=== PATIENT | male | born 1965 | race Caucasian/White ===

== ENCOUNTER 2016-11-25 03:28 | Inpatient (IN) | payer MEDICARE, MEDICAID ==
[2016-11-25] VITALS (10 sets, daily range): BP systolic 122–159; BP diastolic 66–87; PULSE 102–120; RESP 16–21; O2SAT 92–97
[~2016-11-25] VITALS: Ht 170.2 cm; Wt 77.3 kg
[~2016-11-25 03:28] MED LIST: D-ME118S8 PO; GABA600T2 PO; GLPZ5T PO; HYDR-3797 PO; HYDR-656 PO; KEP500TA PO; METF500T4 PO; MILK THISTLE; VIT BCOMPLEX; Vit C; [UNRECOGNIZED DRUG - OTHER]
--- NOTE | 2016-11-25 03:39 | ED.REPORT ---
HPI-General Illness Date of Service Nov 25, 2016 ED Provider: Delonte Gustafson MD A 51 year old male with a history of schizophrenia, diabetes, hyperlipidemia, substance abuse, leukopenia, GI bleed, and alcoholism is brought to the ED via EMS due to nausea. The pt was found laying on the street dry heaving, but was not vomiting at the time. Per pt, his legs are in pain and his abdomen has been sore for weeks. History is limited due to pt condition. His initial blood alcohol level in the ED is 0.280. Nursing Notes Stated Complaint: NAUSEA Nursing Notes Reviewed: Yes Allergies: Coded Allergies: Penicillins (Verified Allergy, Severe, Anaphylaxis, 11/25/16) enoxaparin (Verified Allergy, Intermediate, aggitation, 10/06/16) Tetanus Vaccines and Toxoid (Verified Allergy, Unknown, Shortness of Breath, 11/25/16) Scheduled Ascorbic Acid (Vitamin C) 1,000 Mg Tab.chew 1,000 MG PO DAILY Gabapentin (Gabapentin) 600 Mg Tablet 600 MG PO BID Glipizide (Glipizide) 5 Mg Tablet 5 MG PO BIDWM Metformin (Metformin) 500 Mg Tablet 1,000 MG PO BID Milk Thistle Seed Extract (Milk Thistle) 140 Mg Capsule Unknown Dose PO DAILY Turmeric Root Extract (Turmeric) 500 Mg Capsule Unknown Dose PO DAILY Vit B Comp/C/FA/Iron/Vit E (Vitamin B Complex Tablet) 1 Each Tablet 1 EACH PO DAILY Scheduled PRN hydrOXYzine Hcl (HydrOXYzine Hcl) 25 Mg Tablet 25 MG PO TID PRN PRN For Itching General Time Seen by MD: 03:39 Chief Complaint Other (Nausea) Hx Obtained From: EMS Arrived By: Ambulance Sudden in Onset?: No Onset Occurred: Onset unknown Recent Healthcare: Recent doctor visit, Recent hospitalization Similar Sx Previous: Yes Past Medical History Past Medical History ho workup for seizures (negative EEG, was previously on Keppra, discontinued by neurology-see their consultation from February 2015) Admit 02/2015 - ETOH/GI Bleed (intubated) Alcoholic liver cirrhosis with a hx of encephalopathy Schizophrenia Diabetes Mellitus, type 2 with neuropathy Hyperlipidemia Active visual hallucinations History of violent behavior with long-term time served for assault History of substance abuse Thrombocytopenia Leukopenia Hyperammonemia Neuropathy in legs Reports: Diabetes mellitus, Gastritis, Hyperlipidemia Past Surgical History EGD on 02/28/2015 - revealed Ulcerative vs monilial esophagitis and Hypertensive portal gastropathy toe surgery Family History Noncontributory Smoking History Current Every Day Smoker Social History Patient is a daily drinker and has a long-standing history of alcoholism Alcohol Use: >5 per day Drug Use: THC Other Social History: Poor social support, Homeless Ambulatory Status Independent Review of Systems Unable to Obtain ROS Intoxicated Physical Exam Vital Signs Vital Signs Date Time Temp Pulse Resp B/P Pulse Ox O2 Delivery O2 Flow Rate FiO2 11/25/16 03:30 36.7 120 20 93 Room Air Initial VS: Reviewed, Vital signs abnormal General/Constitutional: Awake disheveled growling vomit in hair covered in large amount of guaiac positive green-black stool Head / Eyes: Atraumatic, Normocephalic, PERRL, EOMI ENT: Atraumatic, Airway patent, Mucous membranes moist extensive dental decay Neck: Atraumatic, Supple, Full range of motion Respiratory / Chest: Atraumatic, Breath sounds NL, Breath sounds = bilat, No respiratory distress Cardiovascular: Heart rate NL, Regular rhythm, Heart sounds NL Abdomen: Atraumatic, Soft reducible periumbilical hernia diffuse mild abdominal tenderness without localization Back: Atraumatic, Full range of motion Upper Extremities Upper Extremity / MS: Atraumatic, Full range of motion Lower Extremity / Pelvis / MS: Atraumatic, Full range of motion chronic venous stasis changes on bilateral lower extremities Skin: Atraumatic, Color NL, No rash, Warm, Dry Neurologic: Oriented X3, Speech NL, No motor deficits, No sensory deficits Psychiatric: Mood NL Interpretation & Diagnostics Lab Results Interpretation Result Diagram: 11/25/16 0350 11/25/16 0350 Test 11/25/16 03:50 11/25/16 04:19 White Blood Count 13.9th/mm3 (3.8-10.1) Red Blood Count 4.63mil/mm3 (4.40-5.80) Mean Corpuscular Volume 93.1fL (81-100) Mean Corpuscular Hemoglobin 32.0pg (27.0-35.0) Mean Corpuscular Hemoglobin Concent 34.3% (32.0-37.0) Red Cell Distribution Width 13.5% (12.3-15.4) Platelet Count 190bil/L (150-400) Neutrophils (%) (Auto) 79.1% (40-74) Lymphocytes (%) (Auto) 11.7% (14-46) Monocytes (%) (Auto) 8.4% (4-12) Eosinophils (%) (Auto) 0.1% (0-5) Basophils (%) (Auto) 0.4% (0-3) Phosphorus Level 3.5mg/dL (2.5-4.9) Magnesium Level 2.4mg/dL (1.6-2.6) Total Creatine Kinase 65U/L (21-232) Lipase 38U/L (13-60) Alcohol, Quantitative 288mg/dL (0-10) Lab Results Interpretation: White blood count 13,900. INR is normal. Hematocrit 42.9, repeat pending. ECG Interpretation ECG Interpretation: sinus tachycardia with a rate of 114 prolonged QT interval Time: 06:37 Interpreted by: ED physician Re-Eval/Medical Decision Med Decision/Clinical Course 51-year-old male well known to us for chronic alcoholism. He presents after being found down beside the street with yelling and groaning because of his restless leg syndrome. He is also was incontinent of dark black guaiac positive diarrhea on 2 occasions here. There was no vomiting. His H&H is normal. INR is mildly elevated. His case was discussed with GI and with Dr. Bess. He was admitted to the hospitalist service. Source of Hx: Old records Time of Eval: 05:08 Patient Status: Condition improved Re-Evaluation/Progress Note: Pt rechecked and additional history is obtained. Need for admission is addressed. The pt understands and agrees with the plan. All questions are addressed at this time. Consultation #1: Referral / Consult Name: Zaina Bess MD Consulted With: Hospitalist Call Returned at: 05:59 Advanced Manufacturing Associate: Agrees with eval, Agrees with plan, Accepts admit Note: Spoke with Dr. Bess, hospitalist, regarding pt's case. Dr. Bess agrees with the evaluation and agrees to admit the pt. Consultation #2: Referral / Consult Name: Edmund Almanzar MD Call Returned at: 06:20 [employer] Manufacturing Associate: Agrees with eval, Agrees with plan Note: Consulted with Dr. Almanzar, GI, regarding pt's case. Dr. Almanzar agrees with the evaluation and plan. Counseled Regarding: Diagnosis, Lab results, Need for admission Discharge & Departure Primary Impression: Alcohol dependence Substance use status: with intoxication Complication of substance-induced condition: uncomplicated Qualified Code: F10.220 - Alcohol dependence with intoxication, uncomplicated Additional Impressions: Alcohol intoxication Complication of substance-induced condition: uncomplicated Qualified Code: F10.120 - Alcohol abuse with intoxication, uncomplicated Lower GI bleed Disposition: ADMITTED TO HOSPITAL Discharge Condition All VS Reviewed: Yes Condition: Stable Referrals: Kaela Daniel MD (PCP) Scribe Attestation Portions of this note were transcribed by Yovanny Oscar. I, Dr. Gustafson personally performed the history, physical exam and medical decision-making; I reviewed and confirmed the accuracy of the information in the transcribed note. Signed by: Hollis Kirby, 11/25/2016 and 06:54. copies to: Kaela Daniel MD, Howard L MD Nov 25, 2016 03:39 YOVANNY OSCAR Nov 25, 2016 04:23 (6.4-8.4) Albumin 3.4g/dL (3.4-5.0) Alcohol, Quantitative 288mg/dL (0-10) ECG Interpretation ECG Interpretation: sinus tachycardia with a rate of 114 prolonged QT interval Time: 06:37 Interpreted by: ED physician Re-Eval/Medical Decision Source of Hx: Old records Time of Eval: 05:08 Patient Status: Condition improved Re-Evaluation/Progress Note: Pt rechecked and additional history is obtained. Need for admission is addressed. The pt understands and agrees with the plan. All questions are addressed at this time. Consultation #1: Referral / Consult Name: Zaina Bess MD Consulted With: Hospitalist Call Returned at: 05:59 [employer] Associate: Agrees with eval, Agrees with plan, Accepts admit Note: Spoke with Dr. Bess, hospitalist, regarding pt's case. Dr. Bess agrees with the evaluation and agrees to admit the pt. Consultation #2: Referral / Consult Name: Edmund Almanzar MD Call Returned at: 06:20 [employer] Manufacturing Associate: Agrees with eval, Agrees with plan Note: Consulted with VAIBHAV Fagan, regarding pt's case. Dr. Almanzar agrees with the evaluation and plan. Counseled Regarding: Diagnosis, Lab results, Need for admission Discharge & Departure Primary Impression: Alcohol dependence Substance use status: with intoxication Complication of substance-induced condition: uncomplicated Qualified Code: F10.220 - Alcohol dependence with intoxication, uncomplicated Additional Impressions: Alcohol intoxication Complication of substance-induced condition: uncomplicated Qualified Code: F10.120 - Alcohol abuse with intoxication, uncomplicated Lower GI bleed Disposition: ADMITTED TO HOSPITAL Discharge Condition All VS Reviewed: Yes Condition: Stable Referrals: Kaela Daniel MD (PCP) Scribe Attestation Portions of this note were transcribed by Yovanny Oscar. I, Dr. Gustafson personally performed the history, physical exam and medical decision-making; I reviewed and confirmed the accuracy of the information in the transcribed note. Signed by: Hollis Kirby, 11/25/2016 and 06:54. copies to: Kaela Daniel MD, Howard L MD Nov 25, 2016 03:39 YOVANNY OSCAR Nov 25, 2016 04:23
[2016-11-25 04:13] LABS: BASOPHILS % (AUTO) 0.4 % (0-3); EOSINOPHILS % (AUTO) 0.1 % (0-5); MONOCYTES % (AUTO) 8.4 % (4-12); Mean Corpuscular Volume 93.1 fL (81-100); NEUTROPHILS % (AUTO) 79.1 % (40-74); Platelet Count 190 bil/L (150-400)
[2016-11-25 04:27] LABS: INR 1.11 ratio
[2016-11-25 04:34] LABS: Magnesium 2.4 mg/dL (1.6-2.6)
[2016-11-25] MEDS ORDERED: HYDROmorphone 0.5 mg/0.5 mL iSecure Syringe IVPUSH ONE (05:10)
[2016-11-25] MEDS ORDERED: Pantoprazole 4 mg/mL 10 mL Inj IVPUSH SCH (06:20)
[2016-11-25] MEDS ORDERED: Thiamine Inj 100 MG, Folic Acid Inj 1 MG, Magnesium Sulfate 50% Inj 2 GM, Multivitamins... IV ONE ×5 (06:20)
--- NOTE | 2016-11-25 06:38 | PCM.HPMED ---
Subjective Date of Service Nov 25, 2016 Primary Provider: Admitting Physician: Zaina Bess MD Primary Care Physician: Kaela Daniel MD Attending Physician: Zaina Bess MD Admit Status: From the Emergency Department, Full Admit, [facility] Telemetry Chief Complaint: Nausea and alcohol intoxication History of Present Illness: Is a 51-year-old male who has a history of schizophrenia type II diabetes substance abuse history of GI bleed and alcoholism who presented to the emergency room via EMS for being found down with dry heaves and nausea. Patient is a poor historian due to alcohol intoxication and only complaint is pain in his legs along with abdominal pain for several weeks. His initial alcohol level was 280. He was found to have melena upon presentation to the emergency room. He was not hypotensive. He had at least several loose black stools. His initial hematocrit is 43.1. Glucose was found to be 378. Count is 13.9. AST is 36 ALT is 21 alkaline phosphatase is 95 total bili 0.5. BUN is 17 creatinine 0.66 INR is 1.11 PTT is pending. Review of Systems: Patient does complain of chronic cough. Denies any fevers or chills. Patient is a poor historian so difficult to get accurate review of systems completed. Allergies Coded Allergies: Penicillins (Verified Allergy, Severe, Anaphylaxis, 11/10/16) enoxaparin (Verified Allergy, Intermediate, aggitation, 10/06/16) Tetanus Vaccines and Toxoid (Verified Allergy, Unknown, 10/06/16) Home Medications Scheduled Gabapentin (Gabapentin) 600 Mg Tablet 600 MG PO TID Gabapentin (Gabapentin) 600 Mg Tablet 600 MG PO TID Glipizide (Glipizide) 5 Mg Tablet 5 MG PO BIDWM Levetiracetam (Keppra) 500 Mg Tablet 500 MG PO BID Metformin (Metformin) 500 Mg Tablet 1,000 MG PO BID Metformin (Metformin) 500 Mg Tablet 1,000 MG PO BID Promethazine DM Syrup (Promethazine DM Syrup) 118 Ml Syrup 5 ML PO HS Scheduled PRN Hydroxyzine Pamoate (HydrOXYzine Pamoate) 25 Mg Capsule 25 MG PO Q6H PRN PRN For Itching hydrOXYzine Hcl (HydrOXYzine Hcl) 25 Mg Tablet 25 MG PO TID PRN PRN For Itching Miscellaneous Medications ([ Vit Bcomplex]) ([Vit C]) ([Milk thistle]) ([Turm]) PMH Past Medical History ho workup for seizures (negative EEG, was previously on Keppra, discontinued by neurology-see their consultation from February 2015) Admit 02/2015 - ETOH/GI Bleed (intubated) Alcoholic liver cirrhosis with a hx of encephalopathy Schizophrenia Diabetes Mellitus, type 2 with neuropathy Hyperlipidemia Active visual hallucinations History of violent behavior with halfway time served for assault History of substance abuse Thrombocytopenia Leukopenia Hyperammonemia Neuropathy in legs Reports: Diabetes mellitus, Gastritis, Hyperlipidemia Past Surgical History EGD on 02/28/2015 - revealed Ulcerative vs monilial esophagitis and Hypertensive portal gastropathy toe surgery Family History Patient denies any thing pertinent such as cardiovascular disease. Social History Hx Alcohol Use: Yes Hx Substance Use: No Hx Tobacco Use: Yes Smoking Status: Current Every Day Smoker Living Arrangement: Homeless Exam Vital Signs Vital Sign - Last Date Time Temp Pulse Resp B/P Pulse Ox O2 Delivery O2 Flow Rate FiO2 11/25/16 03:30 36.7 120 20 93 Room Air Exam Constitutional: Disheveled middle-aged male who looks older than his stated age Head: Normocephalic and atraumatic Eyes: PERRLA DC EOMI Neck: No adenopathy Chest: Clear to auscultation anteriorly however patient refuses to sit up to allow me to listen to his lungs and back Cor: Regular rate and rhythm S1-S2 without murmur Abdomen: Mild diffuse tenderness no rebound no guarding bowel sounds are positive Extremities: He has trace bilateral pedal edema with some chronic venous stasis changes Skin: No rashes Psych: due to patient's intoxication difficult to assess. Patient seems somewhat anxious and angry Neuro: Patient is awake and alert. He is oriented to place and person. Motor and sensory are intact bilaterally. Lab and Diagnostics Labs Laboratory Tests 72 Hours Test 11/25/16 03:50 11/25/16 04:19 White Blood Count 13.9th/mm3 (3.8-10.1) Red Blood Count 4.63mil/mm3 (4.40-5.80) Hemoglobin 14.8g/dL (13.8-17.2) Hematocrit 43.1% (41.0-50.0) Mean Corpuscular Volume 93.1fL (81-100) Mean Corpuscular Hemoglobin 32.0pg (27.0-35.0) Mean Corpuscular Hemoglobin Concent 34.3% (32.0-37.0) Red Cell Distribution Width 13.5% (12.3-15.4) Platelet Count 190bil/L (150-400) Neutrophils (%) (Auto) 79.1% (40-74) Lymphocytes (%) (Auto) 11.7% (14-46) Monocytes (%) (Auto) 8.4% (4-12) Eosinophils (%) (Auto) 0.1% (0-5) Basophils (%) (Auto) 0.4% (0-3) Prothrombin Time 11.9sec (8.1-12.5) Prothromb Time International Ratio 1.11ratio Sodium Level 135mEq/L (134-144) Potassium Level 4.1mEq/L (3.5-5.2) Chloride Level 88mEq/L (97-108) Carbon Dioxide Level 22mmol/L (18-29) Blood Urea Nitrogen 17mg/dL (6-24) Creatinine 0.66mg/dL (0.76-1.27) Estimat Glomerular Filtration Rate 136mL/min (>59) Glucose Level 378mg/dL (60-99) Calcium Level 9.0mg/dL (8.5-10.1) Magnesium Level 2.4mg/dL (1.6-2.6) Total Bilirubin 0.5mg/dL (0.0-1.2) Aspartate Amino Transf (AST/SGOT) 36U/L (0-50) Alanine Aminotransferase (ALT/SGPT) 21U/L (0-44) Alkaline Phosphatase 95U/L (25-150) Total Protein 8.6g/dL (6.4-8.4) Albumin 3.4g/dL (3.4-5.0) Alcohol, Quantitative 288mg/dL (0-10) Result Diagram: 11/25/16 03511/25/16 035 X-Rays, CTs and MRIs Chest x-ray is pending 12-lead ECG Twelve-lead EKG is pending Assessment & Plan # Alcohol intoxication, acute on chronic, present on admission We will place on CIWA protocol. This will include IV banana bag. We will also check ammonia level # GI bleed with melena, acute, present on admission We will type and hold for PRBCs Check PT PTT GI is to be notified by ER M.D. We will also check stool PCR and stool for WBCs Patient is to be started on Protonix strip done in the ER and will continue that Ensure proper IV access including 2 large bore IVs # Type II diabetes, chronic, present on admission We will place on subcutaneous regular insulin protocol # Schizophrenia, chronic, present on admission We will get case management and manager social responsibility consultations # DVT prophylaxis We will use SCDs and not place on subcutaneous anticoagulation given GI bleed # CODE STATUS Full code GI Prophylaxis: Proton Pump Inhibitor VTE Prophylaxis Indicated: Contraindicated Resuscitation Status: CPR: Attempt Resuscitation Time spent 60 minutes Zaina Bess MD Nov 25, 2016 06:38
[2016-11-25 07:25] LABS: Phosphorus 3.5 mg/dL (2.5-4.9)
[2016-11-25] MEDS ORDERED: Pantoprazole 80 mg/100 mL NS Bolus IV ONE ×2 (07:25)
[2016-11-25] MEDS ORDERED: GABA600T2 PO (07:35)
[2016-11-25] MEDS ORDERED: MILK1CAP3 PO (07:35)
[2016-11-25] MEDS ORDERED: VIT1TABL83 PO (07:35)
[2016-11-25] MEDS ORDERED: ASCO100089 PO (07:35)
[2016-11-25] MEDS ORDERED: TURM500C7 PO (07:35)
--- NOTE | 2016-11-25 08:00 | NUR ---
Admit Pt reports he lives in the [facility] and has not taken his meds for a week due to "having a cold" and not wanting to get out of his covers due to cold weather. Reports he drinks alcohol to control his pain; reports last drank a couple days ago. Complains of 8/10 generalized pain, which is chronic, but worse "because of the cold." States he was recently treated for MRSA of his right foot; will place in contact precautions. Refuses flu shot. Allergies verified and sticker placed on name band. Med rec completed. Report given to primary RNJarrett.
[2016-11-25 08:04] LABS: INR 1.16 ratio
[2016-11-25 08:17] LABS: TROPONIN T < 0.010 ug/L (0.0-0.011)
[2016-11-25] MEDS: 0.9% Sodium Chloride 1,000 ML IV SCH ×5 (08:41→20:08)
[2016-11-25] MEDS: Insulin Human REGular 300 Unit/3 mL Inj SUBQ SCH ×3 (08:43→20:04)
[2016-11-25] MEDS: Ondansetron 2 mg/mL 2 mL Inj IVPUSH PRN (08:44)
--- NOTE | 2016-11-25 10:01 | DRSVH ---
PROCEDURE: X-RAY CHEST ONE VIEW, PORTABLE ([id number]) INDICATIONS: GI bleed TECHNIQUE: One view of the chest was acquired. COMPARISON: [facility], CR, XR CHEST 2VW, 05/14/2016, 20:59. [facility], CR, XR CHEST 1VW (PORTABLE), 11/10/2016, 9:40. FINDINGS: Surgical changes and devices: None. Lungs and pleura: Left basilar opacity may be infiltrate or atelectasis. No pleural effusions or pne umothorax. Lungs are clear. Mediastinum: Mediastinal contours appear normal. Heart size is normal. Bones and chest wall: No suspicious bony lesions. Overlying soft tissues appear unremarkable. IMPRESSION: Left basilar pneumonia, aspiration or atelectasis Dictated by: Prakash Lezama M.D. on 11/25/2016 at 9:59 Approved by: Prakash Lezama M.D. on 11/25/2016 at 9:59
--- NOTE | 2016-11-25 10:14 | PCM.PNMED ---
Subjective Date of Service Nov 25, 2016 Subjective Patient is hallucinating. He states he feels very thirsty. He has whole body pain. He notes he currently lives deep in the fours. He denies any chest pain. He is having some dyspnea. He feels very anxious and tremulous. Exam Vital Signs Vital Sign - Last Date Time Temp Pulse Resp B/P Pulse Ox O2 Delivery O2 Flow Rate FiO2 11/25/16 07:27 36.6 120 19 122/85 95 Room Air Exam Patient is tremulous. He is alert and oriented 3. He has pressured speech. Cachectic head. Anicteric sclerae Neck supple Lungs with tachypnea, otherwise clear normal effort Heart is tachycardic without murmur Abdomen is distended. She does havean umbilical capitus medusa Extremities no foot are 1+ edema. Good pedal pulses. His arms and legs spontaneously. On speech IVs and Medications Medications Reviewed: Medications were reviewed in detail Lab and Diagnostics Result Diagram: 11/25/16 0700 11/25/16 0700 X-Rays, CTs and MRIs Chest x-ray is pending 12-lead ECG Twelve-lead EKG is pending Assessment & Plan 1. Acute alcohol withdrawal. POA. The patient appears to be moderate to severe withdrawal. His Jesus had enough doses of Valium that sedation is a issue. He is also to Depleted. Will transfer him to CCU for intensive monitoring and resuscitation. 2. Lactic acidosis, POA. I will check a chest x-ray, urinalysis and blood cultures 2. Serial lactic acid measurements. Aggressive fluid resuscitation with normal saline. 3. Severe vitamin depletion, PMI. Plan is for fluid resuscitation 4. Possible GI bleed with melena, acute, present on admission We will type and hold for PRBCs Check PT PTT GI is to be notified by ER M.D. We will also check stool PCR and stool for WBCs Patient is to be started on Protonix strip done in the ER and will continue that Ensure proper IV access including 2 large bore IVs. We will follow serial hematocrits. We will add IV Protonix drip and actually it had given a history of cirrhosis and ascites and capitis medusa. 5. Type II diabetes, chronic, present on admission We will place on subcutaneous regular insulin protocol 6. Schizophrenia, chronic, present on admission We will get case management and social media intern consultations 7. DVT prophylaxis We will use SCDs and not place on subcutaneous anticoagulation given GI bleed # CODE STATUS Full code Pain Evaluation: Adequate Pain Control GI Prophylaxis: Proton Pump Inhibitor Resuscitation Status: CPR: Attempt Resuscitation Time spent 30 minutes Chinedu Kelly MD Nov 25, 2016 10:14
--- NOTE | 2016-11-25 10:21 | NUR ---
Social Work Screening D: EMR Reviewed. Pt is a 51Y old male admitted for Alcohol Dependence/Melene. Insurance is Medicare and HS Supp. PCP is Dr. Daniel. Per EMR Review/Discussion in rounds, Pt is homeless and lives in a tent in [place]. Pt CM is Lea Miguel at [facility]. SW called [phone] and left VM indicating Pt in hospital, requested a call back. Pt had a BAL of 280 in ED and CIWA is now 28. Pt also diagnosed with Schizophrenia. Pt does not have [facility] transport benefit. SW updated Pt is transferring to CCU at this time. CD/MH will need to be completed when appropriate. SW to follow. A: Pt who is homeless with CD/MH concerns P: SW to follow for CD/MH assessment when appropriate. Anticipate Pt to discharge back to homelessness as he has in the past. SW following DEMAR Nieto
[2016-11-25] MEDS: Octreotide Inj 500 MCG in 0.9% Sodium Chloride 99 ML IV SCH ×2 (12:05→20:08)
[2016-11-25] MEDS: Pantoprazole 8 mg/Hr Infusion IV SCH ×6 (12:12→22:14)
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
--- NOTE | 2016-11-25 14:41 | NUR ---
ADMIT TO [facility] Patient arrived to [facility] at 0730, oriented patient to room and hospital policy. Admit and med rec done by Puneet YATES. Patient started on NS 100ml/hr. VS done and telemetry box needed as well as pulse ox. Patient appears agitated and groaning out but does not appear in acute pain. Receive critical lab from lab, Lactic acid 5.8, MD Kelly made aware and Bolus on NS, blood cultures and antibiotics requested. Addendum: 11/25/16 at 1623 by REJI LANGSTON RN CIWA Patient in apparent ETOH withdrawal, CIWA scores 26-35, 5mg Diazepam given x 10 over 7hrs. Patient tolerating fair. Protonix and Octreotide drips running at 10ml/hr after bolus on each. Patient received bolus 1L NS and one banana bag. Lactic acid now 3.1. Patient remains tachy HR 100-120, slight fever 37.6, and BP 130's. Plan is to stabilize ETOH withdrawal and then proceed with GI workup. Will monitor H&H and guaiac stools. Addendum: 11/25/16 at 1625 by REJI LANGSTON RN TRANSFER TO CCU Patient transferred to CCU room 2013, at 1530. Report given to Raine YATES, medications and belongings transferred with patient.
[2016-11-25] MEDS: Clindamycin Inj 600 MG in IV Premix 1 EACH IV SCH ×2 (16:49→21:43)
--- NOTE | 2016-11-25 17:57 | NUR ---
Transfer to CCU/CIWA/O2 Pt arrived from [facility] to CCU at 1520 in stable condition. Oriented with RASS score of -1. CIWA score of 32, which 10mg of valium given. Vitals stable on 3L NC, end tidal CO2 set up with number from 32-40, RR in the teens up to 21. Pt c/o foot pain that is stabbing and sharp. When asked what he usually does for it at home, he states he drinks to help the pain. Frequent rounding, CIWA score and mouth care done. Bed alarm on.
[2016-11-25 23:41] LABS: APPEARANCE,URINE CLEAR (CLEAR,HAZY); COLOR,URINE YELLOW (YELLOW); OCCULT BLOOD,URINE NEGATIVE (NEGATIVE); PH,URINE 6.5 (5.0-8.0); UROBILINOGEN,URINE NORMAL (NORMAL)
[2016-11-26] VITALS (9 sets, daily range): BP systolic 107–125; BP diastolic 67–79; PULSE 87–96; RESP 11–20; O2SAT 93–99
[2016-11-26] MEDS: Insulin Human REGular 300 Unit/3 mL Inj SUBQ SCH ×4 (03:40→20:51)
--- NOTE | 2016-11-26 03:49 | NUR ---
CIWA/GI Patient anxious and moaning, TOBY 12-15, Valium given PRN with good effect, c/o chest burning pain and feels like he cant get phlegm out of his throat, "I feel like I'm going to , take mw to the OR, I have gangrene on my feet", patient stated he has had soft black spots on toes for quite awhile, burning with voiding and UA sent, no GI bleeding noted, no melena stool and no BM this shift, resting after Valium given, no distress noted, will continue to monitor. Addendum: 11/26/16 at 0355 by JAILYN CRUZ RN Amended: Links added.
[2016-11-26 05:23] LABS: BASOPHILS % (AUTO) 0.3 % (0-3); EOSINOPHILS % (AUTO) 1.1 % (0-5); MONOCYTES % (AUTO) 11.8 % (4-12); Mean Corpuscular Hemoglobin 32.3 pg (27.0-35.0); NEUTROPHILS % (AUTO) 70.9 % (40-74); Platelet Count 95 bil/L (150-400)
[2016-11-26] MEDS: Clindamycin Inj 600 MG in IV Premix 1 EACH IV SCH ×3 (05:29→22:28)
--- NOTE | 2016-11-26 06:32 | NUR ---
Potassium Notified Dr. Bess of K 3.6, ordered to hold off on K replacement since patient has not had an BM's this shift.
[2016-11-26] MEDS: Octreotide Inj 500 MCG in 0.9% Sodium Chloride 99 ML IV SCH ×2 (07:20→16:19)
[2016-11-26] MEDS: Pantoprazole 8 mg/Hr Infusion IV SCH ×4 (08:03→20:50)
[2016-11-26] MEDS ORDERED: Insulin GLARgine 100 Unit/mL Syringe SUBQ ONE (08:30)
--- NOTE | 2016-11-26 11:39 | PCM.HPANE ---
Patient Data Surgeon Admitting Provider:Zaina Bess MD Attending Provider:Zaina Bess MD Primary Care Physician:Kaela Daniel MD Other Provider: Reason for Visit Alcohol Dependence, Melene ALCOHOL DEPENDENCE, MELENE Ht/WT & BMI Height (Feet): 5 Height (Inches): 7 Weight (Kilograms): 78.100 Body Mass Index Allergies Coded Allergies: Penicillins (Verified Allergy, Severe, Anaphylaxis, 11/25/16) enoxaparin (Verified Allergy, Intermediate, aggitation, 10/06/16) Tetanus Vaccines and Toxoid (Verified Allergy, Unknown, Shortness of Breath, 11/25/16) Past Anesthesia History Anesthesia History: Denies:: Anesthesia Reactions Diabetes History Hx Diabetes?: Yes (DM2) Current Bedside Blood Glucose: 198 MRSA MRSA: Yes (Right foot; 2015) Medications Active Scripts hydrOXYzine Hcl (HydrOXYzine Hcl)25 Mg Rymfoa25 Mg PO TID PRN For Itching #21 TABLET Ref 0 Prov:Dimitris Omer DO 10/01/16 Glipizide 5 Mg Tablet5 Mg PO BIDWM 30 Days Prov:Dimitris Omer DO 07/13/15 Reported Medications Ascorbic Acid (Vitamin C)1,000 Mg Tab.chew1,000 Mg PO DAILY Ref 0 11/25/16 Turmeric Root Extract (Turmeric)500 Mg CapsuleUnknown Dose PO DAILY 11/25/16 Milk Thistle Seed Extract (Milk Thistle)140 Mg CapsuleUnknown Dose PO DAILY 11/25/16 Vit B Comp/C/FA/Iron/Vit E (Vitamin B Complex Tablet)1 Each Tablet1 Each PO DAILY 11/25/16 Gabapentin 600 Mg Benfrh293 Mg PO BID Ref 0 11/25/16 Metformin 500 Mg Tablet1,000 Mg PO BID Ref 0 03/18/16 Discontinued Reported Medications [Turm] No Conflict Check 11/10/16 [Milk thistle] No Conflict Check 11/10/16 [Vit C] No Conflict Check 11/10/16 [ Vit Bcomplex] No Conflict Check 11/10/16 Discontinued Scripts Promethazine DM Syrup 118 Ml Syrup5 Ml PO HS COUGH 7 Days Prov:Lino Parisi MD 11/10/16 Levetiracetam (Keppra)500 Mg [id number] Mg PO BID #10 TABLET Prov:Delonte Gustafson MD 10/06/16 Gabapentin 600 Mg [id number] Mg PO TID #21 TABLET Ref 0 Prov:Dimitris Omer DO 10/01/16 Metformin 500 Mg Tablet1,000 Mg PO BID #28 TABLET Ref 0 Prov:Dimitris Omer DO 10/01/16 Hydroxyzine Pamoate (HydrOXYzine Pamoate)25 Mg Iiakytw32 Mg PO Q6H PRN For Itching #20 CAPSULE Prov:Miguel Ángel Ndiaye MD 08/27/16 Gabapentin 600 Mg [id number] Mg PO TID #30 TABLET Ref 0 Prov:Miguel Ángel Ndiaye MD 08/27/16 History History of ENT Problems?: No HEENT History: Denies:: Cataracts Dysphagia Glaucoma Sinus Problem Hx of Heart Problems?: Yes Cardiovascular History: Positive for:: Edema ("In my feet") Hypertension ("Sometimes") Denies:: Cardiac Surgery Chest Pain Congestive Heart Failure Heart Murmur Irregular Heartbeat Pacemaker Thrombophlebitis Hx of Respiratory Problem?: Yes Respiratory History: Positive for:: Hemoptysis Denies:: Asthma COPD Chest Surgery Dyspnea Emphysema Pneumonia Tuberculosis Hx Neurologic Problems?: Yes Neurological History: Positive for:: Dizziness Seizures ("2 seizures back to back") Denies:: Alzheimer's Disease CVA Dementia Headaches Parkinson's Disease Other Neurological Pertinent: "Some memory loss from alcohol" Hx of GI Problems?: Yes Gastrointestinal History: Positive for:: Gastroesphageal Reflux Gastrointestinal Bleeding (This visit) Heartburn Rectal Bleeding (This visit) Denies:: Diverticulitis Hepatitis Hiatal Hernia Other GI Pertinent History: Umbilical hernia Hx of Problems?: No Genitourinary History: Denies:: HX of Hemodialysis Kidney Stones Urinary Tract Infection HX of Peritoneal Dialysis: No Male Hx: Denies:: Prostate Problems Scrotal Mass Testicular Surgery Hx Musculoskeletal Problems?: No Musculoskeletal History: Denies:: Back Injury Joint Replacement Musculoskeletal Trauma Hx of Psycho/Social Problems?: Yes Psycho Social History: Positive for:: Anxiety Hx Depression Denies:: Bipolar Disorder Suicide Attempt Other Psych Pertinent History: Paranoid schizophrenia Hx Surgeries?: Yes (vasectomy) Hx Any Other Health Problems?: Yes Other History: Positive for:: Cancer (Skin) Hospitalization Denies:: Thyroid Disease History Blood Transfusions: Positive for:: Accept Blood Products? Denies:: Blood Transfuse Reaction Blood Transfusions Hx Diabetes: Yes (DM2)Bedside Blood Glucose: 198 Hx Alcohol Use: YesAlcoholic Drinks Per Day: "Only when I can't take the pain anymore"Hx Substance Use: No Smoking Status: Current Every Day Smoker Have You Smoked inLast 12 mo: Yes ("A few a day") Stop/Bang S-Snoring: Do You Snore Loudly: No T-Tired: feel tired, fatigued: No O-Obsered: Observed not breath: No P-Blood Pressure: treated: No B- Body Mass Index > 35 kg/m2: No A- Age over 50: No N- Neck Large Circumference: No G- Gender Male: Yes RADHA Total Score: 1 Risk Assessment Category Category 1A: Patient has history of documented sleep apnea, and HAS NOT received any narcotic, sedative or anesthesia administration during this stay. Category 1B: Patient has history of documented sleep apnea, and HAS received any narcotic , sedative or anesthesia administration during this stay Category 2: Patient has SUSPECTED Obstructive Sleep Apnea, and HAS received any narcotic , sedative or anesthesia administration during this stay. Category 3: Patient has SUSPECTED Obstructive Sleep Apnea and HAS NOT received narcotic, sedative or anesthesia administration during this stay. Category 4: Outpatient in Procedural Areas with known sleep apnea or who screen positive for High Risk via the STOP/BANG questionnaire. Exam Exam Vital Signs Vital Signs Date Time Temp Pulse Resp B/P Pulse Ox O2 Delivery O2 Flow Rate FiO2 11/26/16 09:42 93 11/26/16 07:31 Supplement Oxygen 11/26/16 07:31 37.0 96 18 122/79 96 Nasal Cannula 3.00 11/26/16 03:45 Supplement Oxygen 11/26/16 03:45 37.2 93 15 123/74 97 Nasal Cannula 3.00 Meds/Labs/Diagnostics Admission Meds Current Medications Clindamycin Phosphate/ Dextrose/Premix (Cleocin Inj/IV Premix) 50 ml @ 100 mls/ hr Q8H IV Last administered on 11/26/16t 05:29; Start 11/25/16 at 14:00 Bedside Blood Glucose: 198 Labs Test 11/25/16 03:50 11/25/16 04:19 11/25/16 07:00 11/25/16 13:30 Phosphorus Level 3.5mg/dL (2.5-4.9) Magnesium Level 2.4mg/dL (1.6-2.6) Total Creatine Kinase 65U/L (21-232) Lipase 38U/L (13-60) Alcohol, Quantitative 288mg/dL (0-10) Prothrombin Time 12.5sec (8.1-12.5) Prothromb Time International Ratio 1.16ratio Activated Partial Thromboplast Time 25.0sec (22.8-33.0) Ammonia 92ug/dL (18-53) Vitamin B12 Level 903pg/mL (211-946) Lactic Acid Level 3.1mmol/L (0.4-2.0) Test 11/25/16 18:42 11/25/16 23:25 11/26/16 05:00 Troponin T < 0.010ug/L (0.0-0.011) Urine Color Yellow (YELLOW) Urine Appearance Clear (CLEAR,HAZY) Urine pH 6.5 (5.0-8.0) Urine Specific Chappell 1.020 (1.003-1.035) Urine Protein Negativemg/dL (NEG,TRACE) Urine Glucose (UA) 500mg/dL (NEGATIVE) Urine Ketones 15mg/dL (NEGATIVE) Urine Occult Blood Negative (NEGATIVE) Urine Nitrite Negative (NEGATIVE) Urine Bilirubin Negative (NEGATIVE) Urine Urobilinogen Normalmg/dL (NORMAL) Urine Leukocyte Esterase Negative (NEGATIVE) Urine RBC 0-2/hpf (0-2) Urine WBC 0-5/hpf (0-5) Urine Epithelial Cells Few/hpf (NONE-MOD) Urine Crystals None seen (NONE SEEN) Urine Bacteria Few/hpf (NONE-FEW) Urine Hyaline Casts None/lpf (NONE) Urine Granular Casts None seen (NONE SEEN) Urine Waxy Casts None seen (NONE SEEN) Urine Red Blood Cell Casts None seen (NONE SEEN) Urine White Blood Cell Casts None seen (NONE SEEN) Urine Mucus None seen (None Seen) Urine Trichomonas None seen (NONE SEEN) Urine Yeast None (NONE SEEN) Urinalysis Comment None Urine Culture Reflexed Not indicated Urine Opiates Screen Negative Urine Methadone Screen Negative Urine Barbiturates Screen Negative Urine Amphetamines Screen Negative Urine Benzodiazepines Screen Negative Urine Cocaine Metabolite Screen Negative Urine Cannabinoids Screen Negative White Blood Count 6.6th/mm3 (3.8-10.1) Red Blood Count 3.50mil/mm3 (4.40-5.80) Hemoglobin 11.3g/dL (13.8-17.2) Hematocrit 33.6% (41.0-50.0) Mean Corpuscular Volume 96.0fL (81-100) Mean Corpuscular Hemoglobin 32.3pg (27.0-35.0) Mean Corpuscular Hemoglobin Concent 33.6% (32.0-37.0) Red Cell Distribution Width 14.0% (12.3-15.4) Platelet Count 95bil/L (150-400) Neutrophils (%) (Auto) 70.9% (40-74) Lymphocytes (%) (Auto) 15.7% (14-46) Monocytes (%) (Auto) 11.8% (4-12) Eosinophils (%) (Auto) 1.1% (0-5) Basophils (%) (Auto) 0.3% (0-3) Sodium Level 136mEq/L (134-144) Potassium Level 3.6mEq/L (3.5-5.2) Chloride Level 98mEq/L (97-108) Carbon Dioxide Level 26mmol/L (18-29) Blood Urea Nitrogen 11mg/dL (6-24) Creatinine 0.53mg/dL (0.76-1.27) Estimat Glomerular Filtration Rate 175mL/min (>59) Glucose Level 220mg/dL (60-99) Calcium Level 7.1mg/dL (8.5-10.1) Total Bilirubin 1.4mg/dL (0.0-1.2) Aspartate Amino Transf (AST/SGOT) 31U/L (0-50) Alanine Aminotransferase (ALT/SGPT) 16U/L (0-44) Alkaline Phosphatase 69U/L (25-150) Total Protein 6.5g/dL (6.4-8.4) Albumin 2.8g/dL (3.4-5.0) Plan Impression NPO Status: > 8 hours Other CASE cancelled due to Chest Pain. Being worked up at this time. Josh Orellana MD Nov 26, 2016 11:39
[2016-11-26] MEDS: 0.9% Sodium Chloride 1,000 ML IV SCH ×2 (12:21→16:18)
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
--- NOTE | 2016-11-26 15:15 | PCM.PNMED ---
Subjective Date of Service Nov 26, 2016 Subjective Patient is still encephalopathic. He is able to answer very simple questions. He mutters. No meaningful ROS subjective can be obtained. Exam Vital Signs Vital Sign - Last Date Time Temp Pulse Resp B/P Pulse Ox O2 Delivery O2 Flow Rate FiO2 11/26/16 12:03 36.7 91 20 107/67 93 Nasal Cannula 3.00 Intake and Output 11/25/16 11/25/16 11/26/16 Cumulative From/Thru 14:59 22:59 06:59 11/25/16 03:30 - 11/26/16 06:37 Intake Total 3314 ml 1654 ml 4968 ml Output Total 500 ml 1750 ml 2250 ml Balance 2814 ml -96 ml 2718 ml Intake IV Total 3314 ml 1654 ml 4968 ml Output Urine Total 500 ml 1750 ml 2250 ml Stool Total 0 ml 0 ml # Bowel Movements 0 0 Exam Patient appears comfortable. He is monitoring and has slurred speech. No distress. Anicteric sclera. Symmetric pupils. Neck supple. Lungs are clear normal effort. Heart is regular without murmur gallop or rub. Soft Nondistended. Extremities Are Free of Edema and Pedal Pulses. IVs and Medications Medications Reviewed: Medications were reviewed in detail Lab and Diagnostics Result Diagram: 11/26/16 0500 11/26/16 0500 X-Rays, CTs and MRIs Chest x-ray is pending 12-lead ECG Twelve-lead EKG is pending Assessment & Plan 1. Acute alcohol withdrawal. POA. The patient appears to be moderate to severe withdrawal. His Jesus had enough doses of Valium that sedation is a issue. He is also volume depleted. He is slowly improving but still will have to be on the C1 protocol. We will change his status to PCU. 2. Lactic acidosis, POA. Improved. Continue with IV fluid resuscitation. 3. Severe volume depletion, POA. Plan is for fluid resuscitation 4. Possible GI bleed with melena, acute, present on admission Continue Protonix and stop octreotide. His hematocrit has been relatively stable. Had to delay his endoscopy today because of transient chest pain. This in context of ammonia and cough. 5. Possible aspiration pneumonia on an x-ray. POA. This is stable. Continue clindamycin. He has penicillin allergic. 6. Type II diabetes, chronic, present on admission We will place on subcutaneous regular insulin protocol, this is stable. 6. 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 DVT prophylaxis We will use SCDs and not place on subcutaneous anticoagulation given GI bleed 8. Chest pain Cardiology. This is transient. ECG and troponin are unremarkable. We will continue to follow clinically. # CODE STATUS Full code Pain Evaluation: Adequate Pain Control GI Prophylaxis: Proton Pump Inhibitor VTE Mechanical Devices: Intermittant Pneumatic CD Resuscitation Status: CPR: Attempt Resuscitation Time spent 20 minutes Chinedu Kelly MD Nov 26, 2016 15:15
[2016-11-26] MEDS ORDERED: Calcium Chl 10% (Gm) Inj 1 GM in Dextrose 5% 100 ML IV ONE (15:20)
--- NOTE | 2016-11-26 18:42 | NUR ---
Transfer PCC/CIWA/Chest pain/Resp Patient a/o x 2-3, anxious and restless at times when he needs to urinate or having pain. CIWA 21 and 10. Valium x 1 given, patient slept for approx 2 hr. Patient c/o chest pain radiating across chest that does not increase with deep breath, but occurred during coughing spell. Patient bringing up thick flores sputum, lungs course bilat. Anesthes MD at bedside during chest pain episode and EGD procedure cancelled this afternoon. Dr Kelly on floor and updated on plan. Patient voiding per urinal indep and with assist as well as incont x 1. Patient c/o bilat foot pain r/t sores and neuropathy. VSS, tele SR. Will cont poc.
[2016-11-27] VITALS (7 sets, daily range): BP systolic 112–134; BP diastolic 73–85; PULSE 79–96; RESP 10–20; O2SAT 97–99
[2016-11-27] MEDS: Octreotide Inj 500 MCG in 0.9% Sodium Chloride 99 ML IV SCH (02:15)
[2016-11-27] MEDS: 0.9% Sodium Chloride 1,000 ML IV SCH ×2 (02:45→14:00)
[2016-11-27] MEDS: Insulin Human REGular 300 Unit/3 mL Inj SUBQ SCH ×4 (02:47→22:29)
[2016-11-27] MEDS: Ondansetron 2 mg/mL 2 mL Inj IVPUSH PRN (02:55)
[2016-11-27 04:06] LABS: BASOPHILS % (AUTO) 0.3 % (0-3); EOSINOPHILS % (AUTO) 2.4 % (0-5); MONOCYTES % (AUTO) 14.7 % (4-12); Mean Corpuscular Hemoglobin 32.3 pg (27.0-35.0); Mean Corpuscular Volume 95.1 fL (81-100); NEUTROPHILS % (AUTO) 61.6 % (40-74); Platelet Count 77 bil/L (150-400)
--- NOTE | 2016-11-27 05:37 | NUR ---
CP/CIWA Pt c/o CP -06/26 pain is unchanged, administered 2mg PRN Morphine x2 this shift and pt stated he felt "some relief" and was able to sleep at times. Pt CIWA - x2, administered 10mg Valium x2 this shift and effective, pt able to rest calmly. VSS and Tele SR
[2016-11-27] MEDS: Clindamycin Inj 600 MG in IV Premix 1 EACH IV SCH ×3 (06:43→22:25)
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
--- NOTE | 2016-11-27 08:46 | DRSVH ---
PROCEDURE: X-RAY CHEST ONE VIEW, PORTABLE ([id number]) INDICATIONS: CHEST PAIN TECHNIQUE: One view of the chest was acquired. COMPARISON: [facility], CR, XR CHEST 1VW (PORTABLE), 11/25/2016, 8:05. FINDINGS: Surgical changes and devices: None. Lungs and pleura: No pleural effusions or pneumothorax. Focal opacity in the left lung base is incre ased in size compared to prior examination. Mediastinum: Mediastinal contours appear normal. Heart size is normal. Bones and chest wall: No suspicious bony lesions. Overlying soft tissues appear unremarkable. IMPRESSION: Enlarging left basilar opacity suspicious for pneumonia. Dictated by: Osiris Goldstein MD, PhD on 11/27/2016 at 8:44 Approved by: Osiris Goldstein MD, PhD on 11/27/2016 at 8:44
--- NOTE | 2016-11-27 09:26 | NUR ---
PETEY: Verbal Consent
--- NOTE | 2016-11-27 11:06 | NUR ---
CP/BRADYWA Pt pain assessed at 05/26 after PRN morphine. CIWA score 7. Pt moaning loudly stating he had chest pain. Pt kept stating that he is not faking his pain and that he is not a narcotic seeker. This RN explained that the staff was treating him for his pain and were working to find the source of his pain. MD is aware of chest pain and is calling it "transient chest pain". Pt was administered 2 mg PRN morphine and 10mg Diazepam with the effect of the pt being able to sleep. LELA score 0, RR 11-13 Addendum: 11/27/16 at 1815 by LOREN GATES RN Afternoon assessment, CIWA 5. Pt denies chest pain, states pain in feet only.
--- NOTE | 2016-11-27 12:42 | PCM.PNMED ---
Subjective Date of Service Nov 27, 2016 Subjective Patient feels better. He is left-sided chest pain which increases if he presses on the chest or coughs or takes a deep breath. No hemoptysis. Serial ECGs have been unremarkable. Patient has had a cough recently. His flu swab was negative. He denies any dyspnea. Less anxiety and hallucinations today. No nausea vomiting or diarrhea. No abdominal pain. Exam Vital Signs Vital Sign - Last Date Time Temp Pulse Resp B/P Pulse Ox O2 Delivery O2 Flow Rate FiO2 11/27/16 11:31 36.2 79 16 112/79 99 Nasal Cannula 2.00 Intake and Output 11/26/16 11/26/16 11/27/16 Cumulative From/Thru 15:00 23:00 07:00 11/25/16 03:30 - 11/27/16 04:52 Intake Total 1419 ml 0 ml 6387 ml Output Total 1475 ml 800 ml 4525 ml Balance -56 ml -800 ml 1862 ml Intake Oral 0 ml 0 ml 0 ml IV Total 1419 ml 6387 ml Output Urine Total 1475 ml 800 ml 4525 ml Stool Total 0 ml # Voids 2 2 # Bowel Movements 0 0 Exam Alert oriented 3, fluent speech. Unkempt Anicteric sclerae Normal nose , pupils Neck is supple Lungs are clear, normal effort. Heart is regular, without murmur gallop or rub Abdomen is soft nondistended Extremities good pedal pulses. IVs and Medications Medications Reviewed: Medications were reviewed in detail Lab and Diagnostics Result Diagram: 11/27/1635411/27/16 0355 X-Rays, CTs and MRIs Chest x-ray is pending 12-lead ECG Twelve-lead EKG is pending Assessment & Plan 1. Acute alcohol withdrawal. POA. This continues to improve. The patient looks much better than the time of admission. Continue him per protocol. 2. Possible melena. The patient some hematocrit is relatively stable. No rectal bleeding here. He has not a PPI. He was actually intact which will be stopped today. Endoscopy was canceled yesterday because of chest pain. The chest pain really seems to be musculoskeletal. Nonetheless they are reluctant to scope him unless medically necessary or unless cardiology sees the patient. At this time there is no urgency we will continue to follow his clinical progress and to make a decision on whether or not he ultimately needs to be scoped next day or 2. 3. Left-sided chest pain, positional and increases with deep breathing. Normal ECGs 2 normal troponin. Doubt cardiac etiology. We will continue to follow clinically. 4. Lactic acidosis, POA. Improved. Continue with IV fluid resuscitation. 5. Severe volume depletion, POA. Plan is for fluid resuscitation 6. Possible aspiration pneumonia on an x-ray. POA. This is stable. Continue clindamycin. He has penicillin allergic. We will discontinue this is as soon as clinically feasible. No evidence of hypoxia. 6. Type II diabetes, chronic, present on admission We will place on subcutaneous regular insulin protocol, this is stable. 6. Schizophrenia, chronic, present on admission We will get case management and child welfare social worker consultations. The patient notes he does not take medications because these affect away he thinks and he does not like that. 7. DVT prophylaxis We will use SCDs and not place on subcutaneous anticoagulation given GI bleed Full code Pain Evaluation: Adequate Pain Control GI Prophylaxis: Proton Pump Inhibitor VTE Mechanical Devices: Intermittant Pneumatic CD Resuscitation Status: CPR: Attempt Resuscitation Time spent 25 minutes Chinedu Kelly MD Nov 27, 2016 12:42
--- NOTE | 2016-11-27 15:54 | NUR ---
NUTRITION ASSESSMENT Assess: 51 yo M w/ EtOH withdrawal and possible melena. Diet advanced to full liquids today. Pt is homeless. Pt states that he has a good appetite. He tells me that he has not been using his insulin lately and attributes his elevated A1c to that. Pt states he is familiar with the diabetic diet. PMHx: Alcoholic liver cirrhosis w/ hx of encephalopathy, Schizophrenia, DM 2, HLD, Hallucinations, Violent behavior w/ mcc time, Substance abuse, Thrombocytopenia, Leukopenia, Hyperammonemia, Gastritis. LABS: Cr 0.53, Glu 163, Ca 8.0, T-bili 1.4, Albumin 2.9, A1c 9.2 MEDICATIONS: Reviewed. Insulin, Zofran DIET: Full liquid, No PO recorded NUTRITION FOCUSED PHYSICAL ASSESSMENT: GI symptoms/stool: No BM reported Ervin: 16 Skin integrity: Blanchable redness Overall Appearance: Middle aged man resting in bed - no signs of wasting ANTHROPOMETRICS: Current Wt: 78.1 kg BMI: 27 kg/r3Zupna Wt: 78.1 kg IBW: 67.3 kgRecent wt changes: Wt stable ESTIMATED NEEDS: Calories: 2177-0592 kcal/d (25-30 kcal/kg/d) Protein: 80-115 g/d (1-1.5 g/kg/d) Fluids: 7098-2095 ml/d (25-30 ml/kg/d) NUTRITION DIAGNOSIS: 1) Altered nutrition related lab values related to type 2 diabetes as evidenced by A1c of 9.2. INTERVENTION: 1) Diabetic education provided. 2) Will monitor PO intake and add supplements as needed. MONITOR/EVALUATE: PO intake, Diet adv/nadege, Wt, Labs, Nutrition status, POC. Will follow per moderate nutrition risk guidelines.
[2016-11-27] MEDS: Pantoprazole 4 mg/mL 10 mL Inj IVPUSH SCH (16:45)
[2016-11-28] VITALS (11 sets, daily range): BP systolic 107–129; BP diastolic 68–80; PULSE 80–101; RESP 16–20; O2SAT 95–98
[2016-11-28] MEDS: 0.9% Sodium Chloride 1,000 ML IV SCH (01:22)
[2016-11-28] MEDS: Insulin Human REGular 300 Unit/3 mL Inj SUBQ SCH ×2 (02:37→07:52)
[2016-11-28 05:10] LABS: BASOPHILS % (AUTO) 0.7 % (0-3); EOSINOPHILS % (AUTO) 1.9 % (0-5); MONOCYTES % (AUTO) 11.5 % (4-12); Mean Corpuscular Hemoglobin 32.8 pg (27.0-35.0); Mean Corpuscular Volume 94.3 fL (81-100); NEUTROPHILS % (AUTO) 65.9 % (40-74); Platelet Count 95 bil/L (150-400)
--- NOTE | 2016-11-28 05:31 | NUR ---
GI/Shift Notation: Pt stable throughout the night; no signs of ETOH withdrawl. No s/s of bleeding. Pt has had no bowel movements and is tolerating a full liquid diet. Pt requiring Morphine 2 mg IV for B foot and BLE pain. NSR noted on the monitor in the 80-90s; no c/o chest pain.
[2016-11-28] MEDS: Clindamycin Inj 600 MG in IV Premix 1 EACH IV SCH (06:05)
[2016-11-28] MEDS: Pantoprazole 4 mg/mL 10 mL Inj IVPUSH SCH (07:43)
[2016-11-28] MEDS ORDERED: Pantoprazole 40 mg ER24 Tablet PO SCH (07:50)
--- NOTE | 2016-11-28 08:22 | PCM.PNSURG ---
Subjective Date of Service: Nov 28, 2016 Date of Service: Nov 28, 2016 Visit Information: Subjective: hb 13.2 today. no overt signs gi bleed. no abdominal pain, no chest pain. Postop General: No Complaints Objective Vital Sign- Last 8 Hours Date Time Temp Pulse Resp B/P Pulse Ox O2 Delivery O2 Flow Rate FiO2 11/28/16 08:00 Supplement Oxygen 11/28/16 07:39 36.8 92 120/79 98 Room Air 11/28/16 04:40 82 11/28/16 04:24 36.6 80 18 121/80 98 Room Air 11/28/16 04:10 86 11/28/16 00:50 92 Intake and Output- Last 8 Hour 11/28/16 Cumulative From/Thru 07:00 11/25/16 03:30 - 11/28/16 06:45 Intake Total 2234 ml 39795 ml Output Total 1850 ml 7175 ml Balance 384 ml 3167 ml Intake Oral 1200 ml 1720 ml IV Total 1034 ml 8622 ml Output Urine Total 1850 ml 7175 ml Stool Total 0 ml # Voids 2 6 # Bowel Movements 0 General: Oriented X3 Neck: Supple Lungs: Clear to Auscultation Heart: Exam Unremarkable Abdomen: Benign, Soft, Non-tender, Non-distended, Normoactive bowel tones Extremities: Distal Pulses Palpable Result Diagram: 11/28/1642911/28/16 043 Assessment & Plan Impression 51-year-old male with history diabetes, schizophrenia, history of duodenal ulcer in the bulb, esophagitis and esophageal ulcer along with portal hypertensive gastropathy on prior upper endoscopy in February 2015, history of violent behavior, substance abuse in the past, neuropathy in the legs, history multiple gallstones in the gallbladder on ultrasound November 10, 2016, history of hepatic cirrhosis with portal hypertension seen on MRCP of the abdomen July 01, 2016, who presents for consultation for hematemesis x1 day, melenic stools, and diffuse abdominal pain. Differential diagnosis includes Ria- Ramírez tear versus peptic ulcer disease versus gastritis versus esophagitis versus duodenitis. 11/27/16- still complains of chest pain and abdominal pain. hb 12. no overt signs gi bleed. 11/29/16- hb 13.2. no overt signs gi bleed. no chest pain. no abdominal pain. RECOMMENDATIONS: 1. protonix 40mg po bid 2. carafate 1g po qid 3. Pt wishes to hold off on egd. hb stable. no overt signs gi bleed. 4. OK to d/c home today with f/u in gi clinic as outpatient 5. cont xifaxan 550mg po bid for hx encephalopathy. will sign off. Problems: Resuscitation Status: CPR: Attempt Resuscitation Edmund Almanzar MD Nov 28, 2016 08:22
[2016-11-28] MEDS ORDERED: Glucose 40% Oral Gel 15 Gm Tube PO PRN (12:15)
--- NOTE | 2016-11-28 12:26 | PCM.PNMED ---
Subjective Date of Service Nov 28, 2016 Subjective 51-year-old male with homelessness, alcohol dependence and type II diabetic diabetes presents with alcohol withdrawal, GI bleeding and frostbite. Denies anxiety or nervousness. No melena or diarrhea. Endorses pain of both legs from knees to feet. Worse in ankles. States that this is dysesthetic pain similar to his previous neuropathy. His first toes are necrotic bilaterally although this does not seem to be his major source of pain as sensation is somewhat diminished. Exam Vital Signs Vital Sign - Last Date Time Temp Pulse Resp B/P Pulse Ox O2 Delivery O2 Flow Rate FiO2 11/28/16 08:00 Supplement Oxygen 11/28/16 08:00 88 11/28/16 07:39 36.8 120/79 98 11/28/16 04:24 18 11/27/16 16:03 2.00 Intake and Output 11/27/16 11/27/16 11/28/16 Cumulative From/Thru 15:00 23:00 07:00 11/25/16 03:30 - 11/28/16 06:45 Intake Total 59 ml 1662 ml 2234 ml 42776 ml Output Total 800 ml 1850 ml 7175 ml Balance 59 ml 862 ml 384 ml 3167 ml Intake Oral 520 ml 1200 ml 1720 ml IV Total 59 ml 1142 ml 1034 ml 8622 ml Output Urine Total 800 ml 1850 ml 7175 ml Stool Total 0 ml # Voids 2 2 6 # Bowel Movements 0 Exam General: Disheveled appearing, no acute distress HEENT: sclerae anicteric, oral mucosa moist, dentition poor Neck: no JVD Chest: clear to auscultation Cardiac: Regular, S1S2, no murmur Abdomen: BS normal, non-tender Extremities: No edema; pigmentation changes bilaterally, ankles appeared dusky color, forefeet are erythematous, first toes show 1/3 black eschar with no wet ulceration Neuro: A&O, cranial nerves symmetric, motor strength 5/5, coordination normal IVs and Medications Medications Reviewed: Medications were reviewed in detail Lab and Diagnostics Result Diagram: 11/28/1642911/28/16 043 X-Rays, CTs and MRIs Chest x-ray is pending 12-lead ECG Twelve-lead EKG is pending Assessment & Plan Acute, or high-risk problems: #. Acute alcohol withdrawal. POA. This continues to improve. The patient looks much better than the time of admission. - Wean off CIWA protocol #. Possible melena. The patient some hematocrit is relatively stable. No rectal bleeding here. Endoscopy is deferred by patient request. No further GI bleeding observed inpatient. - Switched to oral high dose proton pump inhibitor - Daily CBC #. Possible aspiration pneumonia on an x-ray. POA. This is stable. He has penicillin allergic. We will discontinue this is as soon as clinically feasible. No evidence of hypoxia. - discontinue clindamycin after 5 days #. Left-sided chest pain, positional and increases with deep breathing. Normal ECGs 2 normal troponin. Diagnosis is noncardiac chest pain. - We will follow this clinically. #. Frostbite. Acute. - Podiatry consult Stable and are resolved problems: #. Lactic acidosis, POA. Improved. Continue with IV fluid resuscitation. #. Severe volume depletion, POA. Plan is for fluid resuscitation #. Type II diabetes, chronic, present on admission - Changed to basal bolus regimen. #. Schizophrenia, chronic, present on admission. Homelessness We will get case management and social media campaign manager consultations. The patient notes he does not take medications because these affect away he thinks and he does not like that. #. DVT prophylaxis. Patient will be nonambulatory due to his foot pain. - Seems clinically stable to resume subcutaneous heparin. Full code Pain Evaluation: Pain not Controlled GI Prophylaxis: Proton Pump Inhibitor VTE Mechanical Devices: Intermittant Pneumatic CD Resuscitation Status: CPR: Attempt Resuscitation Time spent 35 minutes Jarret Jorge MD Nov 28, 2016 12:26
--- NOTE | 2016-11-28 14:14 | PCM.CHPPOD ---
Subjective Date of service Nov 28, 2016 History of Present Illness 51-year-old neuropathic diabetic male with history of severe alcoholism is evaluated resting comfortably in bed for bilateral great toe blisters. Patient is well known to the podiatry service at scheduled regional clinics with history of multiple bilateral lower extremity ulcerations and significant noncompliance with outpatient therapy. Patient states that he has been drinking recently and he does not remember the last time he had his feet examined. Allergy Allergies: Coded Allergies: Penicillins (Verified Allergy, Severe, Anaphylaxis, 11/25/16) enoxaparin (Verified Allergy, Intermediate, aggitation, 10/06/16) Tetanus Vaccines and Toxoid (Verified Allergy, Unknown, Shortness of Breath, 11/25/16) Medications Ascorbic Acid (Vitamin C) 1,000 Mg Tab.chew 1,000 MG PO DAILY Gabapentin (Gabapentin) 600 Mg Tablet 600 MG PO BID Glipizide (Glipizide) 5 Mg Tablet 5 MG PO BIDWM Metformin (Metformin) 500 Mg Tablet 1,000 MG PO BID Milk Thistle Seed Extract (Milk Thistle) 140 Mg Capsule Unknown Dose PO DAILY Turmeric Root Extract (Turmeric) 500 Mg Capsule Unknown Dose PO DAILY Vit B Comp/C/FA/Iron/Vit E (Vitamin B Complex Tablet) 1 Each Tablet 1 EACH PO DAILY hydrOXYzine Hcl (HydrOXYzine Hcl) 25 Mg Tablet 25 MG PO TID PRN PRN For Itching Past Medical History Surgeries: Yes (vasectomy) Medical History: Surgical History: Social History Hx Alcohol Use: Yes Alcoholic Drinks Per Day: "Only when I can't take the pain anymore" Hx Substance Use: No Hx Tobacco Use: Yes Smoking Status: Current Every Day Smoker Podiatry Consult Exam Vital Signs Vital Sign - Last Date Time Temp Pulse Resp B/P Pulse Ox O2 Delivery O2 Flow Rate FiO2 11/28/16 12:21 36.4 101 16 115/78 96 Room Air 11/27/16 16:03 2.00 Intake and Output 11/27/16 11/27/16 11/28/16 Cumulative From/Thru 15:00 23:00 07:00 11/25/16 03:30 - 11/28/16 06:45 Intake Total 59 ml 1662 ml 2234 ml 28012 ml Output Total 800 ml 1850 ml 7175 ml Balance 59 ml 862 ml 384 ml 3167 ml Intake Oral 520 ml 1200 ml 1720 ml IV Total 59 ml 1142 ml 1034 ml 8622 ml Output Urine Total 800 ml 1850 ml 7175 ml Stool Total 0 ml # Voids 2 2 6 # Bowel Movements 0 Result Diagram: 11/28/1642911/28/16429 Lab Test 11/25/16 03:50 11/25/16 04:19 11/25/16 07:00 11/25/16 23:25 Hemoglobin A1c 9.2% (4.8-5.6) Phosphorus Level 3.5mg/dL (2.5-4.9) Magnesium Level 2.4mg/dL (1.6-2.6) Total Creatine Kinase 65U/L (21-232) Lipase 38U/L (13-60) Alcohol, Quantitative 288mg/dL (0-10) Prothrombin Time 12.5sec (8.1-12.5) Prothromb Time International Ratio 1.16ratio Activated Partial Thromboplast Time 25.0sec (22.8-33.0) Ammonia 92ug/dL (18-53) Vitamin B12 Level 903pg/mL (211-946) Urine Color Yellow (YELLOW) Urine Appearance Clear (CLEAR,HAZY) Urine pH 6.5 (5.0-8.0) Urine Specific [place] 1.020 (1.003-1.035) Urine Protein Negativemg/dL (NEG,TRACE) Urine Glucose (UA) 500mg/dL (NEGATIVE) Urine Ketones 15mg/dL (NEGATIVE) Urine Occult Blood Negative (NEGATIVE) Urine Nitrite Negative (NEGATIVE) Urine Bilirubin Negative (NEGATIVE) Urine Urobilinogen Normalmg/dL (NORMAL) Urine Leukocyte Esterase Negative (NEGATIVE) Urine RBC 0-2/hpf (0-2) Urine WBC 0-5/hpf (0-5) Urine Epithelial Cells Few/hpf (NONE-MOD) Urine Crystals None seen (NONE SEEN) Urine Bacteria Few/hpf (NONE-FEW) Urine Hyaline Casts None/lpf (NONE) Urine Granular Casts None seen (NONE SEEN) Urine Waxy Casts None seen (NONE SEEN) Urine Red Blood Cell Casts None seen (NONE SEEN) Urine White Blood Cell Casts None seen (NONE SEEN) Urine Mucus None seen (None Seen) Urine Trichomonas None seen (NONE SEEN) Urine Yeast None (NONE SEEN) Urinalysis Comment None Urine Culture Reflexed Not indicated Urine Opiates Screen Negative Urine Methadone Screen Negative Urine Barbiturates Screen Negative Urine Amphetamines Screen Negative Urine Benzodiazepines Screen Negative Urine Cocaine Metabolite Screen Negative Urine Cannabinoids Screen Negative Test 11/26/16 15:58 11/27/16 10:50 11/28/16 04:30 Lactic Acid Level 1.1mmol/L (0.4-2.0) Troponin T < 0.010ug/L (0.0-0.011) White Blood Count 5.9th/mm3 (3.8-10.1) Red Blood Count 4.02mil/mm3 (4.40-5.80) Hemoglobin 13.2g/dL (13.8-17.2) Hematocrit 37.9% (41.0-50.0) Mean Corpuscular Volume 94.3fL (81-100) Mean Corpuscular Hemoglobin 32.8pg (27.0-35.0) Mean Corpuscular Hemoglobin Concent 34.8% (32.0-37.0) Red Cell Distribution Width 13.8% (12.3-15.4) Platelet Count 95bil/L (150-400) Neutrophils (%) (Auto) 65.9% (40-74) Lymphocytes (%) (Auto) 19.2% (14-46) Monocytes (%) (Auto) 11.5% (4-12) Eosinophils (%) (Auto) 1.9% (0-5) Basophils (%) (Auto) 0.7% (0-3) Sodium Level 136mEq/L (134-144) Potassium Level 3.6mEq/L (3.5-5.2) Chloride Level 98mEq/L (97-108) Carbon Dioxide Level 23mmol/L (18-29) Blood Urea Nitrogen 6mg/dL (6-24) Creatinine 0.51mg/dL (0.76-1.27) Estimat Glomerular Filtration Rate 183mL/min (>59) Glucose Level 180mg/dL (60-99) Calcium Level 8.3mg/dL (8.5-10.1) Total Bilirubin 0.9mg/dL (0.0-1.2) Aspartate Amino Transf (AST/SGOT) 31U/L (0-50) Alanine Aminotransferase (ALT/SGPT) 17U/L (0-44) Alkaline Phosphatase 87U/L (25-150) Total Protein 7.0g/dL (6.4-8.4) Albumin 3.0g/dL (3.4-5.0) Exam General: Oriented X3 Neck: Supple Lungs: Clear to Auscultation Cardiac: Exam Unremarkable Lower Extremity Pulses: Palpable: Left Dorsalis Pedis Left Posterior Tibal Right Dorsalis Pedis Right Posterior Tibal Podiatry WOUND : Wound Location/Description Superficial hematogenous bulla bilateral lower plantar hallux. Left hematogenous bulla measures 1.4 cm x 0.5 cm and is superficial without extension to deep tissue. Right hematogenous bulla measures 1 cm x 0.6 cm and is superficial without extension into deep tissue. There is no surrounding erythema and no malodor no signs of acute infection. No other open ulcerations are present. Severely diminished protective sensation Assessment & Plan Assessment Bilateral hallux hematogenous bulla without extension to deep tissue Problems: Pain Management: Detailed evaluation today reveals no open deep full-thickness ulcerations. This patient did have a lateral hematogenous bolas which were sharply debrided today there is no sign of acute infection. No antibiotics are necessary for treatment of bilateral great toe wounds today. Bilateral great toe dressings were applied consisting of Betadine sterile gauze and tape. These dressings are to be changed every 48-72 hours while admitted by the nursing staff. No immediate surgical intervention is necessary this patient is to follow-up on an outpatient basis within 3-5 days of discharge. No further podiatric needs at this time and podiatry will sign off of care. Please reconsult with any further questions or concerns regarding this patient's care. VTE Mechanical Devices: Intermittant Pneumatic CD Turner Roberson DPM Nov 28, 2016 14:13
--- NOTE | 2016-11-28 14:28 | NUR ---
Social Work: Chemical Dependency Evaluation Current Situation: 51 year old male admitted for alcohol dependence. Pt discussed in morning rounds. Advancing diet today and anticipated to discharge in 1-2 days. Pt lives in a tent in [place]. Pt also with diagnosis of schizophrenia. Chemical Dependency History: Pt states he has been drinking since the year 1999. Pt states he typically drinks everyday but has been able to remain sober for 60 days at a time. Pt verbalizes that he primarily drinks to control pain. Pt states he has had seizures in the past when has has gone without alcohol. Pt also reports doing inpatient treatment at [facility] on multiple occasions. Pt has no interest in going to [facility] at this time. Current Mental Status: SUPERVISOR CAPACITOR PROCESSING met with pt at bedside. Pt is alert and oriented x4. Pt denies having any current a/v hallucinations but reports having them in the past. Pt denies any suicidal or homicidal ideation, current or in the past. Pt's thought process is linear and goal oriented, stating he is planning to move to [place] and get an apartment. Natural Supports: Pt states he is open for services at [facility]. His registered nurse hh case manager is Lea Rodgers [phone]. He states he has an upcoming appointment with her but cannot recall when exactly. Perceptions of Use: Pt has good insight into his drinking habits and the impact it is having on his health. Suicide Risk: Pt denies any current or past suicidal, homicidal ideation. Pt does have baseline schizophrenia and is enrolled in [facility] for counseling. Recommendations for discharge: Pt to likely discharge back to homelessness. Pt states that his plan is to use his 30 day bus pass to get to [place] where he has several prospective housing opportunities. Pt provided with multiple items of clothing and personal hygiene items as he states most of his clothing is wet. Pt to follow up with his CM at [facility]; pt not currently Suicidal/Homicidal. Pt has been on bedrest during admission. Pt to demonstrate safe ambulation prior to d/c. DEMAR Hernandez
--- NOTE | 2016-11-28 14:58 | NUR ---
Pain/Shift Note Pt continues to c/o pain at 8/10 in his bilateral lower extremities. PRN IV 2mg Morphine given with a reduction in pain to 6-7/10. Pt seen by podiatry today. Dressings of betadine gauze and tape applied to both great toes. Dressings to be changed q48-72 hours. No S/S of ETOH withdrawal, CIWA score 2 for anxiety. Tele DC'd. Pt has been continent of urine and stool during this shift. Diet advanced to ADA, pt tolerating food well with no complaints of N/V. SAO2 98% on RA with no complaints of SOB.
--- NOTE | 2016-11-28 15:03 | NUR ---
Social Work: Initial Assessment D: Per EMR Review, pt is a 51 year old male admitted for Alcohol Dependence. Pt is Medicare with [facility] supplement. PCP Is Kaela Daniel MD. No NOK identified by pt. Readmit score is high, 6/8. Advanced directives information provided to pt by BUSINESS PLANNING ANALYST. BUSINESS PLANNING ANALYST met with pt at bedside to complete initial assessment and CD evaluation. See separate CD assessment note. Pt lives in [place] in a tent. Pt states that he uses no DME and is I at baseline. Pt does have a diagnosis of schizophrenia and has in the past reported a/v hallucinations. Pt states his plan is to get an apartment in [place] with money he has saved while he was homeless. Pt has been on bedrest and will need to demonstrate safe ambulation prior to d/c. A: Pt who is I at baseline and uses [facility] for transport. P: Anticipate pt to discharge back to homelessness pending safe demonstration of ambulation; BUSINESS PLANNING ANALYST to continue to follow. DEMAR Hernandez Addendum: 11/28/16 at 1510 by JAMESON STINSON Amended: Links added.
[2016-11-28] MEDS: HYDROcodone-APAP 5-325 mg Tablet PO PRN ×2 (15:34→20:43)
[2016-11-28] MEDS: Pantoprazole 40 mg ER24 Tablet PO SCH (15:34)
[2016-11-28] MEDS: Insulin LISPRO 300 Unit/3 mL Inj SUBQ SCH ×2 (17:39→20:47)
[2016-11-28] MEDS: Heparin 5,000 Unit/mL Inj SUBQ SCH (20:47)
[2016-11-28] MEDS ORDERED: Insulin GLARgine 100 Unit/mL Syringe SUBQ SCH (21:00)
[2016-11-29 03:36] VITALS: BP 113/73; PULSE 97; RESP 16
[2016-11-29] MEDS: HYDROcodone-APAP 5-325 mg Tablet PO PRN ×3 (03:59→14:23)
[2016-11-29 05:39] LABS: BASOPHILS % (AUTO) 0.9 % (0-3); EOSINOPHILS % (AUTO) 2.5 % (0-5); MONOCYTES % (AUTO) 13.8 % (4-12); Mean Corpuscular Hemoglobin 32.3 pg (27.0-35.0); Mean Corpuscular Volume 94.3 fL (81-100); NEUTROPHILS % (AUTO) 59.1 % (40-74); Platelet Count 81 bil/L (150-400)
--- NOTE | 2016-11-29 07:45 | NUR ---
Pain Pt C/O pain in feet 06/26 x2 this shift administered PRN 1 tab Vicodin x2 this shift and effective. VSS and pt is no longer on tele.
--- NOTE | 2016-11-29 09:47 | NUR ---
[facility] Signed
[2016-11-29] MEDS: Insulin LISPRO 300 Unit/3 mL Inj SUBQ SCH ×2 (10:07→13:02)
[2016-11-29] MEDS: Heparin 5,000 Unit/mL Inj SUBQ SCH (10:07)
[2016-11-29] MEDS: Pantoprazole 40 mg ER24 Tablet PO SCH (10:11)
[2016-11-29 10:23] VITALS: BP 105/72; PULSE 94; RESP 20; O2SAT 99
[2016-11-29] MEDS ORDERED: OMEP40CA36 PO (11:34)
--- NOTE | 2016-11-29 11:39 | PCM.DIMED ---
Discharge Instructions Date of Service Nov 29, 2016 Dates of Hospitalization Nov 25, 2016 at 06:32 Discharge Diagnosis Discharge Diagnosis alcohol withdrawal; encephalopathy with hyperammonemia; possible GI bleeding; frostbite of toes Medication Instructions He has been given a new prescription for omeprazole which he should take twice a day to prevent GI bleeding. Patient Instructions Follow-up in wound care clinic in 3-5 days. You are strongly encouraged to reduce or eliminate alcohol intake which is likely damaging your liver and causing GI bleeding. You were admitted for confusion which is due to alcoholic liver damage. He has been given a prescription for rifaximin which will help prevent further episodes of hepatic encephalopathy. You should be aware of dark black or maroon-colored stools. If you experience further problems like this you should present to the emergency department or contact the gastroenterology clinic at [facility] for a follow-up appointment. Check your feet carefully. Wear socks and good footwear regularly. Avoid frostbite. Follow-up plan Please make appointment in wound care clinic for upcoming week. Please give patient contact information for the gastroenterology clinic to call for an appointment in 4 weeks. Follow-up Provider: Kaela Daniel MD Follow-up with PCP in: 1 week Provider: Edmund Almanzar MD Follow-up in: 4 weeks Mid-level Provider (F9): [facility] Follow-up with Mid-level in: 1 week Jarret Jorge MD Nov 29, 2016 11:39
[2016-11-29] MEDS ORDERED: RIFA550T3 PO (11:40)
--- NOTE | 2016-11-29 14:32 | NUR ---
Discharge Pt discharged to bus station to be transported home by bus. Pt states he has a bus pass. Pt IV dc'd intact. Pt discharge instructions, follow up appointments, and new medications were reviewed. All Pt questions were answered and patient verbalized understanding. Pt's belongings were gathered and sent with him. Pt was accompanied by ELECTRICAL TECHNICIAN to bus stop.
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
--- NOTE | 2016-12-02 16:58 | NUR ---
Diabetes Discharge follow up phone call attempt: No picker/puller. Message left requesting call back.
== END 2016-11-29 14:35 | disposition home or self-care (01) | DRG 896 ==
LOC: EDUNIT# 03:28 → SED 03:28 → EDBD 03:28 → OSC 06:32 → PCC 14:37 → CCU 14:45 → PCC 11-26 09:38
PROVIDERS: ADMIT Specialist; ATTEND Specialist
DX: F10.239 Alcohol dependence with withdrawal, unspecified (principal); J69.0 Pneumonitis due to inhalation of food and vomit; G93.40 Encephalopathy, unspecified; K92.1 Melena; E87.2 Acidosis; E72.20 Disorder of urea cycle metabolism, unspecified; T33.839A Superficial frostbite of unspecified toe(s), initial encounter; F10.220 Alcohol dependence with intoxication, uncomplicated; Y90.8 Blood alcohol level of 240 mg/100 ml or more; E11.9 Type 2 diabetes mellitus without complications; E86.9 Volume depletion, unspecified; R23.8 Other skin changes; F20.9 Schizophrenia, unspecified; F17.210 Nicotine dependence, cigarettes, uncomplicated; Z59.0 Homelessness; Z79.84 Long term (current) use of oral hypoglycemic drugs

== ENCOUNTER 2017-01-01 10:46 | Inpatient (IN) | payer MEDICARE, MEDICAID ==
[~2017-01-01] VITALS: Ht 170.2 cm; Wt 81.1 kg
[~2017-01-01 10:46] MED LIST changes: +ASCO100089 PO; -D-ME118S8 PO; -HYDR-3797 PO; -KEP500TA PO; -MILK THISTLE; +MILK1CAP3 PO; +OMEP40CA36 PO; +RIFA550T3 PO; +TURM500C7 PO; -VIT BCOMPLEX; +VIT1TABL83 PO; -Vit C; -[UNRECOGNIZED DRUG - OTHER]
[2017-01-01 10:52] VITALS: BP 123/86; PULSE 84; RESP 16; O2SAT 99
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
[2017-01-01] MEDS ORDERED: Vancomycin Dose per Pharmacist XX ONE (11:35)
[2017-01-01 11:55] LABS: BASOPHILS % (AUTO) 0.8 % (0-3); EOSINOPHILS % (AUTO) 5.3 % (0-5); MONOCYTES % (AUTO) 15.3 % (4-12); Mean Corpuscular Hemoglobin 31.3 pg (27.0-35.0); Mean Corpuscular Volume 93.5 fL (81-100); Platelet Count 157 bil/L (150-400)
[2017-01-01] MEDS: metroNIDAZOLE Inj 1,000 MG in IV Premix 1 EACH IV ONE ×2 (11:55→13:00)
[2017-01-01] MEDS ORDERED: Cefepime Inj 2 GM in IV Premix 1 EACH IV ONE (11:55)
[2017-01-01] MEDS ORDERED: Vancomycin Inj 1,750 MG in 0.9% Sodium Chloride 500 ML IV ONE (12:00)
[2017-01-01] MEDS ORDERED: Cefepime Inj 2,000 MG in Dextrose 5% Minibag Plus 50 ML IV ONE (12:03)
[2017-01-01] MEDS ORDERED: Bacitracin Ointment Packet TOPICAL ONE (12:10)
[2017-01-01 12:15] LABS: INR 1.06 ratio
[2017-01-01 12:31] LABS: Ammonia 96 ug/dL (18-53)
[2017-01-01] MEDS ORDERED: KEPP250T PO (13:58)
[2017-01-01] MEDS ORDERED: Alum-Mag Hydrox-Simeth 30 mL Suspension PO PRN (14:10)
[2017-01-01] MEDS ORDERED: Polyethylene Glycol (PEG) 17 Gm Powder PO PRN (14:10)
[2017-01-01 15:21] VITALS: BP 121/78; PULSE 73; RESP 16; O2SAT 98
[2017-01-01 15:48] VITALS: BP 127/80; PULSE 68; RESP 16; O2SAT 99
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
[2017-01-01] MEDS ORDERED: Glucose 40% Oral Gel 15 Gm Tube PO PRN (16:40)
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
[2017-01-01] MEDS: Insulin LISPRO 300 Unit/3 mL Inj SUBQ SCH ×2 (17:30→22:24)
--- NOTE | 2017-01-01 18:43 | NUR ---
Admission Pt admitted to [facility] unit, 1018, from ED at 1540 via gurney; transferred to bed. A&Ox3, schizophrenic - pleasant but will state having visions and will carry on conversation with imaginary people, CRISTIAN, c/o zenaida foot pain - Dr. Garduno present and debrided - dressing CDI, IV infusing Vanco then SL, Pt belongings in room. Care continues.
[2017-01-01 19:15] VITALS: BP 145/81; PULSE 79; RESP 18; O2SAT 99
[2017-01-01] MEDS ORDERED: 0.9% Sodium Chloride 250 ML ONE (20:43)
[2017-01-01] MEDS: Cefepime Inj 1,000 MG in Dextrose 5% Minibag Plus 50 ML IV SCH (20:59)
[2017-01-02] VITALS (11 sets, daily range): BP systolic 94–116; BP diastolic 54–76; PULSE 65–79; RESP 8–20; O2SAT 95–100
[2017-01-02] MEDS: Cefepime Inj 1,000 MG in Dextrose 5% Minibag Plus 50 ML IV SCH ×3 (04:57→22:45)
[2017-01-02 06:51] LABS: BASOPHILS % (AUTO) 1.1 % (0-3); EOSINOPHILS % (AUTO) 7.4 % (0-5); MONOCYTES % (AUTO) 15.7 % (4-12); Mean Corpuscular Hemoglobin 30.9 pg (27.0-35.0); Mean Corpuscular Volume 93.1 fL (81-100); NEUTROPHILS % (AUTO) 53.2 % (40-74); Platelet Count 170 bil/L (150-400)
[2017-01-02] MEDS ORDERED: fentaNYL-PF 50 mCg/mL 2 mL Inj ONE (08:12)
[2017-01-02] MEDS ORDERED: Propofol 10,000 mCg/mL 20 mL Inj ONE (08:12)
[2017-01-02] MEDS: Multivit-Miner-Folic Acid-Iron Tablet PO SCH (08:45)
[2017-01-02] MEDS: Ascorbic Acid 500 mg Tablet PO SCH (08:45)
[2017-01-02] MEDS: Insulin LISPRO 300 Unit/3 mL Inj SUBQ SCH ×4 (08:45→22:00)
[2017-01-02] MEDS ORDERED: 0.9% Sodium Chloride 250 ML ONE (13:14)
--- NOTE | 2017-01-02 13:48 | NUR ---
P: Pt scheduled for surgery 1700. I: AM PO medications given prior to NPO status. E: BSG checked 2 hrs PC to monitor preop.
--- NOTE | 2017-01-02 14:29 | PCM.PNMED ---
Subjective Date of Service Jan 02, 2017 Subjective s/p bedside debridement of left toe. Bone Probe consistent with osteomyelitis. he will go for amputation today. Afebrile Exam Vital Signs Vital Sign - Last Date Time Temp Pulse Resp B/P Pulse Ox O2 Delivery O2 Flow Rate FiO2 01/02/17 12:55 36.6 77 16 106/62 95 Room Air Intake and Output 01/01/17 01/01/17 01/02/17 Cumulative From/Thru 15:00 23:00 07:00 01/01/17 10:52 - 01/02/17 06:28 Intake Total 925 ml 800 ml 1725 ml Output Total 1025 ml 2195 ml 3220 ml Balance -100 ml -1395 ml -1495 ml Intake Oral 400 ml 800 ml 1200 ml IV Total 525 ml 525 ml Output Urine Total 1025 ml 2195 ml 3220 ml # Bowel Movements 0 0 Exam Gen. patient is lying comfortably in hospital bed HEENT: Head is normocephalic atraumatic, Pupils equal and reactive, extraocular movements intact, Lungs clear to auscultation bilaterally Heart regular rate and rhythm without murmurs gallops or rubs Abdomen soft nontender without hepatosplenomegaly Extremities left foot swollen ,erythematous and tender ,from left toe to midfoot dorsally,ulcer at left toe Psych alert and oriented to person place and time Neuro cranial nerves II through XII are grossly intact Lymph: There is no lymphadenopathy appreciated in the cervical supra infraclavicular regions : no kelly IVs and Medications Medications Reviewed: Medications were reviewed in detail Lab and Diagnostics Result Diagram: 01/02/17 0610 01/02/17 0610 X-Rays, CTs and MRIs XR foot IMPRESSION: 1. Osteoarthritis. 2. Chronic erosion involving the 1st digit. 3. No acute fracture nor acute osseous lesion. If symptoms and/or clinical suspicion for pathology persist, further assessment with repeat, or advanced imaging (e.g., CT, MRI, or bone scan) may be helpful for further assessment. Dictated by: Ann Dhillon M.D. on 01/01/2017 at 10:12 Assessment & Plan Nigel is a 51-year-old gentleman on his past medical history of type II diabetes , history of seizure disorder, schizophrenia, hyperlipidemia, history of substance and alcohol abuse was sent from urgent care due to left foot painful swelling and redness of 3 days. # Osteomyelitis distal phalanx left hallux, cellulitis left foot/Diabetic foot infection,acute,poa -s/p bedside debridement of left toe 01/01 . Bone Probe consistent with osteomyelitis. he will go for amputation today. -wound culture growing Group B Strept and staph.Blood culture NGTD -on Cefepime, Flagyl and vancomycin ,ID consulted -Podiatry consulted -pain control with morphine # type 2 Dm,chronic -Continue glipizide and metformin -Insulin sliding scale -a1c ordered #History of seizure disorder, chronic -Continue Keppra # History of alcoholic hepatitis with hyperammonia -Ammonia 96 -Lactulose as needed #History of schizophrenia -Follows at [facility] #History of alcohol -says he is sober for a month now -watch out for withdrawal -alcohol level negative dvt ppx scd Full code Discharge in 2- 3 days Pain Evaluation: Adequate Pain Control Miguel Ángel Ndiaye MD Jan 02, 2017 14:29
[2017-01-02] MEDS ORDERED: Vancomycin Inj 1,750 MG in 0.9% Sodium Chloride 500 ML IV ONE (14:30)
--- NOTE | 2017-01-02 15:06 | NUR ---
spiritual care: pt request Pt was very kind and open hearted. Pt stated that he was schizophrenic and wanted to share with me his thoughts on spirituality. He shared a colorful and unconventional way of looking at the spiritual/physical world. Pt seems to be able to decipher when he sees something others do not but was very grateful to have someone listen to his experiences and insights. Offered a blessing before leaving the room. Spiritual care will continue to follow as needed.
--- NOTE | 2017-01-02 15:06 | CONS ---
[address] [address] CONSULTATION REPORT PATIENT: ANATOLIY ARMAS : 1965 MR#: [id number] ADMIT: 01/01/2017 JOB ID: [id number] DATE OF SERVICE: 01/02/2017 INFECTIOUS DISEASE CONSULTATION: I thank Dr. Ndiaye for this consult. REASON FOR CONSULTATION: Left great toe osteomyelitis, chronic. INTERVAL HISTORY: The patient is an unfortunate 51-year-old gentleman I know from multiple prior admissions. He has a wide variety of medical and social problems. Until recently he lived in a tent in the [facility] near [place], [place] and rarely had access to running water or any way to change his shoes and socks. This has led to innumerable foot and toe infections over the years. More recently the patient says he has moved into [facility] and now has a roof over his head and is able to take better care of himself. He has also been able to quit drinking since he now lives in a place where that is prohibited. Unfortunately, the patient's toe problems have not ended and he notes that his left great toe, which has been a chronic problem, became much more red and swollen over the past several days, which led to his evaluation and admission yesterday. This was associated he thinks with some subjective fever and maybe some chills. He has had ulcers on both great toes going back months, or perhaps even years, and I have seen him for some of these admissions, but in general we been able to keep his great toes attached through debridements and long-acting IV antibiotics such as dalbavancin. The patient has tended not to do well with oral antibiotics and obviously has not been a candidate for a PICC line as he lived in a tent in the [facility] and has not consented to stay anywhere else to convalesce from these toe infections. In any event, during his evaluation here yesterday by Dr. Garduno of Podiatry, it was noted that his left great toe was really deformed with osteomyelitis. X-ray showed chronic erosion and Dr. Garduno was able to easily probe to bone and has recommended that the left great toe be amputated. Cultures from it are growing a multiplicity of gram-positive organisms and I am asked to comment on appropriate antibiotics and management in this situation. The patient tells me that his right great toe still has an ulcer on the underside, or the plantar side, but it has not been as problematic as the left great toe, and that he has been babying it along with topical antibiotics and careful attention to personal hygiene, and that the right great toe of the right great toe seems actually improved even as the left great toe has deteriorated. He denies other constitutional symptoms other than the subjective fevers from a couple days ago. He has no pulmonary or GI symptoms of note. He does note that he has a rather severe peripheral neuropathy in both feet and that he continues to smoke cigarettes though he would like to quit. PAST MEDICAL HISTORY: 1. Alcoholic liver disease with underlying cirrhosis, portal gastropathy, and thrombocytopenia, with episodes of hepatic encephalopathy. 2. Alcoholism, in remission x30 days. 3. Diabetes mellitus. 4. Peripheral neuropathy secondary to diabetes. 5. Prolonged QT interval. 6. Schizophrenia. SOCIAL HISTORY: The patient has been living in the [facility] for a month. In that capacity, of course, he has not been drinking nor has he been using cocaine. Up until about a month ago, though, he was a binge drinker. He relates that he last used cocaine many years ago. He continues to be an avid cigarette smoker but is reportedly trying to cut back. FAMILY HISTORY: Negative for tuberculosis in any of his first-degree relatives. REVIEW OF SYSTEMS: Was done. The patient states he has no headache. He has noticed a bit of blurriness in his vision and he plans to seek attention for that. No sore throat or trouble swallowing. No cough or shortness of breath. No chest pain. No nausea, vomiting, diarrhea, or dysuria. He has not had any problems with his upper extremities or joints. No problems with the hips or knees. He basically relates that his problem was related to his numb feet and the infections he gets on his great toes.Remainder of ROS negative PHYSICAL EXAMINATION: Reveals an afebrile gentleman, as he has been afebrile throughout the duration of this two day admission. Temp is currently 36.6, pulse 77, respiratory rate 16, blood pressure 106/62. He is saturating well on room air. Examination of the mental status reveals he is clear, calm, and collected today, and is actually the best I have ever seen him in terms of comparison to prior admissions. He is alert and oriented, has plans for the future, and is looking forward to getting better health as he avoids alcohol and gets on with his life. His head is without trauma. His eyes without scleral icterus or conjunctivitis. Oral cavity without thrush or pharyngitis. Neck is supple and without adenopathy. Lungs quite clear posteriorly. Cardiac tones regular rate and rhythm, without significant murmur. Abdomen without ascites or focal tenderness. I do not appreciate any hepatomegaly. No Francisco catheter is present. There is no suprapubic tenderness. No inguinal adenopathy. His hips and knees appear normal. Below the knees he has some degree of venous stasis type changes. He has very poor capillary refill in both feet and he perceives even light touch as a painful dysesthesia rather than as a lack of sensation. The left great toe was grossly swollen to about twice its normal size. It is not erythematous, and the patient tells me it was yesterday, but it has already improved by keeping his foot elevated and receiving antibiotics. There is a deep ulcer present on the underside of the left great toe which I did not probe, but according to Dr. Garduno's notes it probes to bone. The right great toe has an almost symmetrical lesion but it is much shallower and there is no evidence for surrounding inflammation nor any significant drainage. As noted, capillary refill is poor in both feet and I cannot palpate pulses. Neurologically, aside from the neuropathy in the feet, the patient is intact, with good motor strength, and he is oriented x3. No other area of skin rash or skin breakdown is noted. The patient has no thyromegaly and the rest of the exam is normal. LABORATORIES: Include a white blood count consistently normal 5,400 today, 7% eosinophils. His creatinine is 0.6. ALT is 51. Albumin is 3. Urinalysis without white cells. Alcohol level was less than 10 on admission, which is good as he has had some spectacular alcohol levels on prior admissions. IgG 977 and that dates from an June admission when I checked that on the patient out of concern he was having so many infections. Recent cultures include blood cultures from the , yesterday, which are negative. Cultures from the toes are growing group B strep in 2/2 cultures and Staph aureus in one culture. Recall that this patient does have a history of MRSA so we are waiting on the susceptibilities to the Staph. IMAGING: Includes an x-ray of the foot done yesterday which shows a chronic erosion involving the tuft of the great toe. IMPRESSION: This patient once again is admitted with an infection of a great toe, and in this case it is the left great toe which has osteomyelitis, and when he came in had considerable surrounding cellulitis. Dr. Garduno of Podiatry has weighed in and believes this toe is not salvageable. The tentative plan is for the patient to go for amputation of the left great toe this afternoon. The right great toe appears viable, but I think we will need to provide a significant course of antibiotics here directed at Staph and Strep to make sure that this infection does not also reach the bone and cause bilateral amputations of great toes. RECOMMENDATIONS: 1. I note the patient has been on cefepime. I think this is likely an overly broad antibiotic in terms of gram-negative coverage as we are only growing gram-positives. 2. Will continue with the cefepime overnight while we wait for final cultures, and then narrow. 3. I will add vancomycin immediately to his antibiotics. 4. The patient should be placed in isolation, and I have written that order, as he did have MRSA isolated as recently as June. Thank you for this consult. Will be following this patient closely with you. KALYAN
--- NOTE | 2017-01-02 16:38 | PCM.PHAPRO ---
Progress Vancomycin Management by Pharmacy: -51 yo male admitted with L great toe osteomyelitis requiring Vancomycin therapy -will be going to OR this afternoon for amputation, not able to salvage -concurrent antibiotics include Cefepime 1gm iv [id number] -serum creatinine 0.6, wbc 5.4, afebrile -pt did receive a 1.75gm iv load on 01/01 at 1400 so will need to reload again prior to surg today/now -maintenance doses will be Vancomycin 1gm iv [id number] -trough level shall be drawn prior to 4th dose (1730 on 01/03) -monitor serum creatinine while on Marina Carroll [facility] Jan 02, 2017 16:38
--- NOTE | 2017-01-02 16:56 | PCM.HPANE ---
Patient Data Date of Service: Jan 02, 2017 Surgeon Admitting Provider:Miguel Ángel Ndiaye MD Attending Provider:Mgiuel Ángel Ndiaye MD Primary Care Physician:Kaela Daniel MD Other Provider: Reason for Visit Diabetic Foot Insection L Ht/WT & BMI Height (Feet): 5 Height (Inches): 7.00 Weight (Kilograms): 81.100 Body Mass Index 28.06 Allergies Coded Allergies: Penicillins (Verified Allergy, Severe, Anaphylaxis, 01/01/17) enoxaparin (Verified Allergy, Intermediate, aggitation, 01/01/17) Tetanus Vaccines and Toxoid (Verified Allergy, Unknown, Shortness of Breath, 01/01/17) Past Anesthesia History Anesthesia History: Denies:: Anesthesia Reactions, Fam Anesthesia Reaction Diabetes History Hx Diabetes?: Yes Current Bedside Blood Glucose: 183 MRSA MRSA: Yes Medications Active Scripts hydrOXYzine Hcl (HydrOXYzine Hcl)25 Mg [id number] Mg PO TID PRN For Itching #21 TABLET Ref 0 Prov:Dimitris Omer DO 10/01/16 Glipizide 5 Mg Tablet5 Mg PO BIDWM 30 Days Prov:Dimitris Omer DO 07/13/15 Reported Medications Levetiracetam (Keppra)250 Mg [id number] Mg PO BID 01/01/17 Ascorbic Acid (Vitamin C)1,000 Mg Tab.chew1,000 Mg PO DAILY Ref 0 11/25/16 Turmeric Root Extract (Turmeric)500 Mg CapsuleUnknown Dose PO DAILY 11/25/16 Milk Thistle Seed Extract (Milk Thistle)140 Mg CapsuleUnknown Dose PO DAILY 11/25/16 Vit B Comp/C/FA/Iron/Vit E (Vitamin B Complex Tablet)1 Each Tablet1 Each PO DAILY 11/25/16 Gabapentin 600 Mg Xcciyj535 Mg PO BID Ref 0 11/25/16 Metformin 500 Mg Tablet1,000 Mg PO BID Ref 0 03/18/16 Discontinued Scripts Rifaximin (Xifaxan)550 Mg [id number] Mg PO BID #60 TABLET Prov:Jarret Jorge MD 11/29/16 Omeprazole 40 Mg Capsule.dr40 Mg PO BID #60 CAPSULE Ref 0 Prov:Jarret Jorge MD 11/29/16 History History of ENT Problems?: No HEENT History: Denies:: Cataracts Dysphagia Sinus Problem Hx of Heart Problems?: No Cardiovascular History: Positive for:: Edema ("In my feet") Hypertension ("Sometimes") Denies:: Cardiac Surgery Chest Pain Congestive Heart Failure Heart Murmur Irregular Heartbeat Pacemaker Thrombophlebitis Hx of Respiratory Problem?: No Respiratory History: Positive for:: Hemoptysis Denies:: Asthma COPD Chest Surgery Dyspnea Emphysema Pneumonia Tuberculosis Hx Neurologic Problems?: Yes Neurological History: Positive for:: Dizziness Seizures (last a couple months ago) Denies:: Alzheimer's Disease CVA Dementia Headaches Parkinson's Disease Hx of GI Problems?: No Gastrointestinal History: Positive for:: Gastroesphageal Reflux Gastrointestinal Bleeding (This visit) Heartburn Rectal Bleeding (This visit) Denies:: Diverticulitis Hepatitis Hiatal Hernia Hx of Problems?: No Genitourinary History: Denies:: HX of Hemodialysis Kidney Stones Urinary Tract Infection HX of Peritoneal Dialysis: No Male Hx: Denies:: Prostate Problems Scrotal Mass Testicular Surgery Hx Musculoskeletal Problems?: Yes Musculoskeletal History: Positive for:: Musculoskeletal Trauma (Head injury in 2004) Denies:: Back Injury Joint Replacement Hx of Psycho/Social Problems?: No Psycho Social History: Positive for:: Anxiety Hx Depression Denies:: Bipolar Disorder Suicide Attempt Other History/Comment Schizophrenia Hx Surgeries?: Yes (vasectomy) Hx Any Other Health Problems?: Yes Other History: Positive for:: Cancer Hospitalization Denies:: Thyroid Disease History Blood Transfusions: Positive for:: Accept Blood Products? Denies:: Blood Transfuse Reaction Blood Transfusions Hx Diabetes: YesBedside Blood Glucose: 183 Hx Alcohol Use: Yes (Over 30 days without a drink)Hx Substance Use: Yes ( stopped using crack in 2004) Smoking Status: Current Every Day Smoker Have You Smoked inLast 12 mo: YesApprox How Many Cigarettes/day: 5-10 Stop/Bang Treated for Sleep Apnea?: No Do You Have a CPAP Machine?: No S-Snoring: Do You Snore Loudly: No T-Tired: feel tired, fatigued: Yes O-Obsered: Observed not breath: No P-Blood Pressure: treated: No B- Body Mass Index > 35 kg/m2: No A- Age over 50: No N- Neck Large Circumference: No G- Gender Male: Yes RADHA Total Score: 2 RADHA Risk Assessment: Low Risk, <3 Yes Risk Assessment Category Category 1A: Patient has history of documented sleep apnea, and HAS NOT received any narcotic, sedative or anesthesia administration during this stay. Category 1B: Patient has history of documented sleep apnea, and HAS received any narcotic , sedative or anesthesia administration during this stay Category 2: Patient has SUSPECTED Obstructive Sleep Apnea, and HAS received any narcotic , sedative or anesthesia administration during this stay. Category 3: Patient has SUSPECTED Obstructive Sleep Apnea and HAS NOT received narcotic, sedative or anesthesia administration during this stay. Category 4: Outpatient in Procedural Areas with known sleep apnea or who screen positive for High Risk via the STOP/BANG questionnaire. Exam Exam Vital Signs Vital Signs Date Time Temp Pulse Resp B/P Pulse Ox O2 Delivery O2 Flow Rate FiO2 01/02/17 12:55 36.6 77 16 106/62 95 Room Air 01/02/17 12:04 36.6 79 15 110/72 97 Room Air General Appearance: Alert, Oriented X3, Cooperative, No Acute Distress, Other ( Hears voices, sees visions, but lynn well, and not paranoid) HEENT/AIRWAY: MP 2 Lungs: Clear to Auscultation, Normal Air Movement Heart: Exam Unremarkable, Regular Rate/Rhythm, No Murmurs/Rubs/Gallops Meds/Labs/Diagnostics Admission Meds Current Medications Glipizide (Glucotrol) 5 mg BIDWM PO Last administered on 01/01/17 20:58; Start 01/01/17 at 17:30; Stop 01/02/17 at 10:02; Status DC Levetriacetam (Keppra) 250 mg BID PO Last administered on 01/02/17 10:07; Start 01/01/17 at 20:30 Metformin HCl (Glucophage) 1,000 mg BIDWM PO Last administered on 01/02/17 08: 46; Start 01/01/17 at 17:30 Ascorbic Acid (Vitamin C) 1,000 mg DAILY PO Last administered on 01/02/17 08: 45; Start 01/02/17 at 08:30 Gabapentin (Neurontin) 600 mg BID PO Last administered on 01/02/17 08:46; Start 01/01/17 at 20:30 Prenat Multivit/ Director Of Group Sales/Iron/Folic Ac 1 tablet 1 tablet DAILY PO Last administered on 01/02/17 08:45; Start 01/02/17 at 08:30 Cefepime HCl/ Dextrose/Water (Maxipime Inj/ D5W Minibag Plus) 50 ml @ 12.5 mls/ hr Q8H IV Last administered on 01/02/17 13:20; Start 01/01/17 at 20:30 Insulin Human Lispro Nutritional Dose to be given pr... [facility] SUBQ Last administered on 01/02/17 08:45; Start 01/01/17 at 17:30 Sodium Chloride (Normal Saline) 250 ml @ STK-MED ONCE .ROUTE Last administered on 01/01/17 21:01; Start 01/01/17 at 20:43; Stop 01/01/17 at 20:45 ; Status DC Glipizide 5 mg 5 mg BIDWM PO Last administered on 01/02/17 10:06; Start at 10:01 Sodium Chloride (Normal Saline) 250 ml @ STK-MED ONCE .ROUTE Last administered on 01/02/17 13:21; Start 01/02/17 at 13:14; Stop 01/02/17 at 13:16 ; Status DC Bedside Blood Glucose: 183 Labs Test 01/01/17 11:50 01/02/17 06:10 Prothrombin Time 11.4sec (8.1-12.5) Prothromb Time International Ratio 1.06ratio Lactic Acid Level 2.2mmol/L (0.4-2.0) Ammonia 96ug/dL (18-53) Alcohol, Quantitative < 10mg/dL (0-10) White Blood Count 5.4th/mm3 (3.8-10.1) Red Blood Count 4.05mil/mm3 (4.40-5.80) Hemoglobin 12.5g/dL (13.8-17.2) Hematocrit 37.7% (41.0-50.0) Mean Corpuscular Volume 93.1fL (81-100) Mean Corpuscular Hemoglobin 30.9pg (27.0-35.0) Mean Corpuscular Hemoglobin Concent 33.2% (32.0-37.0) Red Cell Distribution Width 13.2% (12.3-15.4) Platelet Count 170bil/L (150-400) Neutrophils (%) (Auto) 53.2% (40-74) Lymphocytes (%) (Auto) 22.2% (14-46) Monocytes (%) (Auto) 15.7% (4-12) Eosinophils (%) (Auto) 7.4% (0-5) Basophils (%) (Auto) 1.1% (0-3) Sodium Level 136mEq/L (134-144) Potassium Level 4.4mEq/L (3.5-5.2) Chloride Level 103mEq/L (97-108) Carbon Dioxide Level 20mmol/L (18-29) Blood Urea Nitrogen 9mg/dL (6-24) Creatinine 0.60mg/dL (0.76-1.27) Estimat Glomerular Filtration Rate 152mL/min (>59) Glucose Level 255mg/dL (60-99) Calcium Level 8.3mg/dL (8.5-10.1) Total Bilirubin 0.2mg/dL (0.0-1.2) Aspartate Amino Transf (AST/SGOT) 45U/L (0-50) Alanine Aminotransferase (ALT/SGPT) 51U/L (0-44) Alkaline Phosphatase 99U/L (25-150) Total Protein 6.4g/dL (6.4-8.4) Albumin 3.0g/dL (3.4-5.0) Plan Impression Patient chart reviewed, patient interviewed and anesthestic plan with risks, benefits, and alternatives discussed, and informed consent obtained. NPO Status: > 8 hours ASA Physical Status: ASA3 Severe Disease Anesthetic Plan: MAC Bene/Risks/Altern/Consents: Yes HP Complete Prior to Induction: Yes Vito Foley MD Jan 02, 2017 16:56
[2017-01-02] MEDS ORDERED: Lactated Ringer's 500 ML IV PRN (17:06)
[2017-01-02] MEDS ORDERED: Lactated Ringer's 1,000 ML IV SCH (17:06)
--- NOTE | 2017-01-02 17:09 | NUR ---
Off Unit Pt off unit to OR. Jamari sent up to OR by pharmacy.
[2017-01-02] MEDS ORDERED: Atropine 0.4 mg/mL Inj IVPUSH PRN (17:10)
[2017-01-02] MEDS ORDERED: hydrALAZINE 20 mg/mL Inj IVPUSH PRN (17:10)
[2017-01-02] MEDS ORDERED: Labetalol 5 mg/mL 4 mL Inj IV PRN (17:10)
[2017-01-02] MEDS ORDERED: fentaNYL-PF 50 mCg/mL 2 mL Inj IVPUSH PRN (17:10)
[2017-01-02] MEDS ORDERED: Phenylephrine 10,000 mCg/mL Inj IVPUSH PRN (17:10)
[2017-01-02] MEDS ORDERED: Dexamethasone 4 mg/mL Inj IVPUSH PRN (17:10)
[2017-01-02] MEDS ORDERED: Ondansetron 2 mg/mL 2 mL Inj IVPUSH PRN (17:10)
[2017-01-02] MEDS ORDERED: EPHEDrine Sulfate 50 mg/mL Inj IVPUSH PRN (17:10)
[2017-01-02] MEDS ORDERED: HYDROmorphone 1 mg/mL Inj IVPUSH PRN (17:10)
[2017-01-02] MEDS ORDERED: MetoCLOpramide 5 mg/mL 2 mL Inj IVPUSH PRN (17:10)
[2017-01-02] MEDS ORDERED: Bupivacaine-MPF 0.5% 30 mL Inj INJ ONE (17:28)
[2017-01-02] MEDS ORDERED: Lactated Ringer's 1,000 ML IV ONE (17:40)
--- NOTE | 2017-01-02 18:03 | PCM.PODPO ---
Podiatry Operative Report Date of Service: Jan 02, 2017 Date of Service Jan 02, 2017 Pre Operative Diagnosis Osteomyelitis left distal phalanx of the great toe Post Operative Diagnosis Same as preoperative diagnoses Procedure Partial amputation of left great toe Surgeon Surgeon: Miguel Ángel Ndiaye MD Assistants: None Indication for Procedure Osteomyelitis of left hallux distal phalanx Findings Osteomyelitis with significant softening of the distal phalanx, intact and healthy appearance of the left hallux proximal phalanx. Plantar lateral abscess of the distal left great toe with mild meredith purulent drainage Details of Procedure The patient was identified in the preoperative holding area. All preoperative comorbidities and allergies were identified and thoroughly discussed. The patient was transported into the operating room and placed on the operating room table in the normal supine position. The left lower extremity was identified as the appropriate extremity and was marked and a preoperative block consisting of 6 mL of half percent Marcaine plain was given around the base of the left hallux. The patient was then prepped and draped in the normal aseptic technique. Attention was first paid to the left hallux distal phalanx. Inspection of the plantar medial ulceration revealed a 100% fibrotic wound with extension to distal phalanx and notably softened bone. Inspection of the remainder of the left hallux revealed an additional left plantar distal phalanx ulceration with a mild amount of purulent drainage noted. The distal phalanx was compressed until all areolar drainage was expressed from the ulceration. A #10 blade was utilized to make a fishmouth style incision extending from the interphalangeal joint of the left great toe circumferentially encompassing the entirety of the distal phalanx. The left hallux distal phalanx was then excised in total at the level of the left hallux interphalangeal joint. This tissue was then sent for microbiology wound culture. This wound was then copiously flushed with large amounts of normal saline. No further purulent drainage was noted. A single 3. 0 Prolene retention stitch was placed and the wound was dressed with Betadine soaked gauze sterile 4 x 4 gauze Kerlix and an Miguel Angel bandage. The patient was awoken by anesthesia and transported out of the operating room. No complications occurred during this procedure. Plan of care will be to return to the operating room for wound flush debridement and primary closure next week. Grafts, Implants: None Complications There were no periprocedural complications identified. Condition Stable Anesthetic Administered: MAC Catheters: None Output, Estimated Blood Loss: 20 Blood Admin during surgery: No Surgical Cast or Splint: None Surgical Specimen Removed: Yes Specimen sent to Pathology: No Surgical Specimen description: Left hallux distal phalanx sent for wound culture Post Operative Plan Nonweightbearing left foot Keep dressing clean dry and intact Discharge back to floors when stable Restart inpatient medications per hospitalist service recommendation Advance diet as tolerated per hospitalist service recommendation Plan of care to perform daily dressing changes by podiatry with a likely return to the operating room January 07 for washout debridement and primary closure of the left hallux ulceration Continue antibiotics per Dr. Diaz recommendations Turner Roberson DPM Jan 02, 2017 18:03
[2017-01-02] MEDS: Vancomycin Dose per Pharmacist XX SCH (20:09)
[2017-01-02] MEDS: hydrOXYzine Pamoate 25 mg Capsule PO PRN (22:46)
[2017-01-02] MEDS ORDERED: 0.9% Sodium Chloride 100 ML ONE (23:03)
[2017-01-03] MEDS: Vancomycin 1 Gm/200 mL NS Premix IV SCH ×2 (03:28→10:38)
[2017-01-03 04:12] VITALS: BP 102/68; PULSE 68; RESP 16; O2SAT 98
--- NOTE | 2017-01-03 04:56 | NUR ---
Pain / post-op Returned from surgery at shift change, alert and fully oriented, appropriate behavior at all times. Left foot fully bandaged, mild drainage noted; pt able to move foot in all directions, reports sensation intact. Understands non-weight bearing status; has not been out of bed during night. Pain not well controlled on arrival, obtained order for increased medication, given once with good results. Pt very willing to use as little pain medication as possible. IV fluids and antibiotics infusing. Hourly rounding ongoing.
[2017-01-03] MEDS: Cefepime Inj 1,000 MG in Dextrose 5% Minibag Plus 50 ML IV SCH ×2 (06:23→14:05)
[2017-01-03] MEDS: Insulin LISPRO 300 Unit/3 mL Inj SUBQ SCH ×4 (07:45→23:11)
[2017-01-03] MEDS: Multivit-Miner-Folic Acid-Iron Tablet PO SCH (07:53)
[2017-01-03] MEDS: hydrOXYzine Pamoate 25 mg Capsule PO PRN ×3 (07:53→19:27)
[2017-01-03] MEDS: Ascorbic Acid 500 mg Tablet PO SCH (07:53)
[2017-01-03 08:17] VITALS: BP 108/69; PULSE 77; RESP 16; O2SAT 99
[2017-01-03] MEDS: Vancomycin Dose per Pharmacist XX SCH (09:10)
--- NOTE | 2017-01-03 11:00 | NUR ---
spiritual care: follow up Stopped in to visit pt after his surgery. Pt was grateful for the chance to talk about wanda and healing. Had a nice visit. Blessed him before leaving the room. Spiritual care will continue to follow as needed.
--- NOTE | 2017-01-03 13:53 | PCM.ANEP1 ---
Post Anesthesia Phase 1 PACU Phase 1 Assessment Date of Service: Jan 02, 2017 Vital Signs Vital Signs Date Time Temp Pulse Resp B/P Pulse Ox O2 Delivery O2 Flow Rate FiO2 01/03/17 08:17 36.4 77 16 108/69 99 Room Air Anesthetic Administered: MAC Level of Alertness: Sleepy, easy to arouse FOSTER's with Equal Strength: Yes Pain: No Airway Device: Nasal Airway Oxygen Delivery: Simple Mask Lungs: Clear to Auscultation, Normal Air Movement Vito Foley MD Jan 03, 2017 13:53
--- NOTE | 2017-01-03 13:54 | PCM.ANEP2 ---
Post Anesthesia Evaluation ASA/CMS Post Anesthesia Date of Service: Jan 03, 2017 VS in Patient's Normal Range?: Yes Resp Stable; Airway Patent?: Yes CV Function & Hydration Stable: Yes Mental Status Recovered?: Yes Pain control Satisfactory?: Yes N/V Control Satisfactory?: Yes Vito Foley MD Jan 03, 2017 13:54
[2017-01-03 14:09] VITALS: BP 106/68; PULSE 77; RESP 18; O2SAT 98
--- NOTE | 2017-01-03 15:19 | NUR ---
Pain Pt c/o 7-8/10 pain in his left foot. Vistaril given for spasms and IV morphine given for pain. Pt rates pain at acceptable level of 2-3/10 after administration. Pt continues to be NWB to left foot and elevated on pillow. Care continues.
[2017-01-03 16:04] VITALS: BP 117/75; PULSE 76; RESP 16; O2SAT 97
--- NOTE | 2017-01-03 16:26 | PCM.PNMED ---
Subjective Date of Service Jan 03, 2017 Subjective Status post partial amputation of left toe. Afebrile. Pain controlled Exam Vital Signs Vital Sign - Last Date Time Temp Pulse Resp B/P Pulse Ox O2 Delivery O2 Flow Rate FiO2 01/03/17 16:04 36.4 76 16 117/75 97 Room Air 01/02/17 18:10 8 Intake and Output 01/02/17 01/02/17 01/03/17 Cumulative From/Thru 15:00 23:00 07:00 01/01/17 10:52 - 01/03/17 06:24 Intake Total 1600 ml 1229 ml 4554 ml Output Total 1515 ml 1360 ml 6095 ml Balance 85 ml -131 ml -1541 ml Intake Oral 1400 ml 1000 ml 3600 ml IV Total 200 ml 229 ml 954 ml Output Urine Total 1475 ml 1360 ml 6055 ml Estimated Blood Loss 40 ml 40 ml # Bowel Movements 0 0 0 Exam Gen. patient is lying comfortably in hospital bed HEENT: Head is normocephalic atraumatic, Pupils equal and reactive, extraocular movements intact, Lungs clear to auscultation bilaterally Heart regular rate and rhythm without murmurs gallops or rubs Abdomen soft nontender without hepatosplenomegaly Extremities left foot swollen ,erythematous and tender ,from left toe to midfoot dorsally,left toe s/p partial amputation,cleanly dressed Psych alert and oriented to person place and time Neuro cranial nerves II through XII are grossly intact Lymph: There is no lymphadenopathy appreciated in the cervical supra infraclavicular regions : no kelly IVs and Medications Medications Reviewed: Medications were reviewed in detail Lab and Diagnostics Result Diagram: 01/02/17 0610 01/03/17 0550 X-Rays, CTs and MRIs XR foot IMPRESSION: 1. Osteoarthritis. 2. Chronic erosion involving the 1st digit. 3. No acute fracture nor acute osseous lesion. If symptoms and/or clinical suspicion for pathology persist, further assessment with repeat, or advanced imaging (e.g., CT, MRI, or bone scan) may be helpful for further assessment. Dictated by: Ann Dhillon M.D. on 01/01/2017 at 10:12 Additional Diagnostics Date of Service: Jan 02, 2017 Date of Service Jan 02, 2017 Pre Operative Diagnosis Osteomyelitis left distal phalanx of the great toe Post Operative Diagnosis Same as preoperative diagnoses Procedure Partial amputation of left great toe Assistants: None Indication for Procedure Osteomyelitis of left hallux distal phalanx Findings Osteomyelitis with significant softening of the distal phalanx, intact and healthy appearance of the left hallux proximal phalanx. Plantar lateral abscess of the distal left great toe with mild meredith purulent drainage Details of Procedure The patient was identified in the preoperative holding area. All preoperative comorbidities and allergies were identified and thoroughly discussed. The patient was transported into the operating room and placed on the operating room table in the normal supine position. The left lower extremity was identified as the appropriate extremity and was marked and a preoperative block consisting of 6 mL of half percent Marcaine plain was given around the base of the left hallux. The patient was then prepped and draped in the normal aseptic technique. Attention was first paid to the left hallux distal phalanx. Inspection of the plantar medial ulceration revealed a 100% fibrotic wound with extension to distal phalanx and notably softened bone. Inspection of the remainder of the left hallux revealed an additional left plantar distal phalanx ulceration with a mild amount of purulent drainage noted. The distal phalanx was compressed until all areolar drainage was expressed from the ulceration. A #10 blade was utilized to make a fishmouth style incision extending from the interphalangeal joint of the left great toe circumferentially encompassing the entirety of the distal phalanx. The left hallux distal phalanx was then excised in total at the level of the left hallux interphalangeal joint. This tissue was then sent for microbiology wound culture. This wound was then copiously flushed with large amounts of normal saline. No further purulent drainage was noted. A single 3. 0 Prolene retention stitch was placed and the wound was dressed with Betadine soaked gauze sterile 4 x 4 gauze Kerlix and an Miguel Angel bandage. The patient was awoken by anesthesia and transported out of the operating room. No complications occurred during this procedure. Plan of care will be to return to the operating room for wound flush debridement and primary closure next week. Grafts, Implants: None Complications There were no periprocedural complications identified. Assessment & Plan Nigel is a 51-year-old gentleman on his past medical history of type II diabetes , history of seizure disorder, schizophrenia, hyperlipidemia, history of substance and alcohol abuse was sent from urgent care due to left foot painful swelling and redness of 3 days. # Osteomyelitis distal phalanx left hallux, cellulitis left foot/Diabetic foot infection,acute,poa -s/p Partial amputation of left great toe 01/02/17.s/p bedside debridement of left toe 01/01 . Bone Probe consistent with osteomyelitis. -wound culture growing Group B Strept and staph.Blood culture NGTD -on Cefepime, and vancomycin ,ID consulted -Podiatry on board -pain control with morphine # type 2 Dm,chronic, uncontrolled -Continue glipizide and metformin -Insulin sliding scale -a1c 9.1 #History of seizure disorder, chronic -Continue Keppra # History of alcoholic hepatitis with hyperammonia -Ammonia 96 -Lactulose as needed #History of schizophrenia -[facility]s [facility] #History of alcohol -says he is sober for a month now -watch out for withdrawal -alcohol level negative dvt ppx scd Full code Discharge in 2- 3 days Miguel Ángel Ndiaye MD Jan 03, 2017 16:26
[2017-01-03] MEDS ORDERED: Vancomycin Serum Trough XX ONE (17:30)
--- NOTE | 2017-01-03 18:35 | PROG NOTE ---
[address] [address] PROGRESS NOTE PATIENT: ANATOLIY ARMAS : 1965 MR#: [id number] ADMIT: 01/01/2017 JOB ID: [id number] DATE: 01/03/2017 REASON FOR FOLLOWUP: Polymicrobial staph and strep osteomyelitis left great toe, one day status post amputation. INTERVAL HISTORY: Yesterday the patient underwent resection of his left great toe due to chronic osteomyelitis with exposed bone. The patient tolerated that procedure well and overnight no fevers, chills, sweats, chest pain, nausea, vomiting, or diarrhea. He has no pain at the site of his amputated toe but, as the patient says, "I am on morphine." PHYSICAL EXAMINATION: Reveals an afebrile gentleman temperature 36.4, pulse 75, respiratory rate 16, blood pressure 117/75. He is saturating well on room air. Examination of the mental status reveals it to be clear. Lungs clear. Cardiac tones regular rate and rhythm, without murmur. Abdomen benign. The left foot is wrapped in a large postop dressing which I did not remove. LABORATORY STUDIES: Include a white count yesterday 5400, not repeated today. He did have a creatinine today of 0.68. Cultures include now three cultures from the toe; all grow group B strep and 2 grow Staphylococcus aureus. Unfortunately we do not have any susceptibilities to the Staph aureus yet as it was present in a mixed culture and we will have to wait one more day. IMPRESSION: Group B Streptococcus and Staphylococcus aureus osteomyelitis of left great toe status post amputation. How much infection may remain around the metatarsal head is unclear, and I will need to discuss this with Dr. Almanzar before deciding on the length of the course of antibiotics. Which antibiotic to use is still a bit in question as were waiting for susceptibilities on the Staph aureus, but vancomycin should cover both these organisms nicely until we have back more data as to whether this is methicillin-resistant Staphylococcus aureus or not. RECOMMENDATIONS: 1. Will check a MRSA nasal screen, which somehow was not done. 2. Will drop the cefepime today. 3. Will continue with IV vancomycin until we get back susceptibilities. 4. The patient should be kept in house as he lives at [facility] and is expected to have more surgery on Friday. At the conclusion of the surgery on Friday, we should be able to come up with a definitive plan for how long to treat him and with which antibiotic.
[2017-01-03] MEDS: Vancomycin Inj 1,250 MG in 0.9% Sodium Chloride 250 ML IV SCH (19:30)
--- NOTE | 2017-01-03 19:50 | PCM.PHAPRO ---
Progress Date of Service: Jan 03, 2017 Requesting Provider: Jarrett Diaz MD Vancomycin dosing per pharmacy Indication: Osteomyelitis of toe Goal trough: 15-20 Labs: SCr: 0.6 WBC: 5.4 Trough: 13.2 Patient received vancomycin 1,750 mg loading dose on 01/02 then 1000 mg Q8H. As trough is under goal with room to increase, increase to vancomycin 1,250 mg Q8H. Trough has been ordered for 01/04/17 @1830. Pharmacy to continue to monitor and dose vancomycin. Thank you, Ilda Montgomery Pharmacist Ilda Montgomery Jan 03, 2017 19:50
[2017-01-03 19:53] VITALS: BP 103/69; PULSE 84; RESP 16; O2SAT 97
[2017-01-04] MEDS: Vancomycin Inj 1,250 MG in 0.9% Sodium Chloride 250 ML IV SCH ×3 (03:38→20:33)
[2017-01-04] MEDS: hydrOXYzine Pamoate 25 mg Capsule PO PRN ×2 (04:12→15:03)
[2017-01-04 04:16] VITALS: BP 94/66; PULSE 71; RESP 16; O2SAT 98
--- NOTE | 2017-01-04 04:16 | NUR ---
Pain Pain significantly increased after flake drier changed dressing to feet in evening, required 4 mg Morphine to be comfortable. Later in night 3 mg provided acceptable relief. Vistaril providing relief from spasms and itching. Hourly rounding ongoing.
[2017-01-04] MEDS: Insulin LISPRO 300 Unit/3 mL Inj SUBQ SCH ×4 (08:00→22:00)
[2017-01-04] MEDS: Vancomycin Dose per Pharmacist XX SCH (08:24)
--- NOTE | 2017-01-04 08:29 | PCM.PNPOD ---
Subjective Date of Service: Jan 03, 2017 Date of Service: Jan 03, 2017 Visit Information: Reason for Visit Diabetic Foot Insection L Surgery/Surgery Date Post-Op Day # 1 Date of Admission: Jan 01, 2017 at 14:54 Hospital Day # Subjective: day 1 status post partial left hallux amputation. No new complaints overnight. Patient resting comfortably in bed in NAD Postop General: No Complaints Gastrointestinal: Good Appetite Objective Vital Sign - Last Date Time Temp Pulse Resp B/P Pulse Ox O2 Delivery O2 Flow Rate FiO2 01/04/17 04:16 36.3 71 16 94/66 98 Room Air 01/02/17 18:10 8 Intake and Output 01/03/17 01/03/17 01/04/17 Cumulative From/Thru 15:00 23:00 07:00 01/01/17 10:52 - 01/04/17 06:11 Intake Total 1920 ml 1190 ml 7664 ml Output Total 950 ml 1350 ml 8395 ml Balance 970 ml -160 ml -731 ml Intake Oral 1920 ml 900 ml 6420 ml IV Total 290 ml 1244 ml Output Urine Total 950 ml 1350 ml 8355 ml Estimated Blood Loss 40 ml # Bowel Movements 1 1 Result Diagram: 01/02/17 0610 01/04/17 0555 Lab Test 01/01/17 11:50 01/02/17 06:10 01/03/17 17:08 01/04/17 05:55 Prothrombin Time 11.4sec (8.1-12.5) Prothromb Time International Ratio 1.06ratio Lactic Acid Level 2.2mmol/L (0.4-2.0) Ammonia 96ug/dL (18-53) Alcohol, Quantitative < 10mg/dL (0-10) White Blood Count 5.4th/mm3 (3.8-10.1) Red Blood Count 4.05mil/mm3 (4.40-5.80) Hemoglobin 12.5g/dL (13.8-17.2) Hematocrit 37.7% (41.0-50.0) Mean Corpuscular Volume 93.1fL (81-100) Mean Corpuscular Hemoglobin 30.9pg (27.0-35.0) Mean Corpuscular Hemoglobin Concent 33.2% (32.0-37.0) Red Cell Distribution Width 13.2% (12.3-15.4) Platelet Count 170bil/L (150-400) Neutrophils (%) (Auto) 53.2% (40-74) Lymphocytes (%) (Auto) 22.2% (14-46) Monocytes (%) (Auto) 15.7% (4-12) Eosinophils (%) (Auto) 7.4% (0-5) Basophils (%) (Auto) 1.1% (0-3) Sodium Level 136mEq/L (134-144) Potassium Level 4.4mEq/L (3.5-5.2) Chloride Level 103mEq/L (97-108) Carbon Dioxide Level 20mmol/L (18-29) Blood Urea Nitrogen 9mg/dL (6-24) Estimat Glomerular Filtration Rate 152mL/min (>59) Glucose Level 255mg/dL (60-99) Hemoglobin A1c 9.1% (4.8-5.6) Calcium Level 8.3mg/dL (8.5-10.1) Total Bilirubin 0.2mg/dL (0.0-1.2) Aspartate Amino Transf (AST/SGOT) 45U/L (0-50) Alanine Aminotransferase (ALT/SGPT) 51U/L (0-44) Alkaline Phosphatase 99U/L (25-150) Total Protein 6.4g/dL (6.4-8.4) Albumin 3.0g/dL (3.4-5.0) Vancomycin Level Trough 13.2mcg/mL Creatinine 0.64mg/dL (0.76-1.27) Exam General: Alert, Oriented X3, Cooperative, No Acute Distress Lungs: Clear to Auscultation, Normal Air Movement Lower Extremity Pulses: Absent: Left Dorsalis Pedis Left Posterior Tibal Right Dorsalis Pedis Right Posterior Tibal Podiatry WOUND : Wound Location/Description left hallux amputation site wound with mild sanguinous drainage, no erythema, no mal odor, no signs of continued infection. right hallux plantar medial ulceration without exposed bone or tendon. no mal odor no erythema, no signs of infection. Surgical Cast or Splint: None Assessment & Plan Impression stable left hallux amputation site wound without signs of acute infection. Problems: Plan Dressing changed today. Patient appears to be improving without any noted signs of continued infection. Betadine soaked gauze dressing applied bilaterally. plan for return to the OR friday after 5pm for washout and wound closure. next dressing change friday01/05/17. Continue antibiotics per Dr. Diaz. Turner Roberson DPM Jan 04, 2017 08:29
[2017-01-04] MEDS: Multivit-Miner-Folic Acid-Iron Tablet PO SCH (08:31)
[2017-01-04] MEDS: Ascorbic Acid 500 mg Tablet PO SCH (08:31)
[2017-01-04 09:18] LABS: BASOPHILS % (AUTO) 1.3 % (0-3); EOSINOPHILS % (AUTO) 8.2 % (0-5); MONOCYTES % (AUTO) 17.9 % (4-12); Mean Corpuscular Hemoglobin 31.2 pg (27.0-35.0); Mean Corpuscular Volume 93.2 fL (81-100); NEUTROPHILS % (AUTO) 41.4 % (40-74); Platelet Count 189 bil/L (150-400)
[2017-01-04 09:54] LABS: Magnesium 1.7 mg/dL (1.6-2.6)
[2017-01-04 12:38] VITALS: BP 127/79; PULSE 80; RESP 16; O2SAT 98
--- NOTE | 2017-01-04 14:44 | NUR ---
Social work Note - continued d/c planning. ARCHEOLOGY FACULTY MEMBER met with Pt - known from previous ED and admissions. Pt lives at [facility] confirms that pt is able to return when medically stable. Pt previously was homeless, - living in a tent near [place]. He is followed by [facility] for Mental Health and Substance Use disorder. He reports that he is feeling stable and denies any needs. EMR identifies that pt will go back to surgery on Friday or Friday and depending on wound care, pt will likely remain in the hospital for the next few days. Plan: Return to [facility] when medically stable. VEL Melendrez
--- NOTE | 2017-01-04 16:17 | PCM.PNMED ---
Subjective Date of Service Jan 04, 2017 Subjective No new complaints. Afebrile. Awaiting repeat wound exploration and closure on Friday. Exam Vital Signs Vital Sign - Last Date Time Temp Pulse Resp B/P Pulse Ox O2 Delivery O2 Flow Rate FiO2 01/04/17 12:38 36.5 80 16 127/79 98 Room Air 01/02/17 18:10 8 Intake and Output 01/03/17 01/03/17 01/04/17 Cumulative From/Thru 15:00 23:00 07:00 01/01/17 10:52 - 01/04/17 06:11 Intake Total 1920 ml 1190 ml 7664 ml Output Total 950 ml 1350 ml 8395 ml Balance 970 ml -160 ml -731 ml Intake Oral 1920 ml 900 ml 6420 ml IV Total 290 ml 1244 ml Output Urine Total 950 ml 1350 ml 8355 ml Estimated Blood Loss 40 ml # Bowel Movements 1 1 Exam Gen. patient is lying comfortably in hospital bed HEENT: Head is normocephalic atraumatic, Pupils equal and reactive, extraocular movements intact, Lungs clear to auscultation bilaterally Heart regular rate and rhythm without murmurs gallops or rubs Abdomen soft nontender without hepatosplenomegaly Extremities left foot swollen ,erythematous and tender ,from left toe to midfoot dorsally,left toe s/p partial amputation,cleanly dressed Psych alert and oriented to person place and time Neuro cranial nerves II through XII are grossly intact Lymph: There is no lymphadenopathy appreciated in the cervical supra infraclavicular regions : no kelly IVs and Medications Medications Reviewed: Medications were reviewed in detail Lab and Diagnostics Result Diagram: 01/04/17 0555 01/04/17 0555 X-Rays, CTs and MRIs XR foot IMPRESSION: 1. Osteoarthritis. 2. Chronic erosion involving the 1st digit. 3. No acute fracture nor acute osseous lesion. If symptoms and/or clinical suspicion for pathology persist, further assessment with repeat, or advanced imaging (e.g., CT, MRI, or bone scan) may be helpful for further assessment. Dictated by: Ann Dhillon M.D. on 01/01/2017 at 10:12 Additional Diagnostics Date of Service: Jan 02, 2017 Date of Service Jan 02, 2017 Pre Operative Diagnosis Osteomyelitis left distal phalanx of the great toe Post Operative Diagnosis Same as preoperative diagnoses Procedure Partial amputation of left great toe Assistants: None Indication for Procedure Osteomyelitis of left hallux distal phalanx Findings Osteomyelitis with significant softening of the distal phalanx, intact and healthy appearance of the left hallux proximal phalanx. Plantar lateral abscess of the distal left great toe with mild meredith purulent drainage Details of Procedure The patient was identified in the preoperative holding area. All preoperative comorbidities and allergies were identified and thoroughly discussed. The patient was transported into the operating room and placed on the operating room table in the normal supine position. The left lower extremity was identified as the appropriate extremity and was marked and a preoperative block consisting of 6 mL of half percent Marcaine plain was given around the base of the left hallux. The patient was then prepped and draped in the normal aseptic technique. Attention was first paid to the left hallux distal phalanx. Inspection of the plantar medial ulceration revealed a 100% fibrotic wound with extension to distal phalanx and notably softened bone. Inspection of the remainder of the left hallux revealed an additional left plantar distal phalanx ulceration with a mild amount of purulent drainage noted. The distal phalanx was compressed until all areolar drainage was expressed from the ulceration. A #10 blade was utilized to make a fishmouth style incision extending from the interphalangeal joint of the left great toe circumferentially encompassing the entirety of the distal phalanx. The left hallux distal phalanx was then excised in total at the level of the left hallux interphalangeal joint. This tissue was then sent for microbiology wound culture. This wound was then copiously flushed with large amounts of normal saline. No further purulent drainage was noted. A single 3. 0 Prolene retention stitch was placed and the wound was dressed with Betadine soaked gauze sterile 4 x 4 gauze Kerlix and an Miguel Angel bandage. The patient was awoken by anesthesia and transported out of the operating room. No complications occurred during this procedure. Plan of care will be to return to the operating room for wound flush debridement and primary closure next week. Grafts, Implants: None Complications There were no periprocedural complications identified. Assessment & Plan Nigel is a 51-year-old gentleman on his past medical history of type II diabetes , history of seizure disorder, schizophrenia, hyperlipidemia, history of substance and alcohol abuse was sent from urgent care due to left foot painful swelling and redness of 3 days. # Osteomyelitis distal phalanx left hallux, cellulitis left foot/Diabetic foot infection,acute,poa -s/p Partial amputation of left great toe 01/02/17.s/p bedside debridement of left toe 01/01 . Bone Probe consistent with osteomyelitis. -wound culture growing Group B Strept and staph.Blood culture NGTD -Initially treated with Cefepime and vancomycin ,ID consulted . Currently on vancomycin only -Podiatry on board. will go for washout and wound closure on Friday. -pain control with morphine # type 2 Dm,chronic, uncontrolled -Continue glipizide and metformin -Insulin sliding scale -a1c 9.1 #History of seizure disorder, chronic -Continue Keppra # History of alcoholic hepatitis with hyperammonia -Ammonia 96 -Lactulose as needed #History of schizophrenia -[facility]s [facility] #History of alcohol -says he is sober for a month now -watch out for withdrawal -alcohol level negative dvt ppx scd Full code Discharge in 2- 3 days Miguel Ángel Ndiaye MD Jan 04, 2017 16:17
--- NOTE | 2017-01-04 17:57 | NUR ---
Pain Pt c/o pain 8/10 2 hours after 2 mg of Morphine IV given. Chandler HUIZAR, advised to give another 2mg of Morphine and restart the Q4 hours at that dosing. Pt much more comfortable after giving the 2mg of Morphine.
[2017-01-04] MEDS ORDERED: Vancomycin Serum Trough XX ONE (18:30)
[2017-01-04 19:48] VITALS: BP 121/77; PULSE 90; RESP 18; O2SAT 98
--- NOTE | 2017-01-04 23:44 | NUR ---
PAIN; pt pleasant, talkative. M.s. 4mg given at h.s. with stated effectiveness. CARE TRANSFERED; to [facility] rn at [id number].
[2017-01-05] MEDS: Vancomycin Inj 1,250 MG in 0.9% Sodium Chloride 250 ML IV SCH ×3 (02:55→19:43)
[2017-01-05 05:03] VITALS: BP 110/70; PULSE 76; RESP 18; O2SAT 98
--- NOTE | 2017-01-05 07:34 | NUR ---
Pain Pt requested PRN morphine 3mg, good effect. Prior to admin pt does tell eccentric stories, poss baseline. Vanco IV and NS TKO, contact for MRSA. No complaints of chest pain or SOB this shift. Care continues
[2017-01-05] MEDS: Insulin LISPRO 300 Unit/3 mL Inj SUBQ SCH ×4 (08:00→22:00)
[2017-01-05] MEDS: Vancomycin Dose per Pharmacist XX SCH (08:30)
[2017-01-05] MEDS: Ascorbic Acid 500 mg Tablet PO SCH (08:58)
[2017-01-05] MEDS: Multivit-Miner-Folic Acid-Iron Tablet PO SCH (08:58)
[2017-01-05 11:36] VITALS: BP 115/67; PULSE 81; RESP 15; O2SAT 97
--- NOTE | 2017-01-05 12:07 | PCM.PNPOD ---
Subjective Date of Service: Jan 05, 2017 Date of Service: Jan 05, 2017 Visit Information: Reason for Visit Diabetic Foot Insection L Surgery/Surgery Date Post-Op Day # Date of Admission: Jan 01, 2017 at 14:54 Hospital Day # Subjective: Patient evaluated at bedside in NAD. no new issues since last evaluation. patient denies any pain. Postop General: No Complaints Gastrointestinal: Good Appetite Pain Management: No or Minimal Pain Objective Vital Sign - Last Date Time Temp Pulse Resp B/P Pulse Ox O2 Delivery O2 Flow Rate FiO2 01/05/17 11:36 36.5 81 15 115/67 97 Room Air 01/02/17 18:10 8 Intake and Output 01/04/17 01/04/17 01/05/17 Cumulative From/Thru 15:00 23:00 07:00 01/01/17 10:52 - 01/05/17 06:26 Intake Total 1836 ml 944 ml 92858 ml Output Total 2500 ml 1550 ml 73400 ml Balance -664 ml -606 ml -2001 ml Intake Oral 1836 ml 944 ml 9200 ml IV Total 1244 ml Output Urine Total 2500 ml 1550 ml 78736 ml Estimated Blood Loss 40 ml # Bowel Movements 0 1 Result Diagram: 01/04/17 0555 01/04/17 0555 Lab Test 01/01/17 11:50 01/02/17 06:10 01/04/17 05:55 01/04/17 18:30 Prothrombin Time 11.4sec (8.1-12.5) Prothromb Time International Ratio 1.06ratio Lactic Acid Level 2.2mmol/L (0.4-2.0) Ammonia 96ug/dL (18-53) Alcohol, Quantitative < 10mg/dL (0-10) Hemoglobin A1c 9.1% (4.8-5.6) White Blood Count 5.5th/mm3 (3.8-10.1) Red Blood Count 4.13mil/mm3 (4.40-5.80) Hemoglobin 12.9g/dL (13.8-17.2) Hematocrit 38.5% (41.0-50.0) Mean Corpuscular Volume 93.2fL (81-100) Mean Corpuscular Hemoglobin 31.2pg (27.0-35.0) Mean Corpuscular Hemoglobin Concent 33.5% (32.0-37.0) Red Cell Distribution Width 13.4% (12.3-15.4) Platelet Count 189bil/L (150-400) Neutrophils (%) (Auto) 41.4% (40-74) Lymphocytes (%) (Auto) 30.3% (14-46) Monocytes (%) (Auto) 17.9% (4-12) Eosinophils (%) (Auto) 8.2% (0-5) Basophils (%) (Auto) 1.3% (0-3) Sodium Level 137mEq/L (134-144) Potassium Level 4.4mEq/L (3.5-5.2) Chloride Level 101mEq/L (97-108) Carbon Dioxide Level 22mmol/L (18-29) Blood Urea Nitrogen 9mg/dL (6-24) Creatinine 0.61mg/dL (0.76-1.27) Estimat Glomerular Filtration Rate 149mL/min (>59) Glucose Level 134mg/dL (60-99) Calcium Level 8.8mg/dL (8.5-10.1) Magnesium Level 1.7mg/dL (1.6-2.6) Total Bilirubin 0.2mg/dL (0.0-1.2) Aspartate Amino Transf (AST/SGOT) 37U/L (0-50) Alanine Aminotransferase (ALT/SGPT) 38U/L (0-44) Alkaline Phosphatase 84U/L (25-150) Total Protein 6.3g/dL (6.4-8.4) Albumin 3.1g/dL (3.4-5.0) Vancomycin Level Trough 11.2mcg/mL Exam General: Alert, Oriented X3, Cooperative, No Acute Distress Lungs: Clear to Auscultation, Normal Air Movement Lower Extremities: Bilateral: Extremity pink Extremity warm Lower Extremity Pulses: Absent: Left Dorsalis Pedis Left Posterior Tibal Right Dorsalis Pedis Right Posterior Tibal Podiatry WOUND : Wound Location/Description left hallux amputation site wound with no surrounding erythema. mild sanguinous drainage no signs of infection. retention suture intact and inplace. Surgical Cast or Splint: None Assessment & Plan Impression stable left hallux amputation site wound without signs of acute infection Problems: Plan Dressing removed and wound flushed with normal saline. NO signs of continued infection. Right great toe dressing left intact. Betadine soaked gauze dressing applied to the left hallux amputation site. dressing will remain intact for 48- 72 hrs. continue antibiotics per Dr. Diaz Plan for return to the OR for wound flush/debridement and likely primary closure friday01/07/17. please make NPO after 9 am Friday AM Podiatry will continue to follow every 48-72 hrs. Patient will likely be stable for DC following wound closure Turner Roberson DPM Jan 05, 2017 12:07
--- NOTE | 2017-01-05 15:51 | NUR ---
PETEY Signed DEMAR Emery
--- NOTE | 2017-01-05 18:09 | PCM.PNMED ---
Subjective Date of Service Jan 05, 2017 Subjective No new complaints. Awaiting wound washout and closure tomorrow. Wound culture growing MRSA Exam Vital Signs Vital Sign - Last Date Time Temp Pulse Resp B/P Pulse Ox O2 Delivery O2 Flow Rate FiO2 01/05/17 11:36 36.5 81 15 115/67 97 Room Air 01/02/17 18:10 8 Intake and Output 01/04/17 01/04/17 01/05/17 Cumulative From/Thru 15:00 23:00 07:00 01/01/17 10:52 - 01/05/17 06:26 Intake Total 1836 ml 944 ml 49123 ml Output Total 2500 ml 1550 ml 35444 ml Balance -664 ml -606 ml -2001 ml Intake Oral 1836 ml 944 ml 9200 ml IV Total 1244 ml Output Urine Total 2500 ml 1550 ml 51152 ml Estimated Blood Loss 40 ml # Bowel Movements 0 1 Exam Gen. patient is lying comfortably in hospital bed HEENT: Head is normocephalic atraumatic, Pupils equal and reactive, extraocular movements intact, Lungs clear to auscultation bilaterally Heart regular rate and rhythm without murmurs gallops or rubs Abdomen soft nontender without hepatosplenomegaly Extremities left foot swollen ,erythematous and tender ,from left toe to midfoot dorsally,left toe s/p partial amputation,cleanly dressed Psych alert and oriented to person place and time Neuro cranial nerves II through XII are grossly intact Lymph: There is no lymphadenopathy appreciated in the cervical supra infraclavicular regions : no kelly IVs and Medications Medications Reviewed: Medications were reviewed in detail Lab and Diagnostics Result Diagram: 01/04/17 0555 01/04/17 0555 X-Rays, CTs and MRIs XR foot IMPRESSION: 1. Osteoarthritis. 2. Chronic erosion involving the 1st digit. 3. No acute fracture nor acute osseous lesion. If symptoms and/or clinical suspicion for pathology persist, further assessment with repeat, or advanced imaging (e.g., CT, MRI, or bone scan) may be helpful for further assessment. Dictated by: Ann Dhillon M.D. on 01/01/2017 at 10:12 Additional Diagnostics Date of Service: Jan 02, 2017 Date of Service Jan 02, 2017 Pre Operative Diagnosis Osteomyelitis left distal phalanx of the great toe Post Operative Diagnosis Same as preoperative diagnoses Procedure Partial amputation of left great toe Assistants: None Indication for Procedure Osteomyelitis of left hallux distal phalanx Findings Osteomyelitis with significant softening of the distal phalanx, intact and healthy appearance of the left hallux proximal phalanx. Plantar lateral abscess of the distal left great toe with mild meredith purulent drainage Details of Procedure The patient was identified in the preoperative holding area. All preoperative comorbidities and allergies were identified and thoroughly discussed. The patient was transported into the operating room and placed on the operating room table in the normal supine position. The left lower extremity was identified as the appropriate extremity and was marked and a preoperative block consisting of 6 mL of half percent Marcaine plain was given around the base of the left hallux. The patient was then prepped and draped in the normal aseptic technique. Attention was first paid to the left hallux distal phalanx. Inspection of the plantar medial ulceration revealed a 100% fibrotic wound with extension to distal phalanx and notably softened bone. Inspection of the remainder of the left hallux revealed an additional left plantar distal phalanx ulceration with a mild amount of purulent drainage noted. The distal phalanx was compressed until all areolar drainage was expressed from the ulceration. A #10 blade was utilized to make a fishmouth style incision extending from the interphalangeal joint of the left great toe circumferentially encompassing the entirety of the distal phalanx. The left hallux distal phalanx was then excised in total at the level of the left hallux interphalangeal joint. This tissue was then sent for microbiology wound culture. This wound was then copiously flushed with large amounts of normal saline. No further purulent drainage was noted. A single 3. 0 Prolene retention stitch was placed and the wound was dressed with Betadine soaked gauze sterile 4 x 4 gauze Kerlix and an Miguel Angel bandage. The patient was awoken by anesthesia and transported out of the operating room. No complications occurred during this procedure. Plan of care will be to return to the operating room for wound flush debridement and primary closure next week. Grafts, Implants: None Complications There were no periprocedural complications identified. Assessment & Plan Nigel is a 51-year-old gentleman on his past medical history of type II diabetes , history of seizure disorder, schizophrenia, hyperlipidemia, history of substance and alcohol abuse was sent from urgent care due to left foot painful swelling and redness of 3 days. # MRSA Osteomyelitis distal phalanx left hallux, cellulitis left foot/Diabetic foot infection,acute,poa -s/p Partial amputation of left great toe 01/02/17.s/p bedside debridement of left toe 01/01 . Bone Probe consistent with osteomyelitis. -wound culture growing Group B Strept and MRSA .Blood culture NGTD.MRSA sensitive to vancomycin and linezolid -Initially treated with Cefepime and vancomycin ,ID consulted . Currently on vancomycin only -Podiatry on board. will go for washout and wound closure on Friday. -pain control with morphine # type 2 Dm,chronic, uncontrolled -Continue glipizide and metformin -Insulin sliding scale -a1c 9.1 #History of seizure disorder, chronic -Continue Keppra # History of alcoholic hepatitis with hyperammonia -Ammonia 96 -Lactulose as needed #History of schizophrenia -[facility]s [facility] #History of alcohol -says he is sober for a month now -watch out for withdrawal -alcohol level negative dvt ppx scd Full code Discharge in 2- 3 days Miguel Ángel Ndiaye MD Jan 05, 2017 18:09
--- NOTE | 2017-01-05 19:07 | NUR ---
Pain Pt had increased pain 8/10 after podiatry did dressing change. Pain well controlled with morphine 4mg. Pt states baseline pain is 5/10 because of peripheral neuropathy. Pt appropriate all shift and was able to use call light when needed. Has history of schizophrenia and has hallucinations and hears voices, but that they are "under control." On contact precautions for positive MRSA.
[2017-01-05 21:18] VITALS: BP 128/85; PULSE 62; RESP 18; O2SAT 97
--- NOTE | 2017-01-05 23:37 | NUR ---
PAIN; M.s. 3mg iv for c/o feet pain with stated relief. Pt. states is waiting to see if he gets surgery friday or friday-that the hasn't decided yet.
[2017-01-06] MEDS: Vancomycin Inj 1,250 MG in 0.9% Sodium Chloride 250 ML IV SCH (02:23)
[2017-01-06 05:26] VITALS: BP 114/79; PULSE 79; RESP 18; O2SAT 97
[2017-01-06] MEDS: Insulin LISPRO 300 Unit/3 mL Inj SUBQ SCH ×4 (08:00→22:00)
[2017-01-06] MEDS: Multivit-Miner-Folic Acid-Iron Tablet PO SCH (08:11)
[2017-01-06] MEDS: Ascorbic Acid 500 mg Tablet PO SCH (08:12)
[2017-01-06] MEDS: Vancomycin Dose per Pharmacist XX SCH (08:30)
[2017-01-06 10:57] LABS: Vancomycin, Trough 13.5 mcg/mL
[2017-01-06 12:59] VITALS: BP 120/79; PULSE 68; RESP 18; O2SAT 97
[2017-01-06] MEDS: DAPTOmycin Inj 500 MG in 0.9% Sodium Chloride 50 ML IV SCH (14:10)
--- NOTE | 2017-01-06 17:25 | PCM.PNMED ---
Subjective Date of Service Jan 06, 2017 Subjective denies any new issues/complaints Exam Vital Signs Vital Sign - Last Date Time Temp Pulse Resp B/P Pulse Ox O2 Delivery O2 Flow Rate FiO2 01/06/17 12:59 36.8 68 18 120/79 97 Room Air 01/02/17 18:10 8 Intake and Output 01/05/17 01/05/17 01/06/17 Cumulative From/Thru 15:00 23:00 07:00 01/01/17 10:52 - 01/06/17 06:03 Intake Total 1033 ml 2136 ml 1414 ml 20819 ml Output Total 2875 ml 800 ml 88096 ml Balance 1033 ml -739 ml 614 ml -1093 ml Intake Oral 1660 ml 472 ml 40168 ml IV Total 1033 ml 476 ml 942 ml 3695 ml Output Urine Total 2875 ml 800 ml 28404 ml Estimated Blood Loss 40 ml # Bowel Movements 0 3 4 General: Alert, Cooperative, No Acute Distress Head: Normal Eyes: Scleral Anicteric Mouth: Mucous Membr Moist/[place] Neck: Supple Chest & Lungs: Chest Wall Normal, Clear to auscultation & percussion Cardiovascular: Regular Rate/Rhythm Abdomen: Non-tender, Non-distended, Normoactive bowel tones, Soft Extremities: No cyanosis/clubbing/edma bilat, Other (left foot in dressing) Neurological: Grossly Neurologically Intact, Normal Speech IVs and Medications Medications Reviewed: Medications were reviewed in detail Lab and Diagnostics Result Diagram: 01/04/17 0555 01/06/17 1005 X-Rays, CTs and MRIs XR foot IMPRESSION: 1. Osteoarthritis. 2. Chronic erosion involving the 1st digit. 3. No acute fracture nor acute osseous lesion. If symptoms and/or clinical suspicion for pathology persist, further assessment with repeat, or advanced imaging (e.g., CT, MRI, or bone scan) may be helpful for further assessment. Dictated by: Ann Dhillon M.D. on 01/01/2017 at 10:12 Additional Diagnostics Date of Service: Jan 02, 2017 Date of Service Jan 02, 2017 Pre Operative Diagnosis Osteomyelitis left distal phalanx of the great toe Post Operative Diagnosis Same as preoperative diagnoses Procedure Partial amputation of left great toe Assistants: None Indication for Procedure Osteomyelitis of left hallux distal phalanx Findings Osteomyelitis with significant softening of the distal phalanx, intact and healthy appearance of the left hallux proximal phalanx. Plantar lateral abscess of the distal left great toe with mild meredith purulent drainage Details of Procedure The patient was identified in the preoperative holding area. All preoperative comorbidities and allergies were identified and thoroughly discussed. The patient was transported into the operating room and placed on the operating room table in the normal supine position. The left lower extremity was identified as the appropriate extremity and was marked and a preoperative block consisting of 6 mL of half percent Marcaine plain was given around the base of the left hallux. The patient was then prepped and draped in the normal aseptic technique. Attention was first paid to the left hallux distal phalanx. Inspection of the plantar medial ulceration revealed a 100% fibrotic wound with extension to distal phalanx and notably softened bone. Inspection of the remainder of the left hallux revealed an additional left plantar distal phalanx ulceration with a mild amount of purulent drainage noted. The distal phalanx was compressed until all areolar drainage was expressed from the ulceration. A #10 blade was utilized to make a fishmouth style incision extending from the interphalangeal joint of the left great toe circumferentially encompassing the entirety of the distal phalanx. The left hallux distal phalanx was then excised in total at the level of the left hallux interphalangeal joint. This tissue was then sent for microbiology wound culture. This wound was then copiously flushed with large amounts of normal saline. No further purulent drainage was noted. A single 3. 0 Prolene retention stitch was placed and the wound was dressed with Betadine soaked gauze sterile 4 x 4 gauze Kerlix and an Miguel Angel bandage. The patient was awoken by anesthesia and transported out of the operating room. No complications occurred during this procedure. Plan of care will be to return to the operating room for wound flush debridement and primary closure next week. Grafts, Implants: None Complications There were no periprocedural complications identified. Assessment & Plan 51-year-old gentleman on his past medical history of type II diabetes, history of seizure disorder, schizophrenia, hyperlipidemia, history of substance and alcohol abuse was sent from urgent care due to left foot painful swelling and redness of 3 days. # MRSA Osteomyelitis distal phalanx left hallux, cellulitis left foot/Diabetic foot infection, acute, poa -s/p Partial amputation of left great toe 01/02/17. - s/p bedside debridement of left toe 01/01 . - Bone Probe consistent with osteomyelitis. - wound culture growing Group B Strept and MRSA . - MRSA sensitive to vancomycin and linezolid - Initially treated with Cefepime and vancomycin. Currently on vancomycin only - Appreciate ID and Podiatry consults. will f/u w/ recs. - Plan for washout and wound closure tomorrow # type 2 Dm, chronic, currently under control - Continue glipizide and metformin - Insulin sliding scale - HgA1C 9.1 #History of seizure disorder, chronic -Continue Keppra # History of alcoholic hepatitis with hyperammonemia -Ammonia 96 -Lactulose as needed #History of schizophrenia -[facility]s [facility] #History of alcohol -says he is sober for a month now -watch out for withdrawal -alcohol level negative Dispo: 2-3 days VTE Mechanical Devices: Intermittant Pneumatic CD Time spent 30 min Shaq Iqbal Jan 06, 2017 17:25
--- NOTE | 2017-01-06 17:27 | NUR ---
BILAT FEET PAIN Bilateral feet drsgs are in place, C/D/I. Changed by podiatry 01/05. Patient complained of pain 8/10, radiating from feet up to thighs. Medicated with morphine 4mg IVP, which was effective at taking away all pain per pt, 0/10. Using urinal at bedside. IV ABX infused without any adverse reactions. Continue to monitor.
--- NOTE | 2017-01-06 19:15 | PROG NOTE ---
[address] [address] PROGRESS NOTE PATIENT: ANATOLIY ARMAS : 1965 MR#: [id number] ADMIT: 01/01/2017 JOB ID: [id number] DATE: 01/06/2017 REASON FOR FOLLOWUP: Osteomyelitis, left great toe. Status post partial amputation. INTERVAL HISTORY: Over the weekend, the patient states he has been free of fevers, chills, and sweats. He has no respiratory or GI complaints. No skin rash and no problem with his antibiotics. He notes that the laboratory geneticist just changed his dressings and that there is good progress with respect to his left great toe with the plan to go back to the operating room and close that tomorrow. PHYSICAL EXAMINATION: Reveals an afebrile gentleman, in no acute distress. Temp 36.8, pulse 79, respiratory rate 18, blood pressure 114/79. He is saturating well on room air. He is alert and oriented, in no acute distress. Oral cavity negative. Lungs clear. Cardiac tones without murmur. Abdomen without hepatosplenomegaly. Both feet are dressed in complex dressings. They were applied by Podiatry and I did not remove them, but rather just reviewed the notes which indicate good wound healing at the site of the left great toe amputation. LABS: Include a white count stable at 5500, hematocrit 38, platelet count 199. Creatinine 0.46. LFTs are normal. Albumin 3.1. The micro is now concluded and we have multiple cultures growing MRSA, as well as group B Strep. Interestingly, the MRSA isolate consistently has a vancomycin JANET of 2, which would indicate that probably vancomycin is not going to be a good agent for this organism especially. IMPRESSION: This case has gotten a little bit difficult because it turns out that the methicillin-resistant Staphylococcus aureus found in the foot is only slightly sensitive to vancomycin. There is a lot of confusion in the literature about vancomycin and minimum inhibitory concentration creep, but certainly a level of 2 would be disconcerting, especially in a bone infection where we are not going to get good penetration anyway. Also present is group B Streptococcus which, of course, is much easier to treat. RECOMMENDATIONS: 1. Will discontinue the vancomycin as the JANET is 2. 2. Will start the patient on daptomycin. 3. I have asked the micro lab to set up dalbavancin and daptomycin susceptibilities. 4. We may be forced to treat this patient either with continued IV antibiotics, which will be problematic as he is currently living in some sort of alcohol rehab temporary living situation, or we may need to switch to linezolid, which will require fairly close lab followup due to potential long-term toxicities. 5. I plan to discuss this case with Dr. Roberson with respect to whether or not he thinks there is significant remaining osteo, as that might alter our duration and intensity of therapy.
[2017-01-06 21:05] VITALS: BP 145/82; PULSE 94; RESP 20; O2SAT 97
[2017-01-07 06:20] VITALS: BP 105/67; PULSE 72; RESP 20; O2SAT 95
[2017-01-07 06:43] LABS: BASOPHILS % (AUTO) 0.9 % (0-3); EOSINOPHILS % (AUTO) 6.1 % (0-5); MONOCYTES % (AUTO) 14.2 % (4-12); Mean Corpuscular Hemoglobin 31.2 pg (27.0-35.0); Mean Corpuscular Volume 91.9 fL (81-100); NEUTROPHILS % (AUTO) 58.3 % (40-74); Platelet Count 167 bil/L (150-400)
--- NOTE | 2017-01-07 07:18 | NUR ---
Foot Pain Bilateral dressings are intact and dry, betadine showing through on R great toe. Pt to be NPO today at 0900 per verbal report. IV patent and infusing. Pain managed with morphine 4 mg this shift. Pt uses urinal, calls appropriately. Care continues
[2017-01-07] MEDS: Insulin LISPRO 300 Unit/3 mL Inj SUBQ SCH ×4 (08:00→21:55)
[2017-01-07] MEDS: DAPTOmycin Inj 500 MG in 0.9% Sodium Chloride 50 ML IV SCH (08:29)
[2017-01-07] MEDS: Multivit-Miner-Folic Acid-Iron Tablet PO SCH (08:31)
[2017-01-07] MEDS: Ascorbic Acid 500 mg Tablet PO SCH (08:32)
[2017-01-07] MEDS ORDERED: fentaNYL-PF 50 mCg/mL 2 mL Inj ONE (13:10)
[2017-01-07] MEDS ORDERED: Ondansetron 2 mg/mL 2 mL Inj ONE (13:10)
[2017-01-07] MEDS: hydrOXYzine Pamoate 25 mg Capsule PO PRN (13:25)
--- NOTE | 2017-01-07 14:27 | NUR ---
Social Work-continued d/c planning: Data:EMR Reviewed. Pt is on day 6 of hospitalization for diabetic foot infection per H&P. Pt is medically stable in the next couple days. Pt to go to OR today with Podiatry and continues on IV abx. Unclear at this time if pt will need termite control service representative IV abx or not. Pt has been staying at [facility] and anticipate pt will discharge back there. Pt is enrolled in [facility] for counseling. SW will continue to follow. Assessment:Pt who is independent at baseline. Plan:Pt to discharge back to [facility] when medically stable. R/O IV abx. W will continue to follow. DEMAR Bernard
[2017-01-07 14:52] VITALS: BP 107/69; PULSE 82; RESP 18; O2SAT 96
--- NOTE | 2017-01-07 15:02 | PROG NOTE ---
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 INTERVAL HISTORY: Overnight the patient reports he has been feeling fairly well. No fevers, chills, sweats. No pulmonary or GI symptoms. He has minimal pain at the site of his partial amputation of the left great toe, though he does have some pain just proximal to that along the medial forefoot. PHYSICAL EXAMINATION: Reveals an afebrile gentleman, temperature 36.4, pulse 72, respiratory rate 20, blood pressure 105/67. He is saturating well on room air. He has no skin rash. No problems with his peripheral IV. Abdomen benign. The left great toe was been partially amputated. There is an open area just involving the proximal portion of the left great toe which is to be closed during surgery later today. This area appears fairly uninfected, though the remaining area of the left great toe is still somewhat purplish in color, with some tenderness. This tenderness extends unfortunately down onto the medial forefoot. No purulence is seen from the wound. The patient has drastically diminished sensation involving his toes due to neuropathy. LABORATORIES: Include a white count of 5700, platelet count 167,000. Creatinine is 0.44. The micro on this case is quite interesting. His cultures from the toe are growing MRSA and group B strep. The MRSA is actually is not especially susceptible to vancomycin, with an JANET of two, and the dalbavancin JANET is 0.25, which is actually borderline, and may suggested even dalbavancin would fail. The only drugs that this organism is really susceptible to are linezolid and daptomycin, and really nothing else is likely to work. It is completely resistant to all other oral options. The group B strep presumably is quite susceptible. 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 He is status post a partial amputation but it looks like there is still some infection present and I think we are going to have to treat this patient for a minimum of four weeks to prevent infection from rekindling his medial forefoot. RECOMMENDATIONS: 1. Will continue with daptomycin at this time. 2. The only real options for discharge here will be to send him out with IV antibiotics somehow, to receive daptomycin for another three weeks or so on a daily basis IV or linezolid with very close followup on his white blood cell count and platelets going forward. 3. We will see this patient tomorrow after he has his surgery tonight and I will discuss this case with Dr. López and start to make a plan, but I think those are our two choices. Basically he will either get daptomycin for the next few weeks IV once a day or oral linezolid t MTDD
--- NOTE | 2017-01-07 15:43 | PCM.PNMED ---
Subjective Date of Service Jan 07, 2017 Subjective denies any new issues/complaints Exam Vital Signs Vital Sign - Last Date Time Temp Pulse Resp B/P Pulse Ox O2 Delivery O2 Flow Rate FiO2 01/07/17 14:52 36.2 82 18 107/69 96 Room Air 01/02/17 18:10 8 Intake and Output 01/06/17 01/06/17 01/07/17 Cumulative From/Thru 15:00 23:00 07:00 01/01/17 10:52 - 01/07/17 06:38 Intake Total 1590 ml 603 ml 65218 ml Output Total 2250 ml 300 ml 14831 ml Balance -660 ml 303 ml -1450 ml Intake Oral 1276 ml 350 ml 57938 ml IV Total 314 ml 253 ml 4262 ml Output Urine Total 2250 ml 300 ml 94934 ml Estimated Blood Loss 40 ml # Bowel Movements 4 Exam General: Alert, Cooperative, No Acute Distress Head: Normal Eyes: Scleral Anicteric Mouth: Mucous Membr Moist/[place] Neck: Supple Chest & Lungs: Chest Wall Normal, Clear to auscultation bilat Cardiovascular: Regular Rate/Rhythm Abdomen: Non-tender, Non-distended, Normoactive bowel tones, Soft Extremities: No cyanosis/clubbing/edema bilat, Other (left foot in dressing) Neurological: Grossly Neurologically Intact, Normal Speech IVs and Medications Medications Reviewed: Medications were reviewed in detail Lab and Diagnostics Result Diagram: 01/07/1720 01/07/17619 X-Rays, CTs and MRIs XR foot IMPRESSION: 1. Osteoarthritis. 2. Chronic erosion involving the 1st digit. 3. No acute fracture nor acute osseous lesion. If symptoms and/or clinical suspicion for pathology persist, further assessment with repeat, or advanced imaging (e.g., CT, MRI, or bone scan) may be helpful for further assessment. Dictated by: Ann hDillon M.D. on 01/01/2017 at 10:12 Additional Diagnostics Date of Service: Jan 02, 2017 Date of Service Jan 02, 2017 Pre Operative Diagnosis Osteomyelitis left distal phalanx of the great toe Post Operative Diagnosis Same as preoperative diagnoses Procedure Partial amputation of left great toe Assistants: None Indication for Procedure Osteomyelitis of left hallux distal phalanx Findings Osteomyelitis with significant softening of the distal phalanx, intact and healthy appearance of the left hallux proximal phalanx. Plantar lateral abscess of the distal left great toe with mild meredith purulent drainage Details of Procedure The patient was identified in the preoperative holding area. All preoperative comorbidities and allergies were identified and thoroughly discussed. The patient was transported into the operating room and placed on the operating room table in the normal supine position. The left lower extremity was identified as the appropriate extremity and was marked and a preoperative block consisting of 6 mL of half percent Marcaine plain was given around the base of the left hallux. The patient was then prepped and draped in the normal aseptic technique. Attention was first paid to the left hallux distal phalanx. Inspection of the plantar medial ulceration revealed a 100% fibrotic wound with extension to distal phalanx and notably softened bone. Inspection of the remainder of the left hallux revealed an additional left plantar distal phalanx ulceration with a mild amount of purulent drainage noted. The distal phalanx was compressed until all areolar drainage was expressed from the ulceration. A #10 blade was utilized to make a fishmouth style incision extending from the interphalangeal joint of the left great toe circumferentially encompassing the entirety of the distal phalanx. The left hallux distal phalanx was then excised in total at the level of the left hallux interphalangeal joint. This tissue was then sent for microbiology wound culture. This wound was then copiously flushed with large amounts of normal saline. No further purulent drainage was noted. A single 3. 0 Prolene retention stitch was placed and the wound was dressed with Betadine soaked gauze sterile 4 x 4 gauze Kerlix and an Miguel Angel bandage. The patient was awoken by anesthesia and transported out of the operating room. No complications occurred during this procedure. Plan of care will be to return to the operating room for wound flush debridement and primary closure next week. Grafts, Implants: None Complications There were no periprocedural complications identified. Assessment & Plan 51-year-old gentleman on his past medical history of type II diabetes, history of seizure disorder, schizophrenia, hyperlipidemia, history of substance and alcohol abuse was sent from urgent care due to left foot painful swelling and redness of 3 days. # MRSA Osteomyelitis distal phalanx left hallux, cellulitis left foot/Diabetic foot infection, acute, poa -s/p Partial amputation of left great toe 01/02/17. - s/p bedside debridement of left toe 01/01 . - Bone Probe consistent with osteomyelitis. - wound culture growing Group B Strept and MRSA . - MRSA sensitive to vancomycin and linezolid - Initially treated with Cefepime and vancomycin. Currently on Daptomycin - Appreciate ID and Podiatry consults. will f/u w/ recs. - Plan for washout and wound closure later today # type 2 Dm, chronic, currently under control - Continue glipizide and metformin - Insulin sliding scale - HgA1C 9.1 #History of seizure disorder, chronic -Continue Keppra # History of alcoholic hepatitis with hyperammonemia -Ammonia 96 -Lactulose as needed #History of schizophrenia -[facility]s [facility] #History of alcohol -says he is sober for a month now -watch out for withdrawal -alcohol level negative Dispo: 2-3 days VTE Mechanical Devices: Intermittant Pneumatic CD Time spent 25 min Shaq Iqbal Jan 07, 2017 15:43
[2017-01-07] MEDS ORDERED: Lactated Ringer's 500 ML IV PRN (17:18)
[2017-01-07] MEDS ORDERED: Lactated Ringer's 1,000 ML IV SCH (17:18)
--- NOTE | 2017-01-07 17:18 | PCM.HPANE ---
Patient Data Surgeon Admitting Provider:Miguel Ángel Ndiaye MD Attending Provider:Miguel Ángel Ndiaye MD Primary Care Physician:Kaela Daniel MD Other Provider:Mel Jessica Anesthesia Reason for Visit Diabetic Foot Insection L Ht/WT & BMI Height (Feet): 5 Height (Inches): 7.00 Weight (Kilograms): 81.100 Body Mass Index 28.06 Allergies Coded Allergies: Penicillins (Verified Allergy, Severe, Anaphylaxis, 01/01/17) enoxaparin (Verified Allergy, Intermediate, aggitation, 01/01/17) Tetanus Vaccines and Toxoid (Verified Allergy, Unknown, Shortness of Breath, 01/01/17) Past Anesthesia History Anesthesia History: Denies:: Anesthesia Reactions, Fam Anesthesia Reaction Diabetes History Hx Diabetes?: Yes Current Bedside Blood Glucose: 148 MRSA MRSA: Yes Medications Active Scripts hydrOXYzine Hcl (HydrOXYzine Hcl)25 Mg Omdwnc25 Mg PO TID PRN For Itching #21 TABLET Ref 0 Prov:Dimitris Omer DO 10/01/16 Glipizide 5 Mg Tablet5 Mg PO BIDWM 30 Days Prov:Dimitris Omer DO 07/13/15 Reported Medications Levetiracetam (Keppra)250 Mg Vbyage546 Mg PO BID 01/01/17 Ascorbic Acid (Vitamin C)1,000 Mg Tab.chew1,000 Mg PO DAILY Ref 0 11/25/16 Turmeric Root Extract (Turmeric)500 Mg CapsuleUnknown Dose PO DAILY 11/25/16 Milk Thistle Seed Extract (Milk Thistle)140 Mg CapsuleUnknown Dose PO DAILY 11/25/16 Vit B Comp/C/FA/Iron/Vit E (Vitamin B Complex Tablet)1 Each Tablet1 Each PO DAILY 11/25/16 Gabapentin 600 Mg Uyrzsy539 Mg PO BID Ref 0 11/25/16 Metformin 500 Mg Tablet1,000 Mg PO BID Ref 0 03/18/16 Discontinued Scripts Rifaximin (Xifaxan)550 Mg Mgovjd679 Mg PO BID #60 TABLET Prov:Jarret Jorge MD 11/29/16 Omeprazole 40 Mg Capsule.dr40 Mg PO BID #60 CAPSULE Ref 0 Prov:Jarret Jorge MD 11/29/16 History History of ENT Problems?: No HEENT History: Denies:: Cataracts Dysphagia Sinus Problem Hx of Heart Problems?: No Cardiovascular History: Positive for:: Edema ("In my feet") Hypertension ("Sometimes") Denies:: Cardiac Surgery Chest Pain Congestive Heart Failure Heart Murmur Irregular Heartbeat Pacemaker Thrombophlebitis Hx of Respiratory Problem?: No Respiratory History: Positive for:: Hemoptysis Denies:: Asthma COPD Chest Surgery Dyspnea Emphysema Pneumonia Tuberculosis Hx Neurologic Problems?: Yes Neurological History: Positive for:: Dizziness Seizures (last a couple months ago) Denies:: Alzheimer's Disease CVA Dementia Headaches Parkinson's Disease Hx of GI Problems?: No Gastrointestinal History: Positive for:: Gastroesphageal Reflux Gastrointestinal Bleeding (This visit) Heartburn Rectal Bleeding (This visit) Denies:: Diverticulitis Hepatitis Hiatal Hernia Hx of Problems?: No Genitourinary History: Denies:: HX of Hemodialysis Kidney Stones Urinary Tract Infection HX of Peritoneal Dialysis: No Male Hx: Denies:: Prostate Problems Scrotal Mass Testicular Surgery Hx Musculoskeletal Problems?: Yes Musculoskeletal History: Positive for:: Musculoskeletal Trauma (Head injury in 2004) Denies:: Back Injury Joint Replacement Hx of Psycho/Social Problems?: No Psycho Social History: Positive for:: Anxiety Hx Depression Denies:: Bipolar Disorder Suicide Attempt Hx Surgeries?: Yes (vasectomy) Hx Any Other Health Problems?: Yes Other History: Positive for:: Cancer Hospitalization Denies:: Thyroid Disease History Blood Transfusions: Positive for:: Accept Blood Products? Denies:: Blood Transfuse Reaction Blood Transfusions Hx Diabetes: YesBedside Blood Glucose: 148 Hx Alcohol Use: Yes (Over 30 days without a drink)Hx Substance Use: Yes ( stopped using crack in 2004) Smoking Status: Current Every Day Smoker Have You Smoked inLast 12 mo: YesApprox How Many Cigarettes/day: 5-10 Stop/Bang Treated for Sleep Apnea?: No Do You Have a CPAP Machine?: No S-Snoring: Do You Snore Loudly: No T-Tired: feel tired, fatigued: Yes O-Obsered: Observed not breath: No P-Blood Pressure: treated: No B- Body Mass Index > 35 kg/m2: No A- Age over 50: No N- Neck Large Circumference: No G- Gender Male: Yes RADHA Total Score: 2 RADHA Risk Assessment: Low Risk, <3 Yes Risk Assessment Category Category 1A: Patient has history of documented sleep apnea, and HAS NOT received any narcotic, sedative or anesthesia administration during this stay. Category 1B: Patient has history of documented sleep apnea, and HAS received any narcotic , sedative or anesthesia administration during this stay Category 2: Patient has SUSPECTED Obstructive Sleep Apnea, and HAS received any narcotic , sedative or anesthesia administration during this stay. Category 3: Patient has SUSPECTED Obstructive Sleep Apnea and HAS NOT received narcotic, sedative or anesthesia administration during this stay. Category 4: Outpatient in Procedural Areas with known sleep apnea or who screen positive for High Risk via the STOP/BANG questionnaire. Low Risk, <3 Yes Exam Exam Vital Signs Vital Signs Date Time Temp Pulse Resp B/P Pulse Ox O2 Delivery O2 Flow Rate FiO2 01/07/17 14:52 36.2 82 18 107/69 96 Room Air General Appearance: Alert, Oriented X3, Cooperative HEENT/AIRWAY: MP 2, Neck Movement (from), Mouth Opening (Opening WNL, Poor Dentition) Lungs: Clear to Auscultation, Normal Air Movement Heart: Exam Unremarkable Meds/Labs/Diagnostics Bedside Blood Glucose: 148 Labs Test 01/01/17 11:50 01/02/17 06:10 01/04/17 05:55 01/06/17 10:05 Prothrombin Time 11.4sec (8.1-12.5) Prothromb Time International Ratio 1.06ratio Lactic Acid Level 2.2mmol/L (0.4-2.0) Ammonia 96ug/dL (18-53) Alcohol, Quantitative < 10mg/dL (0-10) Hemoglobin A1c 9.1% (4.8-5.6) Magnesium Level 1.7mg/dL (1.6-2.6) Total Bilirubin 0.2mg/dL (0.0-1.2) Aspartate Amino Transf (AST/SGOT) 37U/L (0-50) Alanine Aminotransferase (ALT/SGPT) 38U/L (0-44) Alkaline Phosphatase 84U/L (25-150) Total Protein 6.3g/dL (6.4-8.4) Albumin 3.1g/dL (3.4-5.0) Vancomycin Level Trough 13.5mcg/mL Test 01/07/17 06:20 White Blood Count 5.7th/mm3 (3.8-10.1) Red Blood Count 4.33mil/mm3 (4.40-5.80) Hemoglobin 13.5g/dL (13.8-17.2) Hematocrit 39.8% (41.0-50.0) Mean Corpuscular Volume 91.9fL (81-100) Mean Corpuscular Hemoglobin 31.2pg (27.0-35.0) Mean Corpuscular Hemoglobin Concent 33.9% (32.0-37.0) Red Cell Distribution Width 13.4% (12.3-15.4) Platelet Count 167bil/L (150-400) Neutrophils (%) (Auto) 58.3% (40-74) Lymphocytes (%) (Auto) 19.6% (14-46) Monocytes (%) (Auto) 14.2% (4-12) Eosinophils (%) (Auto) 6.1% (0-5) Basophils (%) (Auto) 0.9% (0-3) Sodium Level 137mEq/L (134-144) Potassium Level 4.2mEq/L (3.5-5.2) Chloride Level 105mEq/L (97-108) Carbon Dioxide Level 18mmol/L (18-29) Blood Urea Nitrogen 8mg/dL (6-24) Creatinine 0.44mg/dL (0.76-1.27) Estimat Glomerular Filtration Rate 217mL/min (>59) Glucose Level 149mg/dL (60-99) Calcium Level 8.5mg/dL (8.5-10.1) Plan Impression Patient chart reviewed, patient interviewed and anesthestic plan with risks, benefits, and alternatives discussed, and informed consent obtained. NPO Status: > 8 hours ASA Physical Status: ASA3 Severe Disease Anesthetic Plan: MAC Bene/Risks/Altern/Consents: Yes HP Complete Prior to Induction: Yes (contact precautions because of MRSA) Josh Orellana MD Jan 07, 2017 17:18
[2017-01-07] MEDS ORDERED: EPHEDrine Sulfate 50 mg/mL Inj IVPUSH PRN (17:20)
[2017-01-07] MEDS ORDERED: Labetalol 5 mg/mL 4 mL Inj IV PRN (17:20)
[2017-01-07] MEDS ORDERED: Phenylephrine 10,000 mCg/mL Inj IVPUSH PRN (17:20)
[2017-01-07] MEDS ORDERED: hydrALAZINE 20 mg/mL Inj IVPUSH PRN (17:20)
[2017-01-07] MEDS ORDERED: Dexamethasone 4 mg/mL Inj IVPUSH PRN (17:20)
[2017-01-07] MEDS ORDERED: fentaNYL-PF 50 mCg/mL 2 mL Inj IVPUSH PRN (17:20)
[2017-01-07] MEDS ORDERED: Ondansetron 2 mg/mL 2 mL Inj IVPUSH PRN (17:20)
[2017-01-07] MEDS ORDERED: Lactated Ringer's 1,000 ML IV ONE (17:20)
[2017-01-07] MEDS ORDERED: Atropine 0.4 mg/mL Inj IVPUSH PRN (17:20)
[2017-01-07] MEDS ORDERED: HYDROmorphone 1 mg/mL Inj IVPUSH PRN (17:20)
[2017-01-07] MEDS ORDERED: Bupivacaine-MPF 0.5% 30 mL Inj INFILTRATE ONE (17:25)
[2017-01-07 18:11] VITALS: BP 102/63; PULSE 76; RESP 14; O2SAT 94
--- NOTE | 2017-01-07 18:11 | PCM.ANEP1 ---
Post Anesthesia Phase 1 PACU Phase 1 Assessment Date of Service: Jan 05, 2017 Vital Signs Vital Signs Date Time Temp Pulse Resp B/P Pulse Ox O2 Delivery O2 Flow Rate FiO2 01/07/17 14:52 36.2 82 18 107/69 96 Room Air Anesthetic Administered: MAC Level of Alertness: Sleepy, easy to arouse FOSTER's with Equal Strength: Yes Pain: No Airway Device: Nasal Airway Lungs: Normal Air Movement Josh Orellana MD Jan 07, 2017 18:11
--- NOTE | 2017-01-07 18:15 | PCM.PODPO ---
Podiatry Operative Report Date of Service: Jan 07, 2017 Date of Service Jan 07, 2017 Pre Operative Diagnosis Osteomyelitis left distal phalanx of the great toe status post partial left hallux amputation Ulceration of the right plantar hallux Post Operative Diagnosis Same as preoperative diagnoses Procedure Washout and debridement of left hallux amputation site with primary closure Full thickness excisional debridement right hallux ulcer Surgeon Surgeon: Turner Roberson Assistants: None Indication for Procedure Healthy appearing left hallux proximal phalanx without any residual purulent discharge Full-thickness ulceration of the right plantar hallux Findings Healthy appearance of the left hallux proximal phalanx without any residual purulent discharge, full-thickness ulceration of the right plantar hallux Details of Procedure The patient was identified in the preoperative holding area. All preoperative comorbidities and allergies were identified and thoroughly discussed. The patient was transported into the operating room and placed on the operating room table in the normal supine position. The patient was placed under Mac anesthesia by the anesthesia service. Attention was first paid the left lower extremity. The retention suture was removed. A preoperative block was given consisting of 7 mL of half percent Marcaine plain to the bilateral great toe. Inspection of the left hallux amputation site revealed a granular wound with a minimal amount of fibrotic slough. Full thickness excisional debridement was performed of all fibrotic and nonviable soft tissue. This wound was then copious to close with large amounts of normal saline. A #15 blade was utilized to excise the plantar lateral ulceration in an elliptical manner extending perpendicular to the amputation site incision. Again this wound was flushed with normal saline. This wound was carefully closed utilizing number 3. 0 Prolene ensuring optimal apposition of all wound edges. No significant stress as noted on the left hallux of dictation site sutures. Attention was then paid to the right hallux plantar ulceration full thickness excisional debridement was performed utilizing a curet with removal of all fibrotic and nonviable soft tissue this wound extended subcutaneous tissue without exposed bone or tendon there is no surrounding erythema and no malodor and no signs of acute infection. Pre-debridement measurements are 1 cm x 1 cm x 0.1 cm. Post-debridement measurement is 1.4 cm by 1.5 cm x 0.2 cm bilateral wounds were dressed with Adaptic sterile 4 x 4 gauze soaked in Betadine dry sterile gauze Kerlix and a minimally compressive Miguel Angel bandage the patient was awoken by anesthesia. No complications occurred during this procedure. Grafts, Implants: None Complications There were no periprocedural complications identified. Condition Stable Anesthetic Administered: MAC Catheters: None Output, Estimated Blood Loss: 10 Blood Admin during surgery: No Surgical Cast or Splint: None Surgical Specimen Removed: No Specimen sent to Pathology: No Post Operative Plan Nonweightbearing left foot Keep dressing clean dry and intact Discharge back to floors when stable Restart inpatient medications per hospitalist service recommendation Advance diet as tolerated per hospitalist service recommendation Patient likely stable for discharge to outpatient care as I am confident all infected bone and soft tissue has been excised at this time Continue antibiotics per Dr. Diaz recommendations Turner Roberson DPM Jan 07, 2017 18:15
[2017-01-07 18:17] VITALS: BP 99/67; PULSE 73; RESP 12; O2SAT 94
[2017-01-07 18:23] VITALS: BP 102/64; PULSE 75; RESP 12; O2SAT 97
--- NOTE | 2017-01-07 18:26 | NUR ---
Pt off unit Pt off unit to OR for toe surgery at 1650 in w/c. Report given to RN. Pt BILL, CRISTIAN, A&O x 3. IV s/l.
[2017-01-07 18:48] VITALS: BP 121/82; PULSE 74; RESP 18; O2SAT 99
--- NOTE | 2017-01-07 19:15 | PCM.ANEP2 ---
Post Anesthesia Evaluation ASA/CMS Post Anesthesia VS in Patient's Normal Range?: Yes Resp Stable; Airway Patent?: Yes CV Function & Hydration Stable: Yes Mental Status Recovered?: Yes Pain control Satisfactory?: Yes N/V Control Satisfactory?: Yes Josh Orellana MD Jan 07, 2017 19:15
--- NOTE | 2017-01-07 19:28 | NUR ---
Post op Pt back in room from PACU. Able to transfer self from gurney to bed. IV infusing LR in surgical tubing, IV slightly red. Feet bilaterally wrapped with kerlex and sal wraps, C,D&I. Pt A&O x 3, FOSTER, VSFlorence. Pain 7/10 and wanting morphine. Also wanting BG checked so he can eat dinner, denies any nausea.
[2017-01-08 00:25] VITALS: BP 117/77; PULSE 81; RESP 20; O2SAT 96
[2017-01-08 05:31] VITALS: BP 104/74; PULSE 68; RESP 18; O2SAT 98
[2017-01-08] MEDS: hydrOXYzine Pamoate 25 mg Capsule PO PRN (07:51)
[2017-01-08] MEDS: Multivit-Miner-Folic Acid-Iron Tablet PO SCH (07:52)
[2017-01-08] MEDS: Ascorbic Acid 500 mg Tablet PO SCH (07:52)
[2017-01-08] MEDS: Insulin LISPRO 300 Unit/3 mL Inj SUBQ SCH ×4 (08:00→20:55)
[2017-01-08] MEDS: DAPTOmycin Inj 500 MG in 0.9% Sodium Chloride 50 ML IV SCH (09:47)
--- NOTE | 2017-01-08 11:27 | PROG NOTE ---
[address] [address] PROGRESS NOTE PATIENT: ANATOLIY ARMAS : 1965 MR#: [id number] ADMIT: 01/01/2017 JOB ID: [id number] DATE: 01/08/2017 INFECTIOUS DISEASE FOLLOW UP NOTE: REASON FOR FOLLOWUP: Polymicrobial infection with osteomyelitis left distal great toe. INTERVAL HISTORY: The patient underwent an additional debridement and closure of the wound yesterday per Dr. Roberson. I have reviewed Dr. Roberson's notes and he indicates that all infectious tissues have been removed. For his part, the patient says he feels fine today. No fevers, chills or sweats. No cough, shortness of breath, nausea, vomiting, diarrhea. He has some pain at the amputation site, but it is fairly minimal. PHYSICAL EXAMINATION: Reveals an afebrile gentleman, temperature 36.4, pulse 68, respiratory rate 18, blood pressure 104/74, saturating 98% on room air. The patient's oral cavity is without pharyngitis. His lungs are clear. Abdomen soft and nontender. His left foot is wrapped in a large postop dressing and there is some blood coming through it around the area of the surgery on the great toe yesterday. LABORATORIES: Include a white count of 5700, normal differential except 6% eosinophils which is actually a little bit better than it has been. Creatinine 0.44. It is notable also that his platelets are normal at 167,000 and his liver function tests normal. Microbiology of this infection is interesting in that he has a very nasty MRSA, which has a vanc JANET of 2. The only antibiotics to which it is very susceptible are dapto which has an excellent JANET and linezolid. Otherwise we have really no agents to treat this MRSA with and the vanco would be likely to fail. This is a complicated case of a gentleman with group B strep and MRSA in his foot. The MRSA is quite resistant and we do not have much in the way of good alternatives here. At this point, really we can treat him with IV dapto, which is not going to be feasible as he is living in a [facility]pc house and is usually homeless, or oral linezolid. Fortunately Dr. Roberson believes that he has resected all the infected tissue so I think we could probably confine our antibiotic therapy to 10-14 days of oral antibiotics at the time of discharge. RECOMMENDATIONS: 1. I would continue with IV dapto as long as he is here in the hospital which may be another day or two. 2. When he leaves, I would given him 10 days of oral linezolid 600 mg p.o. b.i.d. This patient has a propensity not to followup and I am inclined not to give him a longer course of linezolid because of the risk of thrombocytopenia, acidosis and other feared complications of linezolid when one extends to longer courses. I think we can get away with 10 days of the oral linezolid because he has already had a week of IV antibiotics here in the hospital directed at the MRSA and Dr. Roberson notes he has resected all the infected tissue. 3. I have written an order for the social workers to investigate the availability of linezolid. It is now cheaper as it is now generic. We still need to make sure he will have a 10 day supply when he leaves in the next day or two. 4. ID will sign off on this case at this time, but thank you very much for once again involving me in the patient's care.
--- NOTE | 2017-01-08 11:32 | PCM.PNPOD ---
Subjective Date of Service: Jan 08, 2017 Date of Service: Jan 08, 2017 Visit Information: Reason for Visit Diabetic Foot Insection L Surgery/Surgery Date Post-Op Day # Date of Admission: Jan 01, 2017 at 14:54 Hospital Day # Subjective: 51-year-old male who is 18 hours status post partial amputation left hallux by , is seen for postoperative wound check. Patient is without complaints no significant pain currently but he does request pain medication upon discharge. He feels he is doing well psychologically regarding the partial amputation. Objective Vital Sign - Last Date Time Temp Pulse Resp B/P Pulse Ox O2 Delivery O2 Flow Rate FiO2 01/08/17 05:31 36.4 68 18 104/74 98 Room Air 01/02/17 18:10 8 Intake and Output 01/07/17 01/07/17 01/08/17 Cumulative From/Thru 15:00 23:00 07:00 01/01/17 10:52 - 01/08/17 06:08 Intake Total 929 ml 960 ml 55205 ml Output Total 1110 ml 1025 ml 94610 ml Balance -181 ml -65 ml -1696 ml Intake Oral 240 ml 960 ml 16585 ml IV Total 689 ml 4951 ml Output Urine Total 1100 ml 1025 ml 82796 ml Estimated Blood Loss 10 ml 50 ml # Bowel Movements 0 4 Result Diagram: 01/07/17 0620 01/07/17 0620 Lab Test 01/01/17 11:50 01/02/17 06:10 01/04/17 05:55 01/06/17 10:05 Prothrombin Time 11.4sec (8.1-12.5) Prothromb Time International Ratio 1.06ratio Lactic Acid Level 2.2mmol/L (0.4-2.0) Ammonia 96ug/dL (18-53) Alcohol, Quantitative < 10mg/dL (0-10) Hemoglobin A1c 9.1% (4.8-5.6) Magnesium Level 1.7mg/dL (1.6-2.6) Total Bilirubin 0.2mg/dL (0.0-1.2) Aspartate Amino Transf (AST/SGOT) 37U/L (0-50) Alanine Aminotransferase (ALT/SGPT) 38U/L (0-44) Alkaline Phosphatase 84U/L (25-150) Total Protein 6.3g/dL (6.4-8.4) Albumin 3.1g/dL (3.4-5.0) Vancomycin Level Trough 13.5mcg/mL Test 01/07/17 06:20 White Blood Count 5.7th/mm3 (3.8-10.1) Red Blood Count 4.33mil/mm3 (4.40-5.80) Hemoglobin 13.5g/dL (13.8-17.2) Hematocrit 39.8% (41.0-50.0) Mean Corpuscular Volume 91.9fL (81-100) Mean Corpuscular Hemoglobin 31.2pg (27.0-35.0) Mean Corpuscular Hemoglobin Concent 33.9% (32.0-37.0) Red Cell Distribution Width 13.4% (12.3-15.4) Platelet Count 167bil/L (150-400) Neutrophils (%) (Auto) 58.3% (40-74) Lymphocytes (%) (Auto) 19.6% (14-46) Monocytes (%) (Auto) 14.2% (4-12) Eosinophils (%) (Auto) 6.1% (0-5) Basophils (%) (Auto) 0.9% (0-3) Sodium Level 137mEq/L (134-144) Potassium Level 4.2mEq/L (3.5-5.2) Chloride Level 105mEq/L (97-108) Carbon Dioxide Level 18mmol/L (18-29) Blood Urea Nitrogen 8mg/dL (6-24) Creatinine 0.44mg/dL (0.76-1.27) Estimat Glomerular Filtration Rate 217mL/min (>59) Glucose Level 149mg/dL (60-99) Calcium Level 8.5mg/dL (8.5-10.1) Exam General: Alert, Oriented X3, Cooperative, No Acute Distress Lungs: Normal Air Movement Lower Extremities: Bilateral: Extremity pink Extremity warm Lower Extremity Pulses: Absent: Left Dorsalis Pedis Left Posterior Tibal Right Dorsalis Pedis Right Posterior Tibal Surgical Cast or Splint: None Additional Information: Reexam shows patient to be resting comfortably, no acute distress, dressings CDI , slight sanguinous drainage distal left hallux. Incision noted be well coapted , sutures intact mild residual hyperemia and edema of the hallux, but no evidence of overt soft tissue infection. Superficial wound of the right hallux is not evaluated at this visit. Assessment & Plan Impression Patient is doing well postoperatively Problems: Plan Betadine solution dressing and noncompressive gauze bandage reapplied on the left today. Patient advised to bear on the left heel only in the postoperative shoe, will discuss outpatient pain management, and fabrication of a insole with hallux accommodation with Edmund Le DPM Jan 08, 2017 11:31
--- NOTE | 2017-01-08 12:26 | NUR ---
IV/Pain Patient lost IV access due to infiltration this am. Dr. Diaz on site at time. Changing IV antibiotics to PO at this time. Dr. Iqbal changing IV MS to PO Percocet for pain control. MD's aware that patient is without IV access at this time. Dr. Garduno on site to change Bilateral foot dressings at this time as well. Will give PO pain meds when ordered.
--- NOTE | 2017-01-08 12:47 | NUR ---
Social Work- Readiness for Discharge: Data: EMR reviewed. Pt is on day7 of hospitalization for diabetic foot insection per H&P. Pt is not medically stable for discharge, anticipate 1-2 more days. Pt continues to be on IV abx during inpatient stay. Dr. Diaz has prescribed outpatient oral abx. SW followed up with pt to ensure access to abx after discharge. Pt does not anticipate barriers to obtaining outpt medications. Pt prefers [facility] in [place]. Pt has been staying at [facility] and SW anticipates pt to return there at discharge. Pt is enrolled in [facility] for counseling. Pt agreeable to plan. Social Work continues to follow. Assessment: Pt who is independent at base. Plan: Pt is not medically stable for discharge. Pt does not anticipate barriers to obtaining outpt medications. Pt has been staying at [facility] and SW anticipates pt to return there at discharge. Pt is enrolled in [facility] for counseling. Pt agreeable to plan. Social Work continues to follow. Silvia Horne, GRADES 9 12 TUTOR
[2017-01-08] MEDS: oxyCODONE-Acetamin 5-325 mg Tablet PO PRN ×3 (13:04→23:09)
[2017-01-08 13:55] VITALS: BP 108/54; PULSE 85; RESP 18; O2SAT 97
--- NOTE | 2017-01-08 15:40 | PCM.PNMED ---
Subjective Date of Service Jan 08, 2017 Subjective denies any new issues/complaints Exam Vital Signs Vital Sign - Last Date Time Temp Pulse Resp B/P Pulse Ox O2 Delivery O2 Flow Rate FiO2 01/08/17 13:55 36.7 85 18 108/54 97 Room Air 01/02/17 18:10 8 Intake and Output 01/07/17 01/07/17 01/08/17 Cumulative From/Thru 15:00 23:00 07:00 01/01/17 10:52 - 01/08/17 06:08 Intake Total 929 ml 960 ml 98359 ml Output Total 1110 ml 1025 ml 47889 ml Balance -181 ml -65 ml -1696 ml Intake Oral 240 ml 960 ml 50338 ml IV Total 689 ml 4951 ml Output Urine Total 1100 ml 1025 ml 83791 ml Estimated Blood Loss 10 ml 50 ml # Bowel Movements 0 4 Exam General: Alert, Cooperative, No Acute Distress Head: Normal Eyes: Scleral Anicteric Mouth: Mucous Membr Moist/[place] Neck: Supple Chest & Lungs: Chest Wall Normal, Clear to auscultation bilat Cardiovascular: Regular Rate/Rhythm Abdomen: Non-tender, Non-distended, Normoactive bowel tones, Soft Extremities: No cyanosis/clubbing/edema bilat, Other (left foot in dressing) Neurological: Grossly Neurologically Intact, Normal Speech IVs and Medications Medications Reviewed: Medications were reviewed in detail Lab and Diagnostics Result Diagram: 01/07/1761901/07/17619 X-Rays, CTs and MRIs XR foot IMPRESSION: 1. Osteoarthritis. 2. Chronic erosion involving the 1st digit. 3. No acute fracture nor acute osseous lesion. If symptoms and/or clinical suspicion for pathology persist, further assessment with repeat, or advanced imaging (e.g., CT, MRI, or bone scan) may be helpful for further assessment. Dictated by: Ann Dhillon M.D. on 01/01/2017 at 10:12 Additional Diagnostics Date of Service: Jan 02, 2017 Date of Service Jan 02, 2017 Pre Operative Diagnosis Osteomyelitis left distal phalanx of the great toe Post Operative Diagnosis Same as preoperative diagnoses Procedure Partial amputation of left great toe Assistants: None Indication for Procedure Osteomyelitis of left hallux distal phalanx Findings Osteomyelitis with significant softening of the distal phalanx, intact and healthy appearance of the left hallux proximal phalanx. Plantar lateral abscess of the distal left great toe with mild meredith purulent drainage Details of Procedure The patient was identified in the preoperative holding area. All preoperative comorbidities and allergies were identified and thoroughly discussed. The patient was transported into the operating room and placed on the operating room table in the normal supine position. The left lower extremity was identified as the appropriate extremity and was marked and a preoperative block consisting of 6 mL of half percent Marcaine plain was given around the base of the left hallux. The patient was then prepped and draped in the normal aseptic technique. Attention was first paid to the left hallux distal phalanx. Inspection of the plantar medial ulceration revealed a 100% fibrotic wound with extension to distal phalanx and notably softened bone. Inspection of the remainder of the left hallux revealed an additional left plantar distal phalanx ulceration with a mild amount of purulent drainage noted. The distal phalanx was compressed until all areolar drainage was expressed from the ulceration. A #10 blade was utilized to make a fishmouth style incision extending from the interphalangeal joint of the left great toe circumferentially encompassing the entirety of the distal phalanx. The left hallux distal phalanx was then excised in total at the level of the left hallux interphalangeal joint. This tissue was then sent for microbiology wound culture. This wound was then copiously flushed with large amounts of normal saline. No further purulent drainage was noted. A single 3. 0 Prolene retention stitch was placed and the wound was dressed with Betadine soaked gauze sterile 4 x 4 gauze Kerlix and an Miguel Angel bandage. The patient was awoken by anesthesia and transported out of the operating room. No complications occurred during this procedure. Plan of care will be to return to the operating room for wound flush debridement and primary closure next week. Grafts, Implants: None Complications There were no periprocedural complications identified. Assessment & Plan 51-year-old gentleman on his past medical history of type II diabetes, history of seizure disorder, schizophrenia, hyperlipidemia, history of substance and alcohol abuse was sent from urgent care due to left foot painful swelling and redness of 3 days. # MRSA Osteomyelitis distal phalanx left hallux, cellulitis left foot/Diabetic foot infection, acute, poa - s/p Partial amputation of left great toe 01/02/17. - s/p bedside debridement of left toe 01/01 . - Bone Probe consistent with osteomyelitis. - wound culture growing Group B Strept and MRSA . - MRSA sensitive to vancomycin and linezolid - Initially treated with Cefepime and vancomycin. Currently on Daptomycin - Appreciate ID and Podiatry consults. will f/u w/ recs. - continue with IV Dapto as long as he is here in the hospital - When he leaves continue 10 days of oral linezolid 600 mg p.o. b.i.d. # type 2 Dm, chronic, currently under control - Continue glipizide and metformin - Insulin sliding scale - HgA1C 9.1 #History of seizure disorder, chronic -Continue Keppra # History of alcoholic hepatitis with hyperammonemia -Ammonia 96 -Lactulose as needed #History of schizophrenia -[facility] #History of alcohol -says he is sober for a month now -watch out for withdrawal -alcohol level negative Dispo: 1-2 days pending podiatry clearance and clarifying social issues. VTE Mechanical Devices: Intermittant Pneumatic CD Time spent 25 min Shaq Iqbal Jan 08, 2017 15:40
[2017-01-08 19:59] VITALS: BP 131/79; PULSE 72; RESP 18; O2SAT 98
--- NOTE | 2017-01-09 03:45 | NUR ---
Pain Pt. reported pain earlier in shift. PO Oxycodone given. Pt. is now sleeping. Will continue to monitor.
[2017-01-09 04:58] VITALS: BP 112/74; PULSE 76; RESP 18; O2SAT 96
[2017-01-09] MEDS: oxyCODONE-Acetamin 5-325 mg Tablet PO PRN ×2 (05:16→09:21)
[2017-01-09] MEDS: hydrOXYzine Pamoate 25 mg Capsule PO PRN (05:21)
[2017-01-09 07:47] VITALS: BP 109/74; PULSE 68; RESP 18; O2SAT 93
[2017-01-09] MEDS: Multivit-Miner-Folic Acid-Iron Tablet PO SCH (07:55)
[2017-01-09] MEDS: Ascorbic Acid 500 mg Tablet PO SCH (07:56)
[2017-01-09] MEDS: Insulin LISPRO 300 Unit/3 mL Inj SUBQ SCH ×2 (07:57→12:02)
[2017-01-09] MEDS: DAPTOmycin Inj 500 MG in 0.9% Sodium Chloride 50 ML IV SCH (08:30)
[2017-01-09] MEDS ORDERED: LINE600T7 PO (12:30)
[2017-01-09] MEDS ORDERED: OXYC1TAB24 PO (12:30)
--- NOTE | 2017-01-09 12:43 | PCM.DIMED ---
Discharge Instructions Date of Service Jan 09, 2017 Dates of Hospitalization Jan 01, 2017 at 14:54 Discharge Diagnosis Discharge Diagnosis # MRSA Osteomyelitis distal phalanx left hallux, cellulitis left foot/Diabetic foot infection, acute and present on admission. - post partial amputation of left great toe 01/02/17. - post bedside debridement of left toe 01/01 - Bone Probe consistent with osteomyelitis. - wound culture growing Group B Strep and MRSA . - MRSA sensitive to vancomycin and linezolid # Pain control during this hospital and post hospitalization with opioid-based medication (Morphine during the hospital and Percocet on discharge) # type 2 diabetes mellitus, chronic, currently under control - HgA1C 9.1 # History of seizure disorder, chronic. stable. # History of alcoholic hepatitis with hyperammonemia. stable. #History of schizophrenia. stable. Diet Heart Healthy, Diabetic Activity Other (weight bearing to the heels bilaterally with limited activity) Call your provider Fever or Chills, Shortness of breath, Bleeding, Chest pain, Vomitting, Excessive diarrhea Patient Instructions Seek immediate medical attention if any new or worsening signs or symptoms occur. Follow-up plan 1. Followup with primary care provider in one week. 2. Followup with podiatry (Dr. Garduno covering for Dr. Roberson) on Friday01/13/17. Call or stop by the clinic to confirm appointment time [address] [address] Follow-up Provider: Kaela Daniel MD Follow-up with PCP in: 1 week Provider: Turner Roberson DPM Mid-level Provider (F9): Edmund Garduno DPM, Masoud Jan 09, 2017 12:43
--- NOTE | 2017-01-09 12:55 | NUR ---
Social Work Discharge: SW met with patient at bedside to discuss discharge plan. Patient states plan to return to [facility] at discharge. SW spoke to podiatry regarding insole for coordination of arrangements at discharge. Podiatry requests that patient follow up outpatient for insole on Friday. secretary to board of commissioners to arrange outpt appointment. Patient states he to coordinate taxi transport home via [employer] at discharge. Patient states having available funds. Patient denied any discharge needs at this time. SW will continue to follow PLAN: Return to [facility] with outpt follow up on Friday for david BENZ
--- NOTE | 2017-01-09 15:09 | NUR ---
Discharge Pt. discharged to [facility] via cab at 1430 in stable condition. Wearing surgical shoes. No IV. All belongings, scripts and instructions with pt. pt. aware of f/u appt. with Dr. Duggan. No questions or concerns at this time.
--- NOTE | 2017-01-09 16:09 | PCM.DC.MED ---
Discharge Summary Date of Service Jan 09, 2017 Dates of Hospitalization Date of Hospital Admission Jan 01, 2017 at 14:54 Date of Discharge: Jan 09, 2017 Providers: Admitting Physician: Miguel Ángel Ndiaye MD Primary Care Physician: Kaela Daniel MD Attending Physician: Miguel Ángel Ndiaye MD Diagnosis at Time of Discharge Diagnosis at Time of Discharge # MRSA Osteomyelitis distal phalanx left hallux, cellulitis left foot/Diabetic foot infection, acute and present on admission. - post partial amputation of left great toe 01/02/17. - post bedside debridement of left toe 01/01 - Bone Probe consistent with osteomyelitis. - wound culture growing Group B Strep and MRSA . - MRSA sensitive to vancomycin and linezolid # Pain control during this hospital and post hospitalization with opioid-based medication (Morphine during the hospital and Percocet on discharge) # type 2 diabetes mellitus, chronic, currently under control - HgA1C 9.1 # History of seizure disorder, chronic. stable. # History of alcoholic hepatitis with hyperammonemia. stable. #History of schizophrenia. stable. Consultations 1. Podiatry 2. ID Procedures XRay, CTs & MRIs XR foot IMPRESSION: 1. Osteoarthritis. 2. Chronic erosion involving the 1st digit. 3. No acute fracture nor acute osseous lesion. If symptoms and/or clinical suspicion for pathology persist, further assessment with repeat, or advanced imaging (e.g., CT, MRI, or bone scan) may be helpful for further assessment. Dictated by: Ann Dhillon M.D. on 01/01/2017 at 10:12 Other Diagnostics Date of Service: Jan 02, 2017 Date of Service Jan 02, 2017 Pre Operative Diagnosis Osteomyelitis left distal phalanx of the great toe Post Operative Diagnosis Same as preoperative diagnoses Procedure Partial amputation of left great toe Assistants: None Indication for Procedure Osteomyelitis of left hallux distal phalanx Findings Osteomyelitis with significant softening of the distal phalanx, intact and healthy appearance of the left hallux proximal phalanx. Plantar lateral abscess of the distal left great toe with mild meredith purulent drainage Details of Procedure The patient was identified in the preoperative holding area. All preoperative comorbidities and allergies were identified and thoroughly discussed. The patient was transported into the operating room and placed on the operating room table in the normal supine position. The left lower extremity was identified as the appropriate extremity and was marked and a preoperative block consisting of 6 mL of half percent Marcaine plain was given around the base of the left hallux. The patient was then prepped and draped in the normal aseptic technique. Attention was first paid to the left hallux distal phalanx. Inspection of the plantar medial ulceration revealed a 100% fibrotic wound with extension to distal phalanx and notably softened bone. Inspection of the remainder of the left hallux revealed an additional left plantar distal phalanx ulceration with a mild amount of purulent drainage noted. The distal phalanx was compressed until all areolar drainage was expressed from the ulceration. A #10 blade was utilized to make a fishmouth style incision extending from the interphalangeal joint of the left great toe circumferentially encompassing the entirety of the distal phalanx. The left hallux distal phalanx was then excised in total at the level of the left hallux interphalangeal joint. This tissue was then sent for microbiology wound culture. This wound was then copiously flushed with large amounts of normal saline. No further purulent drainage was noted. A single 3. 0 Prolene retention stitch was placed and the wound was dressed with Betadine soaked gauze sterile 4 x 4 gauze Kerlix and an Miguel Angel bandage. The patient was awoken by anesthesia and transported out of the operating room. No complications occurred during this procedure. Plan of care will be to return to the operating room for wound flush debridement and primary closure next week. Grafts, Implants: None Complications There were no periprocedural complications identified. Brief History 51-year-old gentleman on his past medical history of type II diabetes, history of seizure disorder, schizophrenia, hyperlipidemia, history of substance and alcohol abuse was sent from urgent care due to left foot painful swelling and redness of 3 days. Hospital Course # MRSA Osteomyelitis distal phalanx left hallux, cellulitis left foot/Diabetic foot infection, acute, poa - s/p Partial amputation of left great toe 01/02/17. - s/p bedside debridement of left toe 01/01 . - Bone Probe consistent with osteomyelitis. - wound culture growing Group B Strep and MRSA . - MRSA sensitive to vancomycin and linezolid - Initially treated with Cefepime and vancomycin. Currently on Daptomycin - Appreciate ID and Podiatry consults. will f/u w/ recs. - continue with IV Dapto as long as he is here in the hospital - When he leaves continue 10 days of oral linezolid 600 mg p.o. b.i.d. - f/u w/ podiatry as noted below # type 2 Dm, chronic, currently under control - Continue glipizide and metformin - HgA1C 9.1 #History of seizure disorder, chronic -Continue Keppra # History of alcoholic hepatitis with hyperammonemia - Ammonia 96 - no noted encephalopathy during this hospital # History of schizophrenia - Follows at [facility] # History of alcohol -says he is sober for a month now -watch out for withdrawal -alcohol level negative Dispo: 1-2 days pending podiatry clearance and clarifying social issues. Exam Vital Signs (Last) Date Time Temp Pulse Resp B/P Pulse Ox O2 Delivery O2 Flow Rate FiO2 01/09/17 07:47 68 18 109/74 93 Room Air 01/09/17 04:58 36.5 Test 01/01/17 11:50 01/02/17 06:10 01/04/17 05:55 01/06/17 10:05 Prothrombin Time 11.4sec (8.1-12.5) Prothromb Time International Ratio 1.06ratio Lactic Acid Level 2.2mmol/L (0.4-2.0) Ammonia 96ug/dL (18-53) Alcohol, Quantitative < 10mg/dL (0-10) Hemoglobin A1c 9.1% (4.8-5.6) Magnesium Level 1.7mg/dL (1.6-2.6) Total Bilirubin 0.2mg/dL (0.0-1.2) Aspartate Amino Transf (AST/SGOT) 37U/L (0-50) Alanine Aminotransferase (ALT/SGPT) 38U/L (0-44) Alkaline Phosphatase 84U/L (25-150) Total Protein 6.3g/dL (6.4-8.4) Albumin 3.1g/dL (3.4-5.0) Vancomycin Level Trough 13.5mcg/mL Test 01/07/17 06:20 White Blood Count 5.7th/mm3 (3.8-10.1) Red Blood Count 4.33mil/mm3 (4.40-5.80) Hemoglobin 13.5g/dL (13.8-17.2) Hematocrit 39.8% (41.0-50.0) Mean Corpuscular Volume 91.9fL (81-100) Mean Corpuscular Hemoglobin 31.2pg (27.0-35.0) Mean Corpuscular Hemoglobin Concent 33.9% (32.0-37.0) Red Cell Distribution Width 13.4% (12.3-15.4) Platelet Count 167bil/L (150-400) Neutrophils (%) (Auto) 58.3% (40-74) Lymphocytes (%) (Auto) 19.6% (14-46) Monocytes (%) (Auto) 14.2% (4-12) Eosinophils (%) (Auto) 6.1% (0-5) Basophils (%) (Auto) 0.9% (0-3) Sodium Level 137mEq/L (134-144) Potassium Level 4.2mEq/L (3.5-5.2) Chloride Level 105mEq/L (97-108) Carbon Dioxide Level 18mmol/L (18-29) Blood Urea Nitrogen 8mg/dL (6-24) Creatinine 0.44mg/dL (0.76-1.27) Estimat Glomerular Filtration Rate 217mL/min (>59) Glucose Level 149mg/dL (60-99) Calcium Level 8.5mg/dL (8.5-10.1) Discharge Medications Discharge Medications Ascorbic Acid (Vitamin C) 1,000 Mg Tab.chew 1,000 MG PO DAILY (Reported) Gabapentin (Gabapentin) 600 Mg Tablet 600 MG PO BID (Reported) Glipizide (Glipizide) 5 Mg Tablet 5 MG PO BIDWM Prescribed by: JORDAN WICK DO Levetiracetam (Keppra) 250 Mg Tablet 250 MG PO BID (Reported) Linezolid (Linezolid) 600 Mg Tablet 600 MG PO BID Prescribed by: FRANSISCO VIDAL MD Metformin (Metformin) 500 Mg Tablet 1,000 MG PO BID (Reported) Milk Thistle Seed Extract (Milk Thistle) 140 Mg Capsule Unknown Dose PO DAILY ( Reported) Turmeric Root Extract (Turmeric) 500 Mg Capsule Unknown Dose PO DAILY (Reported ) Vit B Comp/C/FA/Iron/Vit E (Vitamin B Complex Tablet) 1 Each Tablet 1 EACH PO DAILY (Reported) As needed hydrOXYzine Hcl (HydrOXYzine Hcl) 25 Mg Tablet 25 MG PO TID PRN PRN For Itching Prescribed by: JORDAN WICK DO oxyCODONE-Acetaminophen 5-325 mg (oxyCODONE-Acetaminophen 5-325 mg) 1 Each Tablet 1-2 TAB PO Q4H PRN PRN For Pain Prescribed by: FRANSISCO VIDAL MD Followup Plan Disposition: Home Follow-up plan 1. Followup with primary care provider in one week. 2. Followup with podiatry (Dr. Garduno covering for Dr. Roberson) on Friday01/13/17. Call or stop by the clinic to confirm appointment time [address] [id number] Discharge Diet: Heart Healthy, Diabetic Discharge Activity: Other (weight bearing to the heels bilaterally with limited activity) Patient Instructions Seek immediate medical attention if any new or worsening signs or symptoms occur. Follow-up Provider: Kaela Daniel MD Follow-up with PCP in: 1 week Provider: Turner Roberson DPM Mid-level Provider: Edmund Garduno DPM Time spent 35 min copies to: Edmund Garduno DPM; Kaela Daniel MD; Turner Roberson DPM, Masoud Jan 09, 2017 16:09
--- NOTE | 2017-01-09 16:45 | NUR ---
Social Work Continued Planning: SHAHNAZ contacted [facility] pharmacy, to discuss concerns with Linezolid oral prescription. Per pharmacist rep Snow, medication requires prior auth. SHAHNAZ contacted prior auth department, [phone] and obtained approval. Auth claim report: Auth: [id number] contacted pharmacy and auth claim obtained and medication approved. Patient at pharmacy and to obtain medication. No other needs. notified Mu BENZ
== END 2017-01-09 14:36 | disposition home or self-care (01) | DRG 617 ==
LOC: SED 10:46 → OSC 14:54
PROVIDERS: ADMIT Internal Medicine; ATTEND Internal Medicine
PROC: 0JBR0ZZ Excision of Left Foot Subcutaneous Tissue and Fascia, Open Approach (ICD-10-PCS; 2017-01-01)
PROC: 0Y6Q0Z3 Detachment at Left 1st Toe, Low, Open Approach (ICD-10-PCS; 2017-01-02)
PROC: 0JBQ0ZZ Excision of Right Foot Subcutaneous Tissue and Fascia, Open Approach (ICD-10-PCS; 2017-01-07)
PROC: 0JBR0ZZ Excision of Left Foot Subcutaneous Tissue and Fascia, Open Approach (ICD-10-PCS; principal; 2017-01-07 17:00)
DX: E11.69 Type 2 diabetes mellitus with other specified complication (principal); M86.672 Other chronic osteomyelitis, left ankle and foot; E72.20 Disorder of urea cycle metabolism, unspecified; L03.032 Cellulitis of left toe; E11.40 Type 2 diabetes mellitus with diabetic neuropathy, unspecified; E11.65 Type 2 diabetes mellitus with hyperglycemia; Z59.0 Homelessness; Z88.0 Allergy status to penicillin; Z79.84 Long term (current) use of oral hypoglycemic drugs; G40.909 Epilepsy, unspecified, not intractable, without status epilepticus; K70.10 Alcoholic hepatitis without ascites; F20.9 Schizophrenia, unspecified; E78.5 Hyperlipidemia, unspecified; K70.30 Alcoholic cirrhosis of liver without ascites; F10.21 Alcohol dependence, in remission; I45.81 Long QT syndrome; F17.210 Nicotine dependence, cigarettes, uncomplicated; B96.89 Other specified bacterial agents as the cause of diseases classified elsewhere; B95.62 Methicillin resistant Staphylococcus aureus infection as the cause of diseases classified elsewhere; E11.621 Type 2 diabetes mellitus with foot ulcer; L97.519 Non-pressure chronic ulcer of other part of right foot with unspecified severity

== ENCOUNTER 2017-01-27 13:35 | Emergency (ER) | payer MEDICARE, MEDICAID ==
[~2017-01-27] VITALS: Ht 170.2 cm; Wt 79.5 kg
[~2017-01-27 13:35] MED LIST changes: +KEPP250T PO; +LINE600T7 PO; -OMEP40CA36 PO; +OXYC1TAB24 PO; -RIFA550T3 PO
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
[2017-01-27 14:14] VITALS: BP 169/101; PULSE 111; RESP 14; O2SAT 100
[2017-01-27] MEDS ORDERED: Nystatin 100,000 Unit/Gm 15 Gm Powder TOPICAL ONE (17:10)
[2017-01-27 17:22] LABS: BASOPHILS % (AUTO) 0.4 % (0-3); EOSINOPHILS % (AUTO) 3.2 % (0-5); MONOCYTES % (AUTO) 10.1 % (4-12); Mean Corpuscular Hemoglobin 30.3 pg (27.0-35.0); Mean Corpuscular Volume 85.5 fL (81-100); NEUTROPHILS % (AUTO) 70.5 % (40-74); Platelet Count 127 bil/L (150-400)
[2017-01-27] MEDS ORDERED: LORazepam 2 mg Tablet PO ONE (17:55)
[2017-01-27 18:49] VITALS: BP 142/105; PULSE 104; RESP 15; O2SAT 96
[2017-01-27 20:12] LABS: APPEARANCE,URINE CLEAR (CLEAR,HAZY); COLOR,URINE YELLOW (YELLOW); PH,URINE 6.5 (5.0-8.0)
[2017-01-27 20:13] LABS: OCCULT BLOOD,URINE NEGATIVE (NEGATIVE); UROBILINOGEN,URINE NORMAL (NORMAL)
[2017-01-27 22:00] VITALS: BP 150/85; PULSE 110; RESP 22; O2SAT 97
== END 2017-01-27 22:20 | disposition home or self-care (01) ==
LOC: EDSEX 13:35 → EDBD 13:35 → SED 13:35
DX: F10.129 Alcohol abuse with intoxication, unspecified (principal); B35.6 Tinea cruris; F17.200 Nicotine dependence, unspecified, uncomplicated; E11.40 Type 2 diabetes mellitus with diabetic neuropathy, unspecified; E78.5 Hyperlipidemia, unspecified; F20.9 Schizophrenia, unspecified; Z88.0 Allergy status to penicillin; Z88.8 Allergy status to other drugs, medicaments and biological substances; Z79.84 Long term (current) use of oral hypoglycemic drugs

== ENCOUNTER 2017-01-28 12:44 | Emergency (ER) | payer MEDICARE, MEDICAID ==
[~2017-01-28] VITALS: Ht 182.9 cm; Wt 75.0 kg
[2017-01-28 12:55] VITALS: BP 161/99; PULSE 96; RESP 16; O2SAT 96
--- NOTE | 2017-01-28 14:19 | ED.REPORT ---
HPI-Overdose/Alcohol Toxicity Date of Service Jan 28, 2017 ED Provider: Miquel Arellano PA-C 51-year-old male with a history of alcohol abuse, schizophrenia, DM 2, neuropathy presents via EMS after being found in the street, incontinent of feces and urine. Alcohol intoxication suspected. Patient reports he drinks too much alcohol to deal with the pain in his legs which she states is due to neuropathy. He also complains of a painful rash in his crotch. Patient states that he is homeless. Seen for similar complaint in this department yesterday. Interested in getting a better crisis respite. Patient states that he recently fired his PCP. Nursing Notes Stated Complaint: INTOXICATED Chief Complaint: Substance Abuse Nursing Notes Reviewed: Yes Allergies: Coded Allergies: Penicillins (Verified Allergy, Severe, Anaphylaxis, 01/28/17) enoxaparin (Verified Allergy, Intermediate, aggitation, 01/28/17) Tetanus Vaccines and Toxoid (Verified Allergy, Unknown, Shortness of Breath, 01/28/17) Scheduled Ascorbic Acid (Vitamin C) 1,000 Mg Tab.chew 1,000 MG PO DAILY Gabapentin (Gabapentin) 600 Mg Tablet 600 MG PO BID Glipizide (Glipizide) 5 Mg Tablet 5 MG PO BIDWM Levetiracetam (Keppra) 250 Mg Tablet 250 MG PO BID Linezolid (Linezolid) 600 Mg Tablet 600 MG PO BID Metformin (Metformin) 500 Mg Tablet 1,000 MG PO BID Milk Thistle Seed Extract (Milk Thistle) 140 Mg Capsule Unknown Dose PO DAILY Turmeric Root Extract (Turmeric) 500 Mg Capsule Unknown Dose PO DAILY Vit B Comp/C/FA/Iron/Vit E (Vitamin B Complex Tablet) 1 Each Tablet 1 EACH PO DAILY Scheduled PRN hydrOXYzine Hcl (HydrOXYzine Hcl) 25 Mg Tablet 25 MG PO TID PRN PRN For Itching oxyCODONE-Acetaminophen 5-325 mg (oxyCODONE-Acetaminophen 5-325 mg) 1 Each Tablet 1-2 TAB PO Q4H PRN PRN For Pain General Time Seen by Provider: 13:29 Chief Complaint Intoxicated, alcohol Past Medical History Past Medical History H/o workup for seizures (negative EEG, was previously on Keppra, discontinued by neurology-see their consultation from February 2015) Admit 02/2015 - ETOH/GI Bleed (intubated) Alcoholic liver cirrhosis with a hx of encephalopathy Schizophrenia Diabetes Mellitus, type 2 with neuropathy Hyperlipidemia Active visual hallucinations History of violent behavior with [facility] time served for assault History of substance abuse Thrombocytopenia Leukopenia Hyperammonemia Neuropathy in legs Reports: Gastritis Past Surgical History EGD on 02/28/2015 - revealed Ulcerative vs monilial esophagitis and Hypertensive portal gastropathy toe surgery Family History Noncontributory Smoking History Current Every Day Smoker Social History Patient has a long-standing history of alcoholism Alcohol Use: In recovery Drug Use: THC Other Social History: Poor social support, Local resident, Homeless Ambulatory Status Independent Review of Systems General: Denies fever, chills, malaise. HEENT: Denies congestion, headache, sore throat. Respiratory: Denies dyspnea, cough, shortness of breath, wheezing. Cardiovascular: Denies chest pain, palpitations. Gastrointestinal: Denies vomiting, diarrhea, abdominal pain. Genitourinary: Denies frequency, urgency, dysuria, hematuria. Otherwise as noted in HPI. Physical Exam General: Well developed, well nourished, moderate distress, labile, disheveled. Dressed in hospital gown. Head: Atraumatic, normocephalic. Eyes: No scleral icterus or injection. No discharge. Vision grossly intact. ENT: Voice clear, hearing grossly intact. Respiratory: Regular rate and rhythm. Breath sounds present, clear to auscultation and equal bilaterally. No respiratory distress. No increased work of breathing, speaks in complete sentences. Cardiovascular: Regular rate and rhythm, without murmur, gallop or rub. No pedal edema. Gastrointestinal: Abdomen flat and non-tender without guarding or rebound. Bowel sounds normoactive. Skin: Warm and dry. 6 cm red, raised lesion and several satellite lesions on the medial upper thigh and lower abdomen. Mild excoriation. Nontender. Left foot: Distal first toe surgically amputated. Several small abrasions over the DIP joints. No indication of infection or nonhealing wounds. Right foot: Several small abrasions over the DIP joints. No indication of infection or nonhealing wounds. Neurological: Grossly nonfocal. Psychological: Alert and oriented. Speech appropriate, linear and logical at times. He does have episodes where he talks about having extraordinary psychiatric abilities, and reports an ability to predict which card will be drawn from a shuffled deck. Extremely Dramatic. Initial Vital Signs Vital Signs (First) Date Time Temp Pulse Resp B/P Pulse Ox O2 Delivery O2 Flow Rate FiO2 01/28/17 12:55 36.1 96 16 161/99 96 Room Air Initial VS: Reviewed, Vital signs normal Re-Eval/Medical Decision Med Decision/Clinical Course History of male history of alcohol abuse and schizophrenia is brought to the emergency department by EMS after being found in the street incontinent of urine and feces. Presumed alcohol intoxication. He was seen for similar complaint last night in this department. Express interest in being admitted to crisis senior living. Physical examination is unremarkable. Labs from last night are unremarkable. This point I do not see an indication to repeat them. Patient's JEREMY is 0.240. I believe this is alcohol intoxication, and I have little suspicion for electrolyte imbalance, hypoglycemia. I concur with a previous diagnosis of tinea cruris for his rash. I do not believe this is likely a bacterial intertrigo or Erythrasma. Patient meets with HVAC MAINTENANCE TECHNICIAN and arranges admission to crisis senior living. That will be made available at approximately 0100 hrs. tomorrow. Administer 2 mg of Ativan when the patient appears tremulous. Patient feels significantly improved shortly afterwards and wishes to be discharged to home. I feel he is competent to make this decision as he is ambulating and speaking acceptably. Denies suicidal ideation. I discussed this with Dr. Parisi who met with with the patient and agrees. I advised him to continue the treatment prescribed last night for his tinea cruris. Patient is discharged home with referral for primary care follow-up and return precautions. Discharge & Departure Impression: Primary Impression: Alcohol intoxication Complication of substance-induced condition: uncomplicated Qualified Code: F10.120 - Alcohol abuse with intoxication, uncomplicated Additional Impression: Tinea cruris )( Condition at Discharge: No danger to self, No danger to others, No suicidal ideation, No homicidal ideation Disposition: Home Discharge Condition All VS Reviewed: Yes Condition: Stable Patient Instructions: Abuse of Alcohol (ED) Additional Instructions: Evaluation in the emergency department for alcohol intoxication. We were able to arrange a bed at [facility] for you, however you feel that you would rather be discharged home at this point. This is a choice you are free to make. I will provide a referral for primary care follow-up. Return to emergency department for any new or worsening symptoms including chest pain, shortness of breath. Referrals: NOPCP (PCP) [facility]vising Provider for APC: Lino Parisi MD Attending Statement I discussed patient with BUDDY Arellano. I saw and evaluated patient independently. In brief, 51-year-old male with alcohol intoxication. He is observed for several hours and sobered up. He was an voiding without any difficulty and was at his baseline status discharged home in good condition. Return precautions given. Miquel Arellano PA-C Jan 28, 2017 14:19 Lino Parisi MD Jan 28, 2017 18:17
[2017-01-28] MEDS ORDERED: LORazepam 2 mg Tablet PO ONE (16:40)
[2017-01-29] MEDS ORDERED: CLOT60CR TP (15:30)
== END 2017-01-28 17:02 | disposition home or self-care (01) ==
LOC: EDUNIT# 12:44 → EDBD 12:44 → SED 12:44
DX: F10.120 Alcohol abuse with intoxication, uncomplicated (principal); B35.6 Tinea cruris; R15.9 Full incontinence of feces; R32 Unspecified urinary incontinence; E11.40 Type 2 diabetes mellitus with diabetic neuropathy, unspecified; E78.5 Hyperlipidemia, unspecified; F20.9 Schizophrenia, unspecified; F17.200 Nicotine dependence, unspecified, uncomplicated; Z59.0 Homelessness; Z79.84 Long term (current) use of oral hypoglycemic drugs; Z88.0 Allergy status to penicillin; Z88.7 Allergy status to serum and vaccine; Z88.8 Allergy status to other drugs, medicaments and biological substances

== ENCOUNTER 2017-01-28 22:38 | Emergency (ER) | payer MEDICARE, MEDICAID ==
[~2017-01-28] VITALS: Ht 182.9 cm; Wt 79.5 kg
[2017-01-28 22:51] VITALS: BP 142/81; PULSE 101; RESP 18; O2SAT 96
--- NOTE | 2017-01-28 22:51 | ED.REPORT ---
HPI-General Illness Date of Service Jan 28, 2017 ED Provider: Abiodun Henao MD Pt is a 51 y.o. male with a history of ETOH abuse, schizophrenia, DM, and neuropathy who presents to the ED via EMS and Police after being found in the street, incontinent of feces and urine. Pt endorses to ETOH use and denies drug use. Pt has been seen in the ED twice since yesterday for ETOH use and a painful rash in his crotch, for which he was treated. Pt [facility] earlier [facility], upon discharge he refused to go. Upon examination pt is shouting "discharge me" and shows clinical signs of intoxication. Police state pt is unable to care for himself. Nursing Notes Stated Complaint: GROIN RASH, ALCOHOL Chief Complaint: Psychiatric Complaint Nursing Notes Reviewed: Yes Allergies: Coded Allergies: Penicillins (Verified Allergy, Severe, Anaphylaxis, 01/28/17) enoxaparin (Verified Allergy, Intermediate, aggitation, 01/28/17) Tetanus Vaccines and Toxoid (Verified Allergy, Unknown, Shortness of Breath, 01/28/17) Scheduled Ascorbic Acid (Vitamin C) 1,000 Mg Tab.chew 1,000 MG PO DAILY Gabapentin (Gabapentin) 600 Mg Tablet 600 MG PO BID Glipizide (Glipizide) 5 Mg Tablet 5 MG PO BIDWM Levetiracetam (Keppra) 250 Mg Tablet 250 MG PO BID Linezolid (Linezolid) 600 Mg Tablet 600 MG PO BID Metformin (Metformin) 500 Mg Tablet 1,000 MG PO BID Milk Thistle Seed Extract (Milk Thistle) 140 Mg Capsule Unknown Dose PO DAILY Turmeric Root Extract (Turmeric) 500 Mg Capsule Unknown Dose PO DAILY Vit B Comp/C/FA/Iron/Vit E (Vitamin B Complex Tablet) 1 Each Tablet 1 EACH PO DAILY Scheduled PRN hydrOXYzine Hcl (HydrOXYzine Hcl) 25 Mg Tablet 25 MG PO TID PRN PRN For Itching oxyCODONE-Acetaminophen 5-325 mg (oxyCODONE-Acetaminophen 5-325 mg) 1 Each Tablet 1-2 TAB PO Q4H PRN PRN For Pain General Time Seen by MD: 22:50 Chief Complaint Other (ETOH use) Hx Obtained From: Patient, EMS, Police Unable to Obtain Hx: Patient condition, Intoxicated Arrived By: Ambulance, Police Sudden in Onset?: Yes Onset Occurred: Just prior to arrival Context of Onset: EtOH use Symptom Duration: Since onset Past Medical History Past Medical History H/o workup for seizures (negative EEG, was previously on Keppra, discontinued by neurology-see their consultation from February 2015) Admit 02/2015 - ETOH/GI Bleed (intubated) Alcoholic liver cirrhosis with a hx of encephalopathy Schizophrenia Diabetes Mellitus, type 2 with neuropathy Hyperlipidemia Active visual hallucinations History of violent behavior with detention time served for assault History of substance abuse Thrombocytopenia Leukopenia Hyperammonemia Neuropathy in legs Reports: Gastritis Past Surgical History EGD on 02/28/2015 - revealed Ulcerative vs monilial esophagitis and Hypertensive portal gastropathy toe surgery Family History Noncontributory Smoking History Current Every Day Smoker Social History Patient has a long-standing history of alcoholism Alcohol Use: In recovery Drug Use: THC Other Social History: Poor social support, Local resident, Homeless Ambulatory Status Independent Review of Systems Intoxicated Failure to thrive Unable to Obtain ROS Patient condition, Intoxicated Full Review of Systems Psychiatric: Reports: Agitation Complete sys rev & neg: except as marked. Physical Exam Vital Signs Vital Signs Date Time Temp Pulse Resp B/P Pulse Ox O2 Delivery O2 Flow Rate FiO2 01/29/17 03:30 114 22 173/110 99 Room Air 01/28/17 22:51 37.1 101 18 142/81 96 Room Air Initial VS: Reviewed Abdomen / GI: No distention Extremities: Vascular intact, Neuro intact Skin: Warm, Dry, No cyanosis General/Constitutional: Awake, Alert Appearance / Presentation: Positive: Hygiene poor, Intoxicated Pt's hospital gown is covered in feces Head / Eyes: Atraumatic, Normocephalic Respiratory / Chest: Atraumatic, Breath sounds NL, No respiratory distress Cardiovascular: Heart rate NL, Heart sounds NL, Peripheral circulation NL Neurologic: Oriented X3 Gait Abnormality: Positive: Staggering gait Broad based, staggering gait. Interpretation & Diagnostics Lab Results Interpretation Result Diagram: 01/29/17 0005 01/29/17 0005 Test 01/29/17 00:05 White Blood Count 8.2th/mm3 (3.8-10.1) Red Blood Count 5.02mil/mm3 (4.40-5.80) Hemoglobin 15.2g/dL (13.8-17.2) Hematocrit 43.3% (41.0-50.0) Mean Corpuscular Volume 86.3fL (81-100) Mean Corpuscular Hemoglobin 30.3pg (27.0-35.0) Mean Corpuscular Hemoglobin Concent 35.1% (32.0-37.0) Red Cell Distribution Width 14.6% (12.3-15.4) Platelet Count 99bil/L (150-400) Neutrophils (%) (Auto) 61.5% (40-74) Lymphocytes (%) (Auto) 22.4% (14-46) Monocytes (%) (Auto) 10.7% (4-12) Eosinophils (%) (Auto) 4.9% (0-5) Basophils (%) (Auto) 0.4% (0-3) Sodium Level 139mEq/L (134-144) Potassium Level 3.8mEq/L (3.5-5.2) Chloride Level 99mEq/L (97-108) Carbon Dioxide Level 24mmol/L (18-29) Blood Urea Nitrogen 8mg/dL (6-24) Creatinine 0.52mg/dL (0.76-1.27) Estimat Glomerular Filtration Rate 179mL/min (>59) Glucose Level 253mg/dL (60-99) Calcium Level 8.3mg/dL (8.5-10.1) Total Bilirubin 1.2mg/dL (0.0-1.2) Aspartate Amino Transf (AST/SGOT) 47U/L (0-50) Alanine Aminotransferase (ALT/SGPT) 33U/L (0-44) Alkaline Phosphatase 99U/L (25-150) Total Protein 8.0g/dL (6.4-8.4) Albumin 4.1g/dL (3.4-5.0) Thyroid Stimulating Hormone (TSH) 1.080uIU/mL (0.450-4.500) Hold Fermin Top Tube Received (Received) Drug Screen / Level Interp Urine drug screen neg Re-Eval/Medical Decision Med Decision/Clinical Course 51-year-old with recurrent presentations with intoxication and psychosis, presents in police custody after lying down in traffic, as has been his pattern in the past. He is intoxicated and uncooperative and in fact combative. No coherent history is available from him. Police provide an affidavit describing his behavior in the field and brought him for evaluation. He required ketamine to get him down enough to get his clothes off and clean him from his incontinence. He ultimately required Haldol and Ativan as the ketamine wore off and he became combative and confrontational again. He has been metabolizing off his alcohol and sedation and at this point is becoming more awake, and now awaits psychiatric evaluation this morning on arrival of the social service staff. Signed out of [address] Eubanks. Source of Hx: Old records Time of Eval: 00:25 Re-Evaluation/Progress Note: Pt rechecked. Pt is moaning and asleep. Respiring well. Counseled Regarding: Diagnosis Discharge & Departure Shift Change Sign-Out Patient Care Transferred: Yes (Dr. Eubanks) Discussed Complaint(s): Yes Laboratory Evaluation: Lab evaluation discussed Response to Therapy: Improved Primary Impression: Alcohol intoxication Additional Impressions: Alcohol abuse Psychosis Tinea cruris Discharge Condition All VS Reviewed: Yes Referrals: NOPCP (PCP) [facility] Care Transferred to: Dr. Eubanks Care Transferred at: 06:00 Hollis Attestation Portions of this note were transcribed by Rosalino Lopes. I, Dr. Henao personally performed the history, physical exam and medical decision-making; I reviewed and confirmed the accuracy of the information in the transcribed note. Signed by: Hollis Delgadillo, 01/29/17 and 2523. copies to: [facility] Abiodun Henao MD Jan 28, 2017 22:51 ROSALINO LOPES Jan 28, 2017 22:58
[2017-01-28] MEDS ORDERED: Ketamine 100 mg/mL 5 mL Inj ONE (23:25)
[2017-01-28] MEDS ORDERED: Ketamine 100 mg/mL 5 mL Inj IM ONE (23:25)
[2017-01-29 00:12] LABS: BASOPHILS % (AUTO) 0.4 % (0-3); EOSINOPHILS % (AUTO) 4.9 % (0-5); MONOCYTES % (AUTO) 10.7 % (4-12); Mean Corpuscular Hemoglobin 30.3 pg (27.0-35.0); Mean Corpuscular Volume 86.3 fL (81-100); NEUTROPHILS % (AUTO) 61.5 % (40-74); Platelet Count 99 bil/L (150-400)
[2017-01-29] MEDS ORDERED: Haloperidol 5 mg/mL Inj ONE (02:06)
[2017-01-29] MEDS ORDERED: Ketamine 100 mg/mL 5 mL Inj IM ONE (02:30)
[2017-01-29] MEDS ORDERED: Haloperidol 5 mg/mL Inj IM ONE (02:30)
[2017-01-29 03:30] VITALS: BP 173/110; PULSE 114; RESP 22; O2SAT 99
[2017-01-29 10:09] VITALS: BP 140/88; PULSE 120; O2SAT 94
[2017-01-29] MEDS ORDERED: LORazepam 2 mg Tablet PO ONE ×2 (11:40→13:10)
[2017-01-29] MEDS ORDERED: CLOT60CR TP (15:30)
[2017-01-29 15:52] VITALS: BP 131/69; PULSE 84; RESP 16; O2SAT 98
== END 2017-01-29 15:53 | disposition home or self-care (01) ==
LOC: EDBD 22:38 → SED 22:38
DX: F10.220 Alcohol dependence with intoxication, uncomplicated (principal); F20.9 Schizophrenia, unspecified; B35.6 Tinea cruris; E11.40 Type 2 diabetes mellitus with diabetic neuropathy, unspecified; E78.5 Hyperlipidemia, unspecified; F17.200 Nicotine dependence, unspecified, uncomplicated; Z59.0 Homelessness; Z79.84 Long term (current) use of oral hypoglycemic drugs; Z88.0 Allergy status to penicillin; Z88.8 Allergy status to other drugs, medicaments and biological substances; Z88.7 Allergy status to serum and vaccine
CPT/HCPCS: 36415; 80053; 81002; 82075; 84443; 85025; 96372; 99285; J1630; J2060

== ENCOUNTER 2017-02-01 21:52 | Emergency (ER) | payer MEDICARE, MEDICAID ==
[~2017-02-01] VITALS: Ht 170.2 cm; Wt 80.0 kg
[~2017-02-01 21:52] MED LIST changes: +CLOT60CR TP
[2017-02-01 21:58] VITALS: BP 158/91; PULSE 102; RESP 16; O2SAT 99
--- NOTE | 2017-02-01 22:16 | ED.REPORT ---
HPI-Extremity Problem Lower Date of Service Feb 01, 2017 ED Provider: Dr. Abiodun Henao M.D. A 51 year old male with a medical history including alcohol abuse, liver cirrhosis, schizophrenia, diabetes, and peripheral neuropathy presents to the ED with chronic bilateral foot pain (L>R) worsening over the past three days. The pain is diffuse and described as "burning." The patient denies other symptoms at this time. He was seen in the ED on 01/28/17 with alcohol intoxication and psychosis, and was subsequently discharged to the crisis center where he is currently staying. Nursing Notes Stated Complaint: PAIN IN BOTH FEET/PARTIAL AMPUTEE Chief Complaint: Extremity Trauma Nursing Notes Reviewed: Yes Allergies: Coded Allergies: Penicillins (Verified Allergy, Severe, Anaphylaxis, 01/28/17) enoxaparin (Verified Allergy, Intermediate, aggitation, 01/28/17) Tetanus Vaccines and Toxoid (Verified Allergy, Unknown, Shortness of Breath, 01/28/17) Scheduled Amitriptyline (Amitriptyline) 25 Mg Tab 25 MG PO HS Ascorbic Acid (Vitamin C) 1,000 Mg Tab.chew 1,000 MG PO DAILY Capsaicin (Capsaicin) 42.5 Gm Cream..g. 42.5 GM TP HS Clonazepam (Clonazepam) 1 Mg Tablet 1 MG PO HS Gabapentin (Gabapentin) 600 Mg Tablet 600 MG PO BID Glipizide (Glipizide) 5 Mg Tablet 5 MG PO BIDWM Levetiracetam (Keppra) 250 Mg Tablet 250 MG PO BID Linezolid (Linezolid) 600 Mg Tablet 600 MG PO BID Metformin (Metformin) 500 Mg Tablet 1,000 MG PO BID Milk Thistle Seed Extract (Milk Thistle) 140 Mg Capsule Unknown Dose PO DAILY Turmeric Root Extract (Turmeric) 500 Mg Capsule Unknown Dose PO DAILY Vit B Comp/C/FA/Iron/Vit E (Vitamin B Complex Tablet) 1 Each Tablet 1 EACH PO DAILY Scheduled PRN Clotrimazole (Athlete's Foot) 1 % Cream..g. 60 GM TP DAILY PRN PRN rash hydrOXYzine Hcl (HydrOXYzine Hcl) 25 Mg Tablet 25 MG PO TID PRN PRN For Itching oxyCODONE-Acetaminophen 5-325 mg (oxyCODONE-Acetaminophen 5-325 mg) 1 Each Tablet 1-2 TAB PO Q4H PRN PRN For Pain General Time Seen by MD: 22:15 Chief Complaint Other (Bilateral foot pain) Hx Obtained From: Patient Arrived By: Walk-in Onset Occurred: 3 days ago Symptom Duration: Since onset Location: : Foot left: Foot right Quality: Painful Severity: Current: Moderate Severity: Maximum: Moderate Pertinent Negative: Pt denies other symptoms Immunizations: Unknown Recent Healthcare: Recent doctor visit Similar Sx Previous: Yes Past Medical History Past Medical History H/o workup for seizures (negative EEG, was previously on Keppra, discontinued by neurology-see their consultation from February 2015) Admit 02/2015 - ETOH/GI Bleed (intubated) Alcoholic liver cirrhosis with a hx of encephalopathy Schizophrenia Diabetes Mellitus, type 2 with neuropathy Hyperlipidemia Active visual hallucinations History of violent behavior with fdc time served for assault History of substance abuse Thrombocytopenia Leukopenia Hyperammonemia Neuropathy in legs Reports: Gastritis Past Surgical History EGD on 02/28/2015 - revealed Ulcerative vs monilial esophagitis and Hypertensive portal gastropathy toe surgery Family History Noncontributory Smoking History Current Every Day Smoker Social History Patient has a long-standing history of alcoholism Alcohol Use: In recovery Drug Use: THC Other Social History: Poor social support, Local resident, Homeless Ambulatory Status Independent Review of Systems Constitutional: Denies: Fever Musculoskeletal: Reports: Extremity pain (Bilateral feet) Complete sys rev & neg: except as marked. Respiratory: Denies: Non-productive cough, Shortness of breath GI: Denies: Diarrhea, Vomiting Physical Exam Initial Vital Signs Vital Signs (First) Date Time Temp Pulse Resp B/P Pulse Ox O2 Delivery O2 Flow Rate FiO2 02/01/17 21:58 36.4 102 16 158/91 99 Room Air Initial VS: Reviewed Head / Eyes: Atraumatic, Normocephalic ENT: Conjunctiva normal, No scleral icterus Skin: Warm, Dry Neurologic: Alert, Oriented, Nonfocal Psychiatric: Mood/affect normal, Behavior normal, Normal thought content Ankle / Foot: Full range of motion Multiple toe tip amputations Scabbing to bilateral feet Glossy, hairless feet indicating poor circulation General/Constitutional: Awake, Alert Appearance / Presentation: Positive: Uncomfortable Re-Eval/Medical Decision Med Decision/Clinical Course 51-year-old with peripheral neuropathy secondary to diabetes. He is here with increased pain in the setting of alcohol withdrawal and a taper benzodiazepines recently. Discussed the fact that opioids are of no use in this setting, but we will employ alternative measures including capsaicin, amitriptyline, and clonazepam for sleep and anxiety. Discharge back to crisis in stable condition. Re-Evaluation/Progress : Time of Eval: 22:35 Patient Status: Condition improved Re-Evaluation/Progress Note: Discussed with patient physical exam findings, diagnosis, and plan for discharge. Follow-up and return to the ER instructions given. Patient agrees with plan for care and all questions were addressed. Counseled Regarding: Diagnosis, Need for follow-up, When/why to return to ED Discharge & Departure Shift Change Sign-Out Response to Therapy: Improved Impression: Primary Impression: Diabetic peripheral neuropathy Disposition: Home Discharge Condition All VS Reviewed: Yes Condition: Improved Patient Instructions: Diabetic Neuropathy (ED) Additional Instructions: Begin amitriptyline nightly to help reduce pain transmission from foot to brain. Begin clonazepam nightly for anxiety. Continue ibuprofen as tolerated. Apply capsaicin cream to the sole of the foot and around the ankle at night. Wear disposable glove or wash your hands thoroughly after applying the cream. Follow-up with Dr. Garduno in the office. Referrals: NOPCP (PCP) [facility] Scribe Attestation Portions of this note were transcribed by Xenia Hunter. I, Dr. Henao, personally performed the history, physical exam, and medical decision-making; I reviewed and confirmed the accuracy of the information in the transcribed note. Signed by: Hollis Souza, 02/02/2017, 01:15 copies to: [facility] Abiodun Henao MD Feb 01, 2017 22:16 XENIA HUNTER Feb 01, 2017 22:24
[2017-02-01] MEDS ORDERED: AMT25T PO (22:35)
[2017-02-01] MEDS ORDERED: CAPS42.58 TP (22:35)
[2017-02-01] MEDS ORDERED: KLO1T PO (22:35)
== END 2017-02-01 22:57 | disposition home or self-care (01) ==
LOC: SED 21:52
DX: E11.40 Type 2 diabetes mellitus with diabetic neuropathy, unspecified (principal); M79.672 Pain in left foot; F20.9 Schizophrenia, unspecified; E78.5 Hyperlipidemia, unspecified; F17.200 Nicotine dependence, unspecified, uncomplicated; Z79.84 Long term (current) use of oral hypoglycemic drugs; Z59.0 Homelessness; Z88.0 Allergy status to penicillin; Z88.7 Allergy status to serum and vaccine; Z88.8 Allergy status to other drugs, medicaments and biological substances
CPT/HCPCS: 96372; 99283; J1885

== ENCOUNTER 2017-03-01 12:18 | Emergency (ER) | payer MEDICARE, MEDICAID ==
[~2017-03-01] VITALS: Ht 177.8 cm; Wt 79.5 kg
[~2017-03-01 12:18] MED LIST changes: +AMT25T PO; +CAPS42.58 TP; +KLO1T PO
[2017-03-01 12:46] VITALS: BP 147/98; PULSE 112; RESP 18; O2SAT 96
--- NOTE | 2017-03-01 12:53 | ED.REPORT ---
HPI-General Illness Date of Service Mar 01, 2017 ED Provider: Dr. Sarbjit Devlin MD A 51 year old male with a history of alcohol abuse, liver cirrhosis, schizophrenia, diabetes mellitus and peripheral neuropathy presents to the ED via EMS intoxicated with suicidal ideation. EMS report that the patient expressed thoughts of suicidal ideation at the scene. Patient is currently denying suicidal ideation and declines evaluation at this time. He admits to drinking prior to arrival. He reports that he was brought here "against his will " and would like to discharged. Nursing Notes Stated Complaint: INTOXICATION Chief Complaint: Substance Abuse Nursing Notes Reviewed: Yes Allergies: Coded Allergies: Penicillins (Verified Allergy, Severe, Anaphylaxis, 01/28/17) enoxaparin (Verified Allergy, Intermediate, aggitation, 01/28/17) Tetanus Vaccines and Toxoid (Verified Allergy, Unknown, Shortness of Breath, 01/28/17) Scheduled Amitriptyline (Amitriptyline) 25 Mg Tab 25 MG PO HS Ascorbic Acid (Vitamin C) 1,000 Mg Tab.chew 1,000 MG PO DAILY Capsaicin (Capsaicin) 42.5 Gm Cream..g. 42.5 GM TP HS Clonazepam (Clonazepam) 1 Mg Tablet 1 MG PO HS Gabapentin (Gabapentin) 600 Mg Tablet 600 MG PO BID Glipizide (Glipizide) 5 Mg Tablet 5 MG PO BIDWM Levetiracetam (Keppra) 250 Mg Tablet 250 MG PO BID Linezolid (Linezolid) 600 Mg Tablet 600 MG PO BID Metformin (Metformin) 500 Mg Tablet 1,000 MG PO BID Milk Thistle Seed Extract (Milk Thistle) 140 Mg Capsule Unknown Dose PO DAILY Turmeric Root Extract (Turmeric) 500 Mg Capsule Unknown Dose PO DAILY Vit B Comp/C/FA/Iron/Vit E (Vitamin B Complex Tablet) 1 Each Tablet 1 EACH PO DAILY Scheduled PRN Clotrimazole (Athlete's Foot) 1 % Cream..g. 60 GM TP DAILY PRN PRN rash hydrOXYzine Hcl (HydrOXYzine Hcl) 25 Mg Tablet 25 MG PO TID PRN PRN For Itching oxyCODONE-Acetaminophen 5-325 mg (oxyCODONE-Acetaminophen 5-325 mg) 1 Each Tablet 1-2 TAB PO Q4H PRN PRN For Pain General Time Seen by MD: 12:53 Chief Complaint Other (Intoxication ) Hx Obtained From: Patient Arrived By: Ambulance Sudden in Onset?: No Onset Occurred: Just prior to arrival Symptom Duration: Since onset Pertinent Negative: Pt denies other symptoms Recent Healthcare: No recent hospitalization, Recent doctor visit Past Medical History Past Medical History Notes: No PCP Past Medical History H/o workup for seizures (negative EEG, was previously on Keppra, discontinued by neurology-see their consultation from February 2015) Admit 02/2015 - ETOH/GI Bleed (intubated) Alcoholic liver cirrhosis with a hx of encephalopathy Schizophrenia Diabetes Mellitus, type 2 with neuropathy Hyperlipidemia Active visual hallucinations History of violent behavior with [employer] time served for assault History of substance abuse Thrombocytopenia Leukopenia Hyperammonemia Neuropathy in legs Reports: Gastritis Past Surgical History EGD on 02/28/2015 - revealed Ulcerative vs monilial esophagitis and Hypertensive portal gastropathy toe surgery Family History Noncontributory Smoking History Current Every Day Smoker Social History Patient has a long-standing history of alcoholism Alcohol Use: In recovery Drug Use: THC Other Social History: Poor social support, Local resident, Homeless Ambulatory Status Independent Review of Systems Unable to Obtain ROS Intoxicated (ROS limited due to intoxication) Full Review of Systems Psychiatric: Denies: Suicidal ideation (Pt has both reported and denied SI ) Complete sys rev & neg: except as marked. Physical Exam Vital Signs Vital Signs Date Time Temp Pulse Resp B/P Pulse Ox O2 Delivery O2 Flow Rate FiO2 03/01/17 12:46 36.3 112 18 147/98 96 Room Air Initial VS: Reviewed Neck: Supple, Non-tender, Full range of motion Extremities: Vascular intact, Neuro intact, No swelling, No tenderness Skin: Warm, Dry, No cyanosis Neurologic: Alert, Oriented, Nonfocal General/Constitutional: Awake, Alert Appearance / Presentation: Positive: Intoxicated Head / Eyes: Atraumatic, Normocephalic, PERRL Respiratory / Chest: Atraumatic, Breath sounds NL, Breath sounds = bilat, No respiratory distress Cardiovascular: Heart rate NL, Regular rhythm, Heart sounds NL Abdomen: Atraumatic, Soft Re-Eval/Medical Decision Med Decision/Clinical Course Nigel is his usual self. By this I mean that he is crying intermittently and lucent and rational the next minute. Though I could hear him shouting from across the emergency department how much she wanted to end his life and was hoping that we, the ER staff, would kill him, when I actually so the bedside and talked to him he denies suicidal ideation. Given his intoxication I do not believe I can make a reasonable thorough assessment of his true mental state and therefore we will keep him in the ER until his alcohol level reaches legal limit of 80 or less and reassess at that time. Time of Eval: 13:04 Re-Evaluation/Progress Note: Patient is informed of the plan to keep him until EtOH levels fall to 80. He is agreeable to the plan to discharge after sobering. Counseled Regarding: Diagnosis, Need for follow-up, When/why to return to ED Discharge & Departure Shift Change Sign-Out Patient Care Transferred: Yes Discussed Complaint(s): Yes Laboratory Evaluation: Lab evaluation discussed Response to Therapy: Improved Dr. Phipps Primary Impression: Suicidal ideation Additional Impression: Alcohol intoxication Complication of substance-induced condition: uncomplicated Qualified Code: F10.120 - Alcohol abuse with intoxication, uncomplicated Disposition: Home Discharge Condition All VS Reviewed: Yes Condition: Stable Patient Instructions: Abuse of Alcohol (ED), Alcohol Intoxication (ED) Referrals: [facility] Care Transferred to: Dr. Phipps Care Transferred at: 15:00 Scribe Attestation Portions of this note were transcribed by Lazara Dodd. I, Dr. Devlin personally performed the history, physical exam and medical decision-making; I reviewed and confirmed the accuracy of the information in the transcribed note. Signed by: Hollis Whittington, 03/01/17 Sarbjit Swann MD Mar 01, 2017 12:53 LAZARA DODD Mar 01, 2017 13:00
[2017-03-01] MEDS ORDERED: LORazepam 2 mg Tablet PO ONE ×2 (13:55→16:00)
[2017-03-01 15:09] VITALS: BP 133/93; PULSE 109; RESP 18; O2SAT 94
[2017-03-01 20:38] VITALS: BP 132/82; PULSE 118; RESP 18; O2SAT 94
[2017-03-01 21:48] VITALS: BP 146/85; PULSE 112; RESP 20; O2SAT 93
== END 2017-03-01 21:51 | disposition home or self-care (01) ==
LOC: SED 12:18 → EDUNIT# 12:18 → EDBD 12:18 → SED 21:51
DX: R45.851 Suicidal ideations (principal); F10.120 Alcohol abuse with intoxication, uncomplicated; E11.9 Type 2 diabetes mellitus without complications; E78.5 Hyperlipidemia, unspecified; Z79.84 Long term (current) use of oral hypoglycemic drugs; F17.200 Nicotine dependence, unspecified, uncomplicated; Z88.0 Allergy status to penicillin; Z88.8 Allergy status to other drugs, medicaments and biological substances

== ENCOUNTER 2017-03-09 15:39 | Emergency (ER) | payer MEDICARE, MEDICAID ==
[~2017-03-09] VITALS: Ht 172.7 cm; Wt 86.4 kg
--- NOTE | 2017-03-09 15:48 | ED.REPORT ---
HPI-General Illness Date of Service Mar 09, 2017 ED Provider: Reshma Kirk MD The patient is a 51 year old male w/ a hx of EtOH, substance abuse, and frequent ED visits who presents to the ED via EMS due to EtOH withdrawal. He has not drank for 3 days and reports lower extremity pain, urine and stool incontinence, diffuse pain. He is incontinent of urine and stool en route. He states that he can't even get up to go to the bathroom. He denies fever, chills , cough, vomiting, diarrhea, suicidal ideation. The pt is moaning and yelling nonsensically at the ED. Nursing Notes Stated Complaint: ALCOHOL WITHDRAWAL Chief Complaint: Substance Abuse Nursing Notes Reviewed: Yes Allergies: Coded Allergies: Penicillins (Verified Allergy, Severe, Anaphylaxis, 01/28/17) enoxaparin (Verified Allergy, Intermediate, aggitation, 01/28/17) Tetanus Vaccines and Toxoid (Verified Allergy, Unknown, Shortness of Breath, 01/28/17) Scheduled Amitriptyline (Amitriptyline) 25 Mg Tab 25 MG PO HS Ascorbic Acid (Vitamin C) 1,000 Mg Tab.chew 1,000 MG PO DAILY Capsaicin (Capsaicin) 42.5 Gm Cream..g. 42.5 GM TP HS Clonazepam (Clonazepam) 1 Mg Tablet 1 MG PO HS Gabapentin (Gabapentin) 600 Mg Tablet 600 MG PO BID Glipizide (Glipizide) 5 Mg Tablet 5 MG PO BIDWM Levetiracetam (Keppra) 250 Mg Tablet 250 MG PO BID Linezolid (Linezolid) 600 Mg Tablet 600 MG PO BID Metformin (Metformin) 500 Mg Tablet 1,000 MG PO BID Milk Thistle Seed Extract (Milk Thistle) 140 Mg Capsule Unknown Dose PO DAILY Turmeric Root Extract (Turmeric) 500 Mg Capsule Unknown Dose PO DAILY Vit B Comp/C/FA/Iron/Vit E (Vitamin B Complex Tablet) 1 Each Tablet 1 EACH PO DAILY Scheduled PRN Clotrimazole (Athlete's Foot) 1 % Cream..g. 60 GM TP DAILY PRN PRN rash hydrOXYzine Hcl (HydrOXYzine Hcl) 25 Mg Tablet 25 MG PO TID PRN PRN For Itching oxyCODONE-Acetaminophen 5-325 mg (oxyCODONE-Acetaminophen 5-325 mg) 1 Each Tablet 1-2 TAB PO Q4H PRN PRN For Pain General Time Seen by MD: 15:47 Chief Complaint Other (alcohol withdrawal) Hx Obtained From: Patient Arrived By: Ambulance Sudden in Onset?: Yes Onset Occurred: 3 days ago Context of Onset: EtOH use (withdrawal) Symptom Duration: Since onset Quality: Painful Radiation: : Does not radiate Severity: Current: Moderate Recent Healthcare: No recent doctor visit, No recent hospitalization Similar Sx Previous: Yes Past Medical History Past Medical History Notes: No PCP Past Medical History H/o workup for seizures (negative EEG, was previously on Keppra, discontinued by neurology-see their consultation from February 2015) Admit 02/2015 - ETOH/GI Bleed (intubated) Alcoholic liver cirrhosis with a hx of encephalopathy Schizophrenia Diabetes Mellitus, type 2 with neuropathy Hyperlipidemia Active visual hallucinations History of violent behavior with assisted time served for assault History of substance abuse Thrombocytopenia Leukopenia Hyperammonemia Neuropathy in legs Reports: Gastritis Past Surgical History EGD on 02/28/2015 - revealed Ulcerative vs monilial esophagitis and Hypertensive portal gastropathy toe surgery Family History Noncontributory Smoking History Current Every Day Smoker Social History Patient has a long-standing history of alcoholism Alcohol Use: In recovery Drug Use: THC Other Social History: Poor social support, Local resident, Homeless Ambulatory Status Independent Review of Systems Full Review of Systems Constitutional: Denies: Chills, Fever Respiratory: Denies: Non-productive cough GI: Denies: Diarrhea, Vomiting Male: Reports Incontinence Musculoskeletal: Reports: Extremity pain, Joint pain Neurologic: Reports: Bowel dysfunction Psychiatric: Denies: Suicidal ideation Complete sys rev & neg: except as marked. Physical Exam (depressed, wants to quit drinking, denies being suicidal) Vital Signs Vital Signs Date Time Temp Pulse Resp B/P Pulse Ox O2 Delivery O2 Flow Rate FiO2 03/09/17 19:29 99 18 135/88 95 Room Air 03/09/17 17:36 102 19 144/80 96 Room Air 03/09/17 16:37 96 18 131/86 96 Room Air 03/09/17 15:51 37.0 99 18 156/85 98 Room Air Initial VS: Reviewed, Vital signs abnormal General/Constitutional: Awake, Alert Head / Eyes: Atraumatic, Normocephalic, PERRL ENT: Atraumatic poor dentition Respiratory / Chest: Atraumatic, Breath sounds NL, Breath sounds = bilat Cardiovascular: Regular rhythm, Heart sounds NL Heart Rate / Rhythm: Positive: Tachycardia Abdomen: No guarding, No rebound Tenderness/Guarding/Rebound: Positive: Tender suprapubic Lower Extremity / Pelvis / MS: No erythema chronic inflammatory pain to his lower extremities Skin: Warm Rash / Lesion Notes: excoriated region to right abdomen Neurologic: Oriented X3, Speech NL Interpretation & Diagnostics Lab Results Interpretation Result Diagram: 03/09/17 1600 03/09/17 1600 Test 03/09/17 16:00 03/09/17 16:33 03/09/17 17:47 White Blood Count 4.4th/mm3 (3.8-10.1) Red Blood Count 4.70mil/mm3 (4.40-5.80) Hemoglobin 14.5g/dL (13.8-17.2) Hematocrit 41.7% (41.0-50.0) Mean Corpuscular Volume 88.7fL (81-100) Mean Corpuscular Hemoglobin 30.9pg (27.0-35.0) Mean Corpuscular Hemoglobin Concent 34.8% (32.0-37.0) Red Cell Distribution Width 15.5% (12.3-15.4) Platelet Count 57bil/L (150-400) Neutrophils (%) (Auto) 66.4% (40-74) Lymphocytes (%) (Auto) 17.8% (14-46) Monocytes (%) (Auto) 12.6% (4-12) Eosinophils (%) (Auto) 2.7% (0-5) Basophils (%) (Auto) 0.5% (0-3) Sodium Level 135mEq/L (134-144) Potassium Level 3.5mEq/L (3.5-5.2) Chloride Level 94mEq/L (97-108) Carbon Dioxide Level 21mmol/L (18-29) Blood Urea Nitrogen 5mg/dL (6-24) Creatinine 0.52mg/dL (0.76-1.27) Estimat Glomerular Filtration Rate 179mL/min (>59) Glucose Level 272mg/dL (60-99) Calcium Level 8.7mg/dL (8.5-10.1) Magnesium Level 1.7mg/dL (1.6-2.6) Total Bilirubin 2.0mg/dL (0.0-1.2) Aspartate Amino Transf (AST/SGOT) 89U/L (0-50) Alanine Aminotransferase (ALT/SGPT) 60U/L (0-44) Alkaline Phosphatase 140U/L (25-150) Total Protein 7.6g/dL (6.4-8.4) Albumin 3.9g/dL (3.4-5.0) Lipase 41U/L (13-60) Hold Fermin Top Tube Received (Received) Urine Color Dark yellow (YELLOW) Urine Appearance Clear (CLEAR,HAZY) Urine pH 6.0 (5.0-8.0) Urine Specific Kendall 1.015 (1.003-1.035) Urine Protein Tracemg/dL (NEG,TRACE) Urine Glucose (UA) 1000mg/dL (NEGATIVE) Urine Ketones Tracemg/dL (NEGATIVE) Urine Occult Blood Negative (NEGATIVE) Urine Nitrite Negative (NEGATIVE) Urine Bilirubin Negative (NEGATIVE) Urine Urobilinogen 2.0mg/dL (NORMAL) Urine Leukocyte Esterase Negative (NEGATIVE) Urine RBC 0-2/hpf (0-2) Urine WBC 0-5/hpf (0-5) Urine Epithelial Cells Few/hpf (NONE-MOD) Urine Crystals None seen (NONE SEEN) Urine Bacteria None/hpf (NONE-FEW) Urine Hyaline Casts None/lpf (NONE) Urine Granular Casts None seen (NONE SEEN) Urine Waxy Casts None seen (NONE SEEN) Urine Red Blood Cell Casts None seen (NONE SEEN) Urine White Blood Cell Casts None seen (NONE SEEN) Urine Mucus None seen (None Seen) Urine Trichomonas None seen (NONE SEEN) Urine Yeast None (NONE SEEN) Urinalysis Comment None Urine Culture Reflexed Not indicated Re-Eval/Medical Decision Med Decision/Clinical Course The patient presents after 3 days of no alcohol, he was in his own feces and urine, this is not unusual for him. He also has peripheral neuropathy which causes an extensive pain. His evaluation here was not unusual for him. He initially scored a 22 on his C1 scale however he chronically has nausea and dry heaves as well as anxiety and he has a history of schizophrenia. The patient had pretty stable vital signs and no visible sweats or significant tremor. He was given only a small dose of Valium here and was able to stand and take a few steps. He does not meet criteria for admission. There is no better I suspect this point. The patient said he had money and is back to take a taxi. Time of Eval: 18:24 Re-Evaluation/Progress Note: Pt rechecked. Informed pt of normal labs and no signs of infection. Discussed plan of treatment. Counseled Regarding: Diagnosis, Lab results, Need for follow-up, When/why to return to ED Discharge & Departure Primary Impression: Alcohol withdrawal Complication of substance-induced condition: uncomplicated Qualified Code: F10.230 - Alcohol dependence with withdrawal, uncomplicated Additional Impression: Peripheral neuropathy Peripheral neuropathy type: polyneuropathy, unspecified Qualified Code: G62.9 - Polyneuropathy, unspecified Disposition: Home Discharge Condition All VS Reviewed: Yes Condition: Stable Additional Instructions: Continue abstaining from alcohol! They may have a bed at [facility] for you tomorrow. Contact them tomorrow. It is important that you follow up at the regional clinic for your regular medications. Return to the Emergency Department for any new or worsening symptoms. Referrals: RHINA (PCP) Delphineibe Attestation Portion of this note were transcribed by Sadia Estevez. I, Dr. Kirk, personally performed the history, physical exam, and medical decision-making: I reviewed and confirmed the accuracy for the information in the transcribed note. Signed by: chayito Varela, 03/09/17 1800 copies to: Reshma Jimenez MD Mar 09, 2017 15:48 Sadia Estevez Mar 09, 2017 16:04
[2017-03-09 15:51] VITALS: BP 156/85; PULSE 99; RESP 18; O2SAT 98
[2017-03-09] MEDS ORDERED: Multivitamin w/Vit K Inj 10 ML, Thiamine Inj 100 MG, Folic Acid Inj 1 MG, Magnesium Sul... IV ONE ×5 (16:03)
[2017-03-09 16:37] VITALS: BP 131/86; PULSE 96; RESP 18; O2SAT 96
[2017-03-09 16:52] LABS: EOSINOPHILS % (AUTO) 2.7 % (0-5)
[2017-03-09 16:58] LABS: Magnesium 1.7 mg/dL (1.6-2.6)
[2017-03-09 17:13] LABS: BASOPHILS % (AUTO) 0.5 % (0-3); MONOCYTES % (AUTO) 12.6 % (4-12); Mean Corpuscular Hemoglobin 30.9 pg (27.0-35.0); Mean Corpuscular Volume 88.7 fL (81-100); NEUTROPHILS % (AUTO) 66.4 % (40-74); Platelet Count 57 bil/L (150-400)
[2017-03-09 17:36] VITALS: BP 144/80; PULSE 102; RESP 19; O2SAT 96
[2017-03-09 17:59] LABS: APPEARANCE,URINE CLEAR (CLEAR,HAZY); COLOR,URINE DARK YELLOW (YELLOW); OCCULT BLOOD,URINE NEGATIVE (NEGATIVE)
[2017-03-09 19:29] VITALS: BP 135/88; PULSE 99; RESP 18; O2SAT 95
== END 2017-03-09 19:29 | disposition home or self-care (01) ==
LOC: EDSEX 15:39 → SED 15:39 → EDBD 15:39 → SED 19:29
DX: F10.230 Alcohol dependence with withdrawal, uncomplicated (principal); E11.40 Type 2 diabetes mellitus with diabetic neuropathy, unspecified; F12.20 Cannabis dependence, uncomplicated; E78.5 Hyperlipidemia, unspecified; K29.70 Gastritis, unspecified, without bleeding; F17.200 Nicotine dependence, unspecified, uncomplicated; Z59.0 Homelessness; Z79.84 Long term (current) use of oral hypoglycemic drugs; Z88.0 Allergy status to penicillin; Z88.8 Allergy status to other drugs, medicaments and biological substances; Z88.7 Allergy status to serum and vaccine
CPT/HCPCS: 36415; 80053; 81000; 83690; 83735; 85025; 96365; 96366; 96375; 99284; J3360; J3475; J7030